=== PATIENT | male | born 1975 | race Hispanic/Latino ===

== ENCOUNTER 2019-10-13 13:41 | Inpatient (IN) | payer OTHER ==
[~2019-10-13] VITALS: Ht 162.6 cm; Wt 59.3 kg
--- OUTSIDE RECORDS SUMMARY | ~2019-10-13 | XMS | Encounter Summary ---
Demographics + + + | Address | [address] | | | [place] [address] | + + + | Home Phone | | + + + | Preferred Language | Unknown | + + + | Marital Status | Single | + + + | Episcopal Affiliation | Unknown | + + + | Race | Unknown | + + + | Ethnic Group | Unknown | + + + Author + + + | Author | [facility] | | | and [place] | + + + | Organization | [facility] | | | and [place] | + + + | Address | Unknown | + + + | Phone | Unavailable | + + + Support + + +---------+ + | Name | Relationship | Address | Phone | + + +---------+ + | Mariella Olguin | ECON | Unknown | | + + +---------+ + Care Team Providers + +------+ + | Care Metal Weigher Name | Role | Phone | + +------+ + | No, Physician | PCP | Unavailable | + +------+ + Reason for Visit Auth/Cert +--------+--------+ + + + + | Status | Reason | Specialty | Diagnoses / | Referred By | Referred To | | | | | Procedures | Contact | Contact | +--------+--------+ + + + + | | | | Diagnoses | | | | | | | Left upper | | | | | | | quadrant | | | | | | | pain Nausea | | | | | | | and | | | | | | | vomiting in | | | | | | | adult | | | | | | | Diabetic | | | | | | | ketoacidosis | | | | | | | without | | | | | | | coma | | | | | | | associated | | | | | | | with type 2 | | | | | | | diabetes | | | | | | | mellitus | | | | | | | (HCC) | | | +--------+--------+ + + + + Encounter Details +--------+ + + + + | Date | Type | Department | Care Team | Description | +--------+ + + + + | 08/05/ | Anesthesia | [facility] | Giuliana Trotter CRNA | | | 2020 | Event [facility] | [address] | | | | | INTRA [address] | [place] [address] | | | | | [address]VD [place], [place] | [phone] | | | | | [address] | | | | | | [phone] | Real Jimenez | | | | | | MD [place] | | [address] | | | | | | [place] [address] | | | | | | [phone] | | | | | | | | +--------+ + + + + Anesthesia Record + + + + + | Procedure Name | Responsible | Anesthesia Start | Anesthesia Stop Time | | | Anesthesiologist | Time | | + + + + + | EDDIE (N/A aPtti) | Giuliana Trotter CRNA | 08/06/19 1435 | 08/06/19 1507 | + + + + + +----+---+ + + | Da | T | Event | Comment | | te | i | | | | | m | | | | | e | | | +----+---+ + + | 03 | 1 | An Checkout | Pre-use anesthesia machine/equipment checkout. | | /2 | 4 | | | | 7/ | 3 | | | | 20 | 0 | | | | 20 | | | | +----+---+ + + | | 1 | An Start | Reassessment prior to anesthesia induction/procedure. | | | 4 | | | | | 3 | | | | | 5 | | | +----+---+ + + | | 1 | First | | | | 4 | Inc/Proc St | | | | 3 | | | | | 6 | | | +----+---+ + + | | 1 | An | | | | 4 | Induction | | | | 3 | | | | | 8 | | | +----+---+ + + | | 1 | An | | | | 4 | Intubation | | | | 4 | | | | | 0 | | | +----+---+ + + | | 1 | Anesthesia | | | | 4 | Ready | | | | 4 | | | | | 2 | | | +----+---+ + + | | 1 | [place] | | | | 4 | 43-degrees | | | | 4 | | | | | 7 | | | +----+---+ + + | | 1 | Extubation/ | | | | 5 | Airway LDA | | | | 0 | Removal | | | | 0 | | | +----+---+ + + | | 1 | an stop | | | | 5 | data | | | | 0 | | | | | 0 | | | +----+---+ + + | | 1 | An Stop | Patient handed off to recovery nurse. | | | 0 | | | | | 7 | | | +----+---+ + + +------+ | Meds | +------+ + +---------+ | Name | Total | + +---------+ | lidocaine 2% | 100 mg | + +---------+ | propofol | 200 mg | + +---------+ | rocuronium | 5 mg | + +---------+ | succinylcholine | 120 mg | + +---------+ | dexamethasone | 4 mg | + +---------+ | phenylephrine | 200 mcg | + +---------+ | ondansetron (ZOFRAN) injection 8 | 4 mg | | mg | | + +---------+ | Plasmalyte | 500 mL | + +---------+ +---------+ | Name | +---------+ | Insp O2 | +---------+ | Exp N2O | +---------+ | Exp SEV | +---------+ + + | No blood administrations on file. | + + +--------+ + + + | Type | Details | Placement | Removal | +--------+ + + + | Periph | 08/06/19; Left; Posterior | 08/06/19 0000 by | | | eraleanna | (dorsal); Forearm; | Elisha Tuttle RN | | | IV | doyv-kzz-uwpulz catheter system; | | | | | 20 gauge | | | +--------+ + + + | Periph | 08/06/19; 1448; Right; Hand; | 08/06/19 1448 by | | | eral | zdlg-frl-eyqhnm catheter system; | Medina Bravo RN | | | IV | 20 gauge | | | +--------+ + + + | Periph | 08/01/19; 0700 (present upon | 08/01/19 0700 by | 08/06/19 1532 by | | eral | arrival); Right; Anterior | Karyn M | Elisha Tuttle RN | | IV | (palmar); Forearm; | VALENTINA Nicole | | | | [id number]-ece-bpqvkm catheter system; | | | | | 20 gauge; removed in past; | | | | | 08/06/19; 1532 | | | +--------+ + + + | Airway | Placement Date: 08/06/19; | 08/06/19 1440 by | 08/06/19 1500 by | | | Placement Time: 1440 (created via | Giuliana Trotter CRNA | Giuliana Trotter CRNA | | | procedure documentation); Mask | | | | | Ventilation: N/A; Airway Grade: | | | | | 1; Successful Technique: video | | | | | scope; Laryngoscope Blade Size: | | | | | 4; Attempts: 1; Airway Type: | | | | | endotracheal; Size: 7.5; Airway | | | | | Tube Secured At: 22; Trauma: | | | | | none; Other Equipment: stylette; | | | | | Placement Check: exhaled CO2 | | | | | detection device, bilateral chest | | | | | rise, breath sounds equal | | | | | bilaterally; Removal Date: | | | | | 08/06/19; Removal Time: 1500; | | | | | Additional Comments: RSI full | | | | | droplet precautiions in place. | | | | | Patient with multiple loose | | | | | teeth, first front toot very | | | | | loose, spoke to Nurse Tobias and | | | | | Dr. Gabriel they were witnessed | | | | | this prior to airway | | | | | manipulation. | | | +--------+ + + + documented in this encounter Social History + +-------+ +--------+------+ | Tobacco Use | Types | Packs/Day | Years | Date | | | | | Used | | + +-------+ +--------+------+ | Never Smoker | | | | | + +-------+ +--------+------+ + +---+---+---+ | Smokeless Tobacco: | | | | | Never Used | | | | + +---+---+---+ + + +---------+ + | Alcohol Use | Drinks/Week | oz/Week | Comments | + + +---------+ + | Not Currently | | | | + + +---------+ + + + + | Sex Assigned at | Date Recorded | | | | + + + | Not on file | | + + + + + + + | Job Start Date | Occupation | Industry | + + + + | Not on file | Not on file | Not on file | + + + + + + + + | Travel History | Travel Start | Travel End | + + + + + + | No recent travel history available. | + + documented as of this encounter Plan of Treatment Not on filedocumented as of this encounter Procedures + +--------+ + + + | Procedure Name | Priori | Date/Time | Associated Diagnosis | Comments | | | ty | | | | + +--------+ + + + | ANE AIRWAY NOTE | Routin | 08/06/2019 | | Results for this | | | e | 2:50 PM | | procedure are in the | | | | PDT | | results section. | + +--------+ + + + documented in this encounter Results Airway (08/06/2019 2:50 PM PDT) + + + | Narrative | Performed At | + + + | Giuliana Trotter CRNA 08/06/2019 2:54 PM Anesthesia Airway | | | Placement 08/06/2019 2:40 PM Preprocedure check: patient | | | identified, oxygen, airway equipment checked, airway assessed, | | | patient reassessment prior to induction and suction Rapid Sequence | | | Induction: yes Mask ventilation: N/A Successful technique: | | | videoscope Laryngoscope blade size: 4 Airway grade: 1 (Full view | | | of glottis) Other equipment: stylette Attempts: 1 Airway type: | | | endotracheal Size: 7.5 Cuffed: cuffed Route, reference point: right | | | side of mouth Tube depth: 22 cm LDA Airway tube secured with: pink | | | tape. Trauma: none Tube placement verification: bilateral chest | | | rise, equal bilateral breath sounds and carbon dioxide detection | | | Performing provider: Giuliana Trotter CRNA Authorizing provider: Giuliana | | | ALEXSANDER Trotter Comments: RSI full droplet precautiions in place. | | | Patient with multiple loose teeth, first front toot very loose, | | | spoke to Nurse Tobias and Dr. Gabriel they were witnessed this prior | | | to airway manipulation. Please see intraoperative grid for any | | | additional medication documentation. | | + + + documented in this encounter Visit Diagnoses Not on filedocumented in this encounter Administered Medications + +---------+ +------+------+------+ | Medication Order | MAR | Action | Dose | Rate | Site | | | Action | Date | | | | + +---------+ +------+------+------+ | balanced electrolytes in water | New Bag | 08/06/19 | | | | | (PLASMALYTE-148/NORMOSOL-R) | | 20 2:49 | | | | | infusion Intravenous, CONTINUOUS | | PM PDT | | | | | PRN, Starting 08/06/19 at | | | | | | | 1449, Anesthesia Intra-op | | | | | | + +---------+ +------+------+------+ +---------+ +---+---+---+ | New Bag | 08/06/19 | | | | | | 20 2:35 | | | | | | PM PDT | | | | +---------+ +---+---+---+ +---+---+ | | | +---+---+ + +-------+ +------+---+---+ | dexamethasone (DECADRON) 4 | Given | 08/06/19 | 4 mg | | | | mg/mL injection Intravenous, | | 20 2:49 | | | | | PRN, Starting Fri08/06/19 at | | PM PDT | | | | | 1449, Anesthesia Intra-op | | | | | | + +-------+ +------+---+---+ +---+---+ | | | +---+---+ + +-------+ +--------+---+---+ | lidocaine (PF) 2% injection | Given | 08/06/19 | 100 mg | | | | Intravenous, PRN, Starting Fri | | 2:38 | | | | | 08/06/19 at 1438, Anesthesia | | PM PDT | | | | | Intra-op | | | | | | + +-------+ +--------+---+---+ +---+---+ | | | +---+---+ + +-------+ +------+---+---+ | ondansetron (ZOFRAN) injection | Given | 08/07/19 | 8 mg | | | | 8 mg 8 mg, Intravenous, EVERY 6 | | 20 1:49 | | | | | HOURS PRN, Nausea, Vomiting, | | AM PDT | | | | | Starting 08/01/19 at 2307, | | | | | | | First line agent , MAx 24 mg/24 | | | | | | | hours, | | | | | | + +-------+ +------+---+---+ +-------+ +------+---+---+ | Given | 08/06/19 | 4 mg | | | | | 20 2:49 | | | | | | PM PDT | | | | +-------+ +------+---+---+ | Given | 08/06/19 | 8 mg | | | | | 20 7:48 | | | | | | AM PDT | | | | +-------+ +------+---+---+ +---+---+ | | | +---+---+ + +-------+ +---------+---+---+ | phenylephrine (LUBA-SYNEPHRINE, | Given | 08/06/19 | 200 mcg | | | | VAZCULEP) 10 mg per mL injection | | 20 2:45 | | | | | Intravenous, PRN, Starting Fri | | PM PDT | | | | | 08/06/19 at 1445, Anesthesia | | | | | | | Intra-op | | | | | | + +-------+ +---------+---+---+ +---+---+ | | | +---+---+ + +-------+ +--------+---+---+ | propofol (DIPRIVAN) injection | Given | 08/06/19 | 200 mg | | | | Intravenous, PRN, Starting Fri | | 20 2:38 | | | | | 08/06/19 at 1438, Anesthesia | | PM PDT | | | | | Intra-op | | | | | | + +-------+ +--------+---+---+ +---+---+ | | | +---+---+ + +-------+ +------+---+---+ | rocuronium (ZEMURON) injection | Given | 08/06/19 | 5 mg | | | | Intravenous, PRN, Starting Fri | | 20 2:38 | | | | | 08/06/19 at 1438, Anesthesia | | PM PDT | | | | | Intra-op | | | | | | + +-------+ +------+---+---+ +---+---+ | | | +---+---+ + +-------+ +--------+---+---+ | succinylcholine (ANECTINE) | Given | 08/06/19 | 120 mg | | | | injection Intravenous, PRN, | | 20 2:38 | | | | | Starting 08/06/19 at 1438, | | PM PDT | | | | | Anesthesia Intra-op | | | | | | + +-------+ +--------+---+---+ +---+---+ | | | +---+---+ documented in this encounter"
--- OUTSIDE RECORDS SUMMARY | ~2019-10-13 | XMS | Clinical Summary ---
Demographics + + + | Address | [address] | | | [place] [address] | + + + | Home Phone | | + + + | Preferred Language | Unknown | + + + | Marital Status | Single | + + + | Taoist Affiliation | Unknown | + + + | Race | Unknown | + + + | Ethnic Group | Unknown | + + + Author + + + | Author | [facility] | | | and [place] | + + + | Organization | [facility] | | | and [...] Team Providers + +------+ + | Care Personal Fitness Manager Name | Role | Phone | + +------+ + | No, Physician | PCP | Unavailable | + +------+ + Allergies No Known Allergies Medications + + + +---------+------+------+-------+ | Medication | Sig | Dispensed | Refills | Star | End | Statu | | | | | | t | Date | s | | | | | | Date | | | + + + +---------+------+------+-------+ | atorvaSTATin | Take 20 mg by mouth | | 0 | | | Activ | | (LIPITOR) 20 mg | nightly. | | | | | e | | tablet | | | | | | | + + + +---------+------+------+-------+ | lisinopril | Take 1 tablet by | 30 | 0 | 03/2 | | Activ | | (PRINIVIL,ZESTRIL) | mouth Daily. | tablet | | 9/20 | | e | | 40 MG tablet | | | | 20 | | | + + + +---------+------+------+-------+ | insulin glargine | Inject 15 Units | 2 pen | 1 | 03/2 | | Activ | | (LANTUS SOLOSTAR) | under the skin every | | | 9/20 | | e | | 100 units/mL | morning. | | | 20 | | | | injection (pen) | | | | | | | + + + +---------+------+------+-------+ | insulin lispro | Inject 0-12 Units | 10 mL | 1 | 03/2 | | Activ | | (HUMALOG) 100 | under the skin 4 | | | 8/20 | | e | | units/mL injection | times daily (with | | | 20 | | | | (vial) | meals and nightly). | | | | | | | | ---BG < 150: noneBG | | | | | | | | 150-200: 2 unitsBG | | | | | | | | 201-250: 4 unitsBG | | | | | | | | 251-300: 6 unitsBG | | | | | | | | 301-350: 8 unitsBG | | | | | | | | 351-400: 10 units BG | | | | | | | | > 400: 12 units and | | | | | | | | call provider | | | | | | + + + +---------+------+------+-------+ | oxyCODONE | Take 1 tablet by | 15 | 0 | 03/2 | | Activ | | (ROXICODONE) 5 mg | mouth every 6 hours | tablet | | 8/20 | | e | | tablet | as needed for Pain. | | | 20 | | | + + + +---------+------+------+-------+ Active Problems + + + | Problem | Noted Date | + + + | Diabetic ketoacidosis without coma associated with type 2 | 07/31/2019 | | diabetes mellitus | | + + + | HLD (hyperlipidemia) | 07/31/2019 | + + + | HTN (hypertension) | 07/31/2019 | + + + | Left upper quadrant pain | 07/31/2019 | + + + | Mild colitis, acute; splenic flexure and descending colon | 07/31/2019 | + + + | Nausea and vomiting in adult | 07/31/2019 | + + + + + | Overview: Added automatically from request for surgery | | [id number] | + + Encounters +--------+ + + + + | Date | Type | Specialty | Care Team | Description | +--------+ + + + + | 08/05/ | Anesthesia | | Giuliana Trotter CRNA | | | 2020 | Event | | Real Jimenez | | | | | | MD Latrell | | +--------+ + + + + | 08/05/ | Surgery | | Tran Vidal | EGD | | 2019 | | | MD Abbe | | +--------+ + + + + | 07/30/ | Hospital | Internal Medicine | Dao De Jesus MD | Diabetic | | 2019 - | Encounter | | Estiven Hauser MD | ketoacidosis without | | | | | Pineda Pace MD | coma associated | | 08/06/ | | | Dion Terrell MD | with type 2 diabetes | | 2019 | | | | mellitus (HCC) | | | | | | (Primary Dx); Left | | | | | | upper quadrant pain; | | | | | | Nausea and vomiting | | | | | | in adult; Diabetic | | | | | | ketoacidosis without | | | | | | coma associated | | | | | | with type 2 diabetes | | | | | | mellitus (HCC); | | | | | | Left upper quadrant | | | | | | pain; Nausea and | | | | | | vomiting in adult | +--------+ + + + + from Last 3 Months Social History + +-------+ +--------+------+ | Tobacco [...] recent travel history available. | + + Last Filed Vital Signs + + + + + | Vital Sign | Reading | Time Taken | Comments | + + + + + | Blood Pressure | 163/99 | 08/07/2019 12:11 PM | | | | | PDT | | + + + + + | Pulse | 78 | 08/07/2019 12:00 PM | | | | | PDT | | + + + + + | Temperature | 36.6 C (97.8 F) | 08/07/2019 12:00 PM | | | | | PDT | | + + + + + | Respiratory Rate | 18 | 08/07/2019 12:00 PM | | | | | PDT | | + + + + + | Oxygen Saturation | 97% | 08/07/2019 12:00 PM | | | | | PDT | | + + + + + | Inhaled Oxygen | - | - | | | Concentration | | | | + + + + + | Weight | 58.8 kg (129 lb 9.6 | 08/07/2019 3:34 AM | | | | oz) | PDT | | + + + + + | Height | 160 cm (5' 3") | 07/31/2019 11:54 PM | | | | | PDT | | + + + + + | Body Mass Index | 22.96 | 07/31/2019 11:54 PM | | | | | PDT | | + + + + + Plan of Treatment + + + + + | Health Maintenance | Due Date | Last Done | Comments | + + + + + | Vaccine: | | | | | Pneumococcal 19-64 | 0 | | | | (1 of 1 - PPSV23) | | | | + + + + + | Diabetic Eye Exam | | | | | | 2 | | | + + + + + | Diabetic Foot Exam | | | | | | 2 | | | + + + + + | Hemoglobin A1c | | 08/01/2019 | | | Screening | 0 | | | + + + + + | Vaccine: Influenza | | | | | (Season Ended) | 0 | | | + + + + + | Vaccine: | | 12/20/2015 | | | Dtap/Tdap/Td (2 - | 6 | | | | Td) | | | | + + + + + Procedures + +--------+ + + + | Procedure Name | Priori | Date/Time | Associated Diagnosis | Comments | | | ty | | | | + +--------+ + + + | POC GLUCOSE (NON | Routin | 08/07/2019 | | Results for this | | ORD) | e | 12:20 PM | | procedure are in the | | | | PDT | | results section. | + +--------+ + + + | POC GLUCOSE (NON | Routin | 08/07/2019 | | Results for this | | ORD) | e | 7:47 AM | | procedure are in the | | | | PDT | | results section. | + +--------+ + + + | POC GLUCOSE (NON | Routin | 08/07/2019 | | Results for this | | ORD) | e | 6:26 AM | | procedure are in the | | | | PDT | | results section. | + +--------+ + + + | BASIC METABOLIC | STAT | 08/07/2019 | | Results for this | | PANEL | | 4:21 AM | | procedure are in the | | | | PDT | | results section. | + +--------+ + + + | PHOSPHORUS | Routin | 08/07/2019 | | Results for this | | | e | 4:21 AM | | procedure are in the | | | | PDT | | results section. | + +--------+ + + + | CBC WITH | Routin | 08/07/2019 | | Results for this | | DIFFERENTIAL | e | 4:21 AM | | procedure are in the | | | | PDT | | results section. | + +--------+ + + + | POC GLUCOSE (NON | Routin | 08/06/2019 | | Results for this | | ORD) | e | 8:55 PM | | procedure are in the | | | | PDT | | results section. | + +--------+ + + + | US ABDOMEN LIMITED | Routin | 08/06/2019 | | Results for this | | | e | 6:33 PM | | procedure are in the | | | | PDT | | results section. | + +--------+ + + + | POC GLUCOSE (NON | Routin | 08/06/2019 | | Results for this | | ORD) | e | 4:49 PM | | procedure are in the | | | | PDT | | results section. | + +--------+ + + + | POC GLUCOSE (NON | Routin | 08/06/2019 | | Results for this | | ORD) | e | 3:21 PM | | procedure are in the | | | | PDT | | results section. | + +--------+ + + + | ANE AIRWAY NOTE | Routin | 08/06/2019 | | Results for this | | | e | 2:50 PM | | procedure are in the | | | | PDT | | results section. | + +--------+ + + + | *TERMED* [place] UPPER GI | Routin | 08/06/2019 | | Results for this | | ENDOSCOPY,EXAM | e | 2:32 PM | | procedure are in the | | | | PDT | | results section. | + +--------+ + + + | *TERMED* [place] UPPER GI | Routin | 08/06/2019 | | Results for this | | ENDOSCOPY,EXAM | e | 2:27 PM | | procedure are in the | | | | PDT | | results section. | + +--------+ + + + | EGD | | 08/06/2019 | Left upper | | | | | 2:24 PM | quadrant pain | | | | | PDT | Nausea and vomiting | | | | | | in adult | | + +--------+ + + + | HC DRUG TEST PRSMV | Routin | 08/06/2019 | | Results for this | | CHEM REYNA TENA | e | 1:31 PM | | procedure are in the | | | | PDT | | results section. | + +--------+ + + + | POC GLUCOSE (NON | Routin | 08/06/2019 | | Results for this | | ORD) | e | 11:55 AM | | procedure are in the | | | | PDT | | results section. | + +--------+ + + + | POC GLUCOSE (NON | Routin | 08/06/2019 | | Results for this | | ORD) | e | 9:29 AM | | procedure are in the | | | | PDT | | results section. | + +--------+ + + + | POC GLUCOSE (NON | Routin | 08/06/2019 | | Results for this | | ORD) | e | 8:03 AM | | procedure are in the | | | | PDT | | results section. | + +--------+ + + + | BASIC METABOLIC | STAT | 08/06/2019 | | Results for this | | PANEL | | 4:23 AM | | procedure are in the | | | | PDT | | results section. | + +--------+ + + + | PHOSPHORUS | Routin | 08/06/2019 | | Results for this | | | e | 4:23 AM | | procedure are in the | | | | PDT | | results section. | + +--------+ + + + | CBC WITH | Routin | 08/06/2019 | | Results for this | | DIFFERENTIAL | e | 4:23 AM | | procedure are in the | | | | PDT | | results section. | + +--------+ + + + | POC GLUCOSE (NON | Routin | 08/05/2019 | | Results for this | | ORD) | e | 9:11 PM | | procedure are in the | | | | PDT | | results section. | + +--------+ + + + | POC GLUCOSE (NON | Routin | 08/05/2019 | | Results for this | | ORD) | e | 5:47 PM | | procedure are in the | | | | PDT | | results section. | + +--------+ + + + | POTASSIUM | STAT | 08/05/2019 | | Results for this | | | | 3:11 PM | | procedure are in the | | | | PDT | | results section. | + +--------+ + + + | POC GLUCOSE (NON | Routin | 08/05/2019 | | Results for this | | ORD) | e | 11:50 AM | | procedure are in the | | | | PDT | | results section. | + +--------+ + + + | CT CHEST ABDOMEN | Routin | 08/05/2019 | | Results for this | | PELVIS W CONTRAST | e | 11:13 AM | | procedure are in the | | | | PDT | | results section. | + +--------+ + + + | POC GLUCOSE (NON | Routin | 08/05/2019 | | Results for this | | ORD) | e | 7:35 AM | | procedure are in the | | | | PDT | | results section. | + +--------+ + + + | BASIC METABOLIC | Routin | 08/05/2019 | | Results for this | | PANEL | e | 4:37 AM | | procedure are in the | | | | PDT | | results section. | + +--------+ + + + | PHOSPHORUS | Routin | 08/05/2019 | | Results for this | | | e | 4:37 AM | | procedure are in the | | | | PDT | | results section. | + +--------+ + + + | CBC WITH | Routin | 08/05/2019 | | Results for this | | DIFFERENTIAL | e | 4:37 AM | | procedure are in the | | | | PDT | | results section. | + +--------+ + + + | POC GLUCOSE (NON | Routin | 08/04/2019 | | Results for this | | ORD) | e | 9:14 PM | | procedure are in the | | | | PDT | | results section. | + +--------+ + + + | POTASSIUM | STAT | 08/04/2019 | | Results for this | | | | 8:51 PM | | procedure are in the | | | | PDT | | results section. | + +--------+ + + + | POC GLUCOSE (NON | Routin | 08/04/2019 | | Results for this | | ORD) | e | 5:22 PM | | procedure are in the | | | | PDT | | results section. | + +--------+ + + + | POTASSIUM | Timed | 08/04/2019 | | Results for this | | | | 1:56 PM | | procedure are in the | | | | PDT | | results section. | + +--------+ + + + | POC GLUCOSE (NON | Routin | 08/04/2019 | | Results for this | | ORD) | e | 11:56 AM | | procedure are in the | | | | PDT | | results section. | + +--------+ + + + | POC GLUCOSE (NON | Routin | 08/04/2019 | | Results for this | | ORD) | e | 8:03 AM | | procedure are in the | | | | PDT | | results section. | + +--------+ + + + | PHOSPHORUS | Routin | 08/04/2019 | | Results for this | | | e | 5:35 AM | | procedure are in the | | | | PDT | | results section. | + +--------+ + + + | MAGNESIUM | Routin | 08/04/2019 | | Results for this | | | e | 5:35 AM | | procedure are in the | | | | PDT | | results section. | + +--------+ + + + | CBC WITH | Routin | 08/04/2019 | | Results for this | | DIFFERENTIAL | e | 5:35 AM | | procedure are in the | | | | PDT | | results section. | + +--------+ + + + | COMPREHENSIVE | Routin | 08/04/2019 | | Results for this | | METABOLIC PANEL | e | 5:35 AM | | procedure are in the | | | | PDT | | results section. | + +--------+ + + + | POC GLUCOSE (NON | Routin | 08/03/2019 | | Results for this | | ORD) | e | 8:44 PM | | procedure are in the | | | | PDT | | results section. | + +--------+ + + + | POC GLUCOSE (NON | Routin | 08/03/2019 | | Results for this | | ORD) | e | 4:25 PM | | procedure are in the | | | | PDT | | results section. | + +--------+ + + + | POC GLUCOSE (NON | Routin | 08/03/2019 | | Results for this | | ORD) | e | 11:44 AM | | procedure are in the | | | | PDT | | results section. | + +--------+ + + + | POC GLUCOSE (NON | Routin | 08/03/2019 | | Results for this | | ORD) | e | 7:29 AM | | procedure are in the | | | | PDT | | results section. | + +--------+ + + + | PHOSPHORUS | Routin | 08/03/2019 | | Results for this | | | e | 5:43 AM | | procedure are in the | | | | PDT | | results section. | + +--------+ + + + | MAGNESIUM | Routin | 08/03/2019 | | Results for this | | | e | 5:43 AM | | procedure are in the | | | | PDT | | results section. | + +--------+ + + + | CBC WITH | Routin | 08/03/2019 | | Results for this | | DIFFERENTIAL | e | 5:43 AM | | procedure are in the | | | | PDT | | results section. | + +--------+ + + + | COMPREHENSIVE | Routin | 08/03/2019 | | Results for this | | METABOLIC PANEL | e | 5:43 AM | | procedure are in the | | | | PDT | | results section. | + +--------+ + + + | POC GLUCOSE (NON | Routin | 08/02/2019 | | Results for this | | ORD) | e | 8:59 PM | | procedure are in the | | | | PDT | | results section. | + +--------+ + + + | POC GLUCOSE (NON | Routin | 08/02/2019 | | Results for this | | ORD) | e | 3:58 PM | | procedure are in the | | | | PDT | | results section. | + +--------+ + + + | POC GLUCOSE (NON | Routin | 08/02/2019 | | Results for this | | ORD) | e | 12:51 PM | | procedure are in the | | | | PDT | | results section. | + +--------+ + + + | POC GLUCOSE (NON | Routin | 08/02/2019 | | Results for this | | ORD) | e | 8:26 AM | | procedure are in the | | | | PDT | | results section. | + +--------+ + + + | PHOSPHORUS | Routin | 08/02/2019 | | Results for this | | | e | 4:24 AM | | procedure are in the | | | | PDT | | results section. | + +--------+ + + + | MAGNESIUM | Routin | 08/02/2019 | | Results for this | | | e | 4:24 AM | | procedure are in the | | | | PDT | | results section. | + +--------+ + + + | CBC WITH | Routin | 08/02/2019 | | Results for this | | DIFFERENTIAL | e | 4:24 AM | | procedure are in the | | | | PDT | | results section. | + +--------+ + + + | COMPREHENSIVE | Routin | 08/02/2019 | | Results for this | | METABOLIC PANEL | e | 4:24 AM | | procedure are in the | | | | PDT | | results section. | + +--------+ + + + | POC GLUCOSE (NON | Routin | 08/01/2019 | | Results for this | | ORD) | e | 9:18 PM | | procedure are in the | | | | PDT | | results section. | + +--------+ + + + | POC GLUCOSE (NON | Routin | 08/01/2019 | | Results for this | | ORD) | e | 3:37 PM | | procedure are in the | | | | PDT | | results section. | + +--------+ + + + | POC GLUCOSE (NON | Routin | 08/01/2019 | | Results for this | | ORD) | e | 1:36 PM | | procedure are in the | | | | PDT | | results section. | + +--------+ + + + | PHOSPHORUS | RICCO | 08/01/2019 | | Results for this | | | | 11:52 AM | | procedure are in the | | | | PDT | | results section. | + +--------+ + + + | MAGNESIUM | RICCO | 08/01/2019 | | Results for this | | | | 11:52 AM | | procedure are in the | | | | PDT | | results section. | + +--------+ + + + | BASIC METABOLIC | RICCO | 08/01/2019 | | Results for this | | PANEL | | 11:52 AM | | procedure are in the | | | | PDT | | results section. | + +--------+ + + + | POC GLUCOSE (NON | Routin | 08/01/2019 | | Results for this | | ORD) | e | 11:13 AM | | procedure are in the | | | | PDT | | results section. | + +--------+ + + + | POC GLUCOSE (NON | Routin | 08/01/2019 | | Results for this | | ORD) | e | 9:51 AM | | procedure are in the | | | | PDT | | results section. | + +--------+ + + + | POC GLUCOSE (NON | Routin | 08/01/2019 | | Results for this | | ORD) | e | 8:54 AM | | procedure are in the | | | | PDT | | results section. | + +--------+ + + + | HEMOGLOBIN A1C | Add-On | 08/01/2019 | | Results for this | | | | 7:46 AM | | procedure are in the | | | | PDT | | results section. | + +--------+ + + + | PHOSPHORUS | RICCO | 08/01/2019 | | Results for this | | | | 7:46 AM | | procedure are in the | | | | PDT | | results section. | + +--------+ + + + | MAGNESIUM | RICCO | 08/01/2019 | | Results for this | | | | 7:46 AM | | procedure are in the | | | | PDT | | results section. | + +--------+ + + + | BASIC METABOLIC | RICCO | 08/01/2019 | | Results for this | | PANEL | | 7:46 AM | | procedure are in the | | | | PDT | | results section. | + +--------+ + + + | POC GLUCOSE (NON | Routin | 08/01/2019 | | Results for this | | ORD) | e | 7:40 AM | | procedure are in the | | | | PDT | | results section. | + +--------+ + + + | POC GLUCOSE (NON | Routin | 08/01/2019 | | Results for this | | ORD) | e | 6:20 AM | | procedure are in the | | | | PDT | | results section. | + +--------+ + + + | URINALYSIS WITH | STAT | 08/01/2019 | | Results for this | | MICROSCOPIC | | 5:43 AM | | procedure are in the | | | | PDT | | results section. | + +--------+ + + + | POC GLUCOSE (NON | Routin | 08/01/2019 | | Results for this | | ORD) | e | 5:29 AM | | procedure are in the | | | | PDT | | results section. | + +--------+ + + + | PHOSPHORUS | RICCO | 08/01/2019 | | Results for this | | | | 4:23 AM | | procedure are in the | | | | PDT | | results section. | + +--------+ + + + | MAGNESIUM | RICCO | 08/01/2019 | | Results for this | | | | 4:23 AM | | procedure are in the | | | | PDT | | results section. | + +--------+ + + + | CBC WITH | Routin | 08/01/2019 | | Results for this | | DIFFERENTIAL | e | 4:23 AM | | procedure are in the | | | | PDT | | results section. | + +--------+ + + + | BASIC METABOLIC | RICCO | 08/01/2019 | | Results for this | | PANEL | | 4:23 AM | | procedure are in the | | | | PDT | | results section. | + +--------+ + + + | POC GLUCOSE (NON | Routin | 08/01/2019 | | Results for this | | ORD) | e | 4:21 AM | | procedure are in the | | | | PDT | | results section. | + +--------+ + + + | POC GLUCOSE (NON | Routin | 08/01/2019 | | Results for this | | ORD) | e | 3:28 AM | | procedure are in the | | | | PDT | | results section. | + +--------+ + + + | POC GLUCOSE (NON | Routin | 08/01/2019 | | Results for this | | ORD) | e | 2:02 AM | | procedure are in the | | | | PDT | | results section. | + +--------+ + + + | POC GLUCOSE (NON | Routin | 08/01/2019 | | Results for this | | ORD) | e | 1:23 AM | | procedure are in the | | | | PDT | | results section. | + +--------+ + + + | POC GLUCOSE (NON | Routin | 08/01/2019 | | Results for this | | ORD) | e | 12:07 AM | | procedure are in the | | | | PDT | | results section. | + +--------+ + + + | POC GLUCOSE (NON | Routin | 07/31/2019 | | Results for this | | ORD) | e | 11:12 PM | | procedure are in the | | | | PDT | | results section. | + +--------+ + + + | CT ABDOMEN PELVIS W | R[facility]CO | 07/31/2019 | | Results for this | | CONTRAST | | 10:25 PM | | procedure are in the | | | | PDT | | results section. | + +--------+ + + + | HC BLOOD GASES ANY | Routin | 07/31/2019 | | Results for this | | COMBINATION | e | 9:57 PM | | procedure are in the | | | | PDT | | results section. | + +--------+ + + + | RT BLOOD GAS POINT | Routin | 07/31/2019 | | | | OF CARE | e | 9:26 PM | | | | | | PDT | | | + +--------+ + + + | ECG 12 LEAD | STAT | 07/31/2019 | | Results for this | | | | 9:02 PM | | procedure are in the | | | | PDT | | results section. | + +--------+ + + + | KETONES,SERUM | Routin | 07/31/2019 | | Results for this | | | e | 8:41 PM | | procedure are in the | | | | PDT | | results section. | + +--------+ + + + | TROPONIN I | Routin | 07/31/2019 | | Results for this | | | e | 8:41 PM | | procedure are in the | | | | PDT | | results section. | + +--------+ + + + | LIPASE | STAT | 07/31/2019 | | Results for this | | | | 8:41 PM | | procedure are in the | | | | PDT | | results section. | + +--------+ + + + | COMPREHENSIVE | STAT | 07/31/2019 | | Results for this | | METABOLIC PANEL | | 8:41 PM | | procedure are in the | | | | PDT | | results section. | + +--------+ + + + | CBC WITH | STAT | 07/31/2019 | | Results for this | | DIFFERENTIAL | | 8:41 PM | | procedure are in the | | | | PDT | | results section. | + +--------+ + + + from Last 3 Months Results POC Glucose (08/07/2019 12:20 PM PDT)Only the most recent of 40 results within the time per iod is included. + + + + + + | Component | Value | Ref Range | Performed | Pathologist | | | | | At | Signature | + + + + + + | Glucose, | 179 (H)Comment: Testing | 65 - 99 mg/dL | [facility] | | | POC | performed at [facility] [id number] | | | [address];[place], [place] | | | | | | [id number] | | | | + + + + + + + + | Specimen | + + | | + + + + + + + | Performing | Address | City/State/Zipcode | Phone Number | | Organization | | | | + + + + + | [facility] | [address] | [place] [address] | [phone] | + + + + + CBC with Differential (08/07/2019 4:21 AM PDT)Only the most recent of 8 results within the time period is included. + + + + + + | Component | Value | Ref Range | Performed | Pathologist | | | | | At | Signature | + + + + + + | WBC | 7.76 | 3.80 - 11.00 | [facility] | | | | | K/uL | LABORATORY | | + + + + + + | RBC | 4.24 | 4.20 - 5.70 | [facility] | | | | | M/uL | LABORATORY | | + + + + + + | Hemoglobin | 12.8 (L) | 13.2 - 17.0 | [facility] | | | | | g/dL | LABORATORY | | + + + + + + | Hematocrit | 36.7 (L) | 39.0 - 50.0 % | [facility] | | | | | | LABORATORY | | + + + + + + | MCV | 86.6 | 80.0 - 100.0 fl | [facility] | | | | | | LABORATORY | | + + + + + + | MCH | 30.2 | 27.0 - 34.0 pg | [facility] | | | | | | LABORATORY | | + + + + + + | MCHC | 34.9 | 32.0 - 35.5 | [facility] | | | | | g/dL | LABORATORY | | + + + + + + | RDW-SD | 37.2 | 37 - 53 fl | [facility] | | | | | | LABORATORY | | + + + + + + | Platelet | 313 | 150 - 400 K/uL | [facility] | | | Count | | | LABORATORY | | + + + + + + | MPV | 8.6Comment: NO NORMAL | fl | [facility] | | | | RANGE ESTABLISHED | | LABORATORY | | + + + + + + | Diff Type | AUTOMATED | | [facility] | | | | | | LABORATORY | | + + + + + + | % nRBC | 0.0 | 0 /100WBC | [facility] | | | | | | LABORATORY | | + + + + + + | % | 61.70 | % | [facility] | | | Neutrophils | | | LABORATORY | | + + + + + + | IMMATURE | 0.10 | % | [facility] | | | GRANULOCYTE | | | LABORATORY | | + + + + + + | % | 23.70 | % | [facility] | | | Lymphocytes | | | LABORATORY | | + + + + + + | Monocyte % | 13.90 | % | [facility] | | | | | | LABORATORY | | + + + + + + | Eosinophils | 0.30 | % | [facility] | | | % | | | LABORATORY | | + + + + + + | Basophils % | 0.30 | % | [facility] | | | | | | LABORATORY | | + + + + + + | Neutrophils | 4.79 | 1.90 - 7.40 | [facility] | | | , Absolute | | K/uL | LABORATORY | | + + + + + + | IMMATURE | 0.01Comment: NOTE NEW | 0.00 - 0.07 | [facility] | | | GRANS AB | REFERENCE RANGE | K/uL | LABORATORY | | + + + + + + | Absolute | 1.84 | 1.00 - 3.90 | [facility] | | | Lymphocytes | | K/uL | LABORATORY | | + + + + + + | Absolute | 1.08 (H) | 0.00 - 0.80 | [facility] | | | Monocytes | | K/uL | LABORATORY | | + + + + + + | Eosinophils | 0.02 | 0.00 - 0.50 | [facility] | | | , Absolute | | K/uL | LABORATORY | | + + + + + + | Basophils, | 0.02Comment: Testing | 0.00 - 0.10 | [facility] | | | Absolute | performed [place] [facility] [place] | LABORATORY | | | | [address];[place], [place] | | | | | | [id number] | | | | + + + + + + + + | Specimen | + + | Blood | + + + + + + + | Performing | Address | City/State/Zipcode | Phone Number | | Organization | | | | + + + + + | [facility] | [address] | [place] [address] | [phone] | + + + + + Phosphorus (08/07/2019 4:21 AM PDT)Only the most recent of 9 results within the time shirleyo d is included. + + + + + + | Component | Value | Ref Range | Performed | Pathologist | | | | | At | Signature | + + + + + + | Phosphorus | 3.2Comment: Testing | 2.3 - 4.8 mg/dL | [facility] | | | | performed at [facility] [place] | [facility]ORY | | | | [address];[place] | | | | | | [id number] | | | | + + + + + + + + | Specimen | + + | Blood | + + + + + + + | Performing | Address | City/State/Zipcode | Phone Number | | Organization | | | | + + + + + | [facility] | [address] | [place] [id number] | [phone] | + + + + + Basic Metabolic Panel (08/07/2019 4:21 AM PDT)Only the most recent of 6 results within the time period is included. + + + + + + | Component | Value | Ref Range | Performed | Pathologist | | | | | At | Signature | + + + + + + | Na | 140 | 135 - 145 | [facility] | | | | | mmol/L | LABORATORY | | + + + + + + | K | 3.1 (L) | 3.5 - 4.9 | [facility] | | | | | mmol/L | LABORATORY | | + + + + + + | Cl | 99 | 99 - 109 mmol/L | [facility] | | | | | | LABORATORY | | + + + + + + | CO2 | 29 | 23 - 32 mmol/L | [facility] | | | | | | LABORATORY | | + + + + + + | Anion Gap | 15 | 5 - 20 mmol/L | [facility] | | | | | | LABORATORY | | + + + + + + | Glucose | 210 (H) | 65 - 99 mg/dL | [facility] | | | | | | LABORATORY | | + + + + + + | BUN | 8 | 8 - 25 mg/dL | [facility] | | | | | | LABORATORY | | + + + + + + | Creatinine | 0.76 | 0.70 - 1.30 | [facility] | | | | | mg/dL | LABORATORY | | + + + + + + | BUN/Creatin | 11 | | [facility] | | | ine Ratio | | | LABORATORY | | + + + + + + | Calcium | 9.0 | 8.5 - 10.5 | [facility] | | | | | mg/dL | LABORATORY | | + + + + + + | Estimated | >60Comment: GFR <60: | >60 | [facility] | | | GFR | CHRONIC KIDNEY DISEASE, | mL/min/1.73m2 | LABORATORY | | | | IF FOUND OVER A 3 MONTH | | | | | | PERIOD.GFR <15: KIDNEY | | | | | | FAILURE.FOR | | | | | | AMERICANS, MULTIPLY THE | | | | | | CALCULATED GFR BY | | | | | | 1.210.This eGFR is | | | | | | calculated using the | | | | | | MDRD [facility] traceable | | | | | | equation.Testing | | | | | | performed [place] [facility] [place];[place], [place] | | | | | | [address] | | | | + + + + + + + + | Specimen | + + | Blood | + + + + + + + | Performing | Address | City/State/Zipcode | Phone Number | | Organization | | | | + + + + + | [facility] | [address] | [place] [address] | [phone] | + + + + + US Abdomen Limited (08/06/2019 6:33 PM PDT) + + | Specimen | + + | | + + + + + | Impressions | Performed At | + + + | Sludge seen in the gallbladder lumen without wall thickening or | [facility] | | pericholecystic fluid to suggest cholecystitis. Signed by: | | | Jimmy Goldberg Edward Sign Date/Time: 08/06/2019 7:10 PM | | + + + + + + | Narrative | Performed At | + + + | ULTRASOUND ABDOMEN, LIMITED CLINICAL INFORMATION: | [facility] | | Unexplained abdominal pain. COMPARISON: CT CHEST ABDOMEN PELVIS W | | | CONTRAST (08/05/2019); CT ABDOMEN PELVIS W CONTRAST (07/31/2019); | | | PROCEDURE: Evaluation of the gallbladder, if present, common bile | | | duct, liver, and right kidney. FINDINGS: Pancreas: Poorly | | | visualized. Liver: The visualized hepatic parenchyma is normal. | | | The intrahepatic bile ducts do not appear to be enlarged. The | | | portal and hepatic veins demonstrate normal direction of flow. | | | Gallbladder/Bile Duct: Gallbladder shows sludge in the lumen. Wall | | | thickness measures 2.9 mm. No pericholecystic fluid is seen. | | | Common bile duct 8.0 mm. Sonographic Gallo sign is negative. | | | Right kidney: 12.5 x 5.2 x 4.3 cm. No solid renal mass, | | | hydronephrosis or definitive calculi. Normal blood flow noted to | | | the right renal hilum. IVC normal. No ascites. | | + + + + + | Procedure Note | + + | Tobias, Rad Results In - 08/06/2019 7:13 PM PDT | | ULTRASOUND ABDOMEN, LIMITED | | | | CLINICAL INFORMATION: | | Unexplained abdominal pain. | | | | COMPARISON: | | CT CHEST ABDOMEN PELVIS W CONTRAST (08/05/2019); CT ABDOMEN PELVIS W | | CONTRAST (07/31/2019); | | | | PROCEDURE: | | Evaluation of the gallbladder, if present, common bile duct, liver, and | | right kidney. | | | | FINDINGS: | | Pancreas: Poorly visualized. | | | | Liver: The visualized hepatic parenchyma is normal. The intrahepatic | | bile ducts do not appear to be enlarged. The portal and hepatic veins | | demonstrate normal direction of flow. | | | | Gallbladder/Bile Duct: Gallbladder shows sludge in the lumen. Wall | | thickness measures 2.9 mm. No pericholecystic fluid is seen. Common | | bile duct 8.0 mm. Sonographic Gallo sign is negative. | | | | Right kidney: 12.5 x 5.2 x 4.3 cm. No solid renal mass, hydronephrosis | | or definitive calculi. Normal blood flow noted to the right renal | | hilum. | | | | IVC normal. No ascites. | | | | IMPRESSION: | | Sludge seen in the gallbladder lumen without wall thickening or | | pericholecystic fluid to suggest cholecystitis. | | | | | | | | Signed by: Jimmy Goldberg Edward | | Sign Date/Time: 08/06/2019 7:10 PM | + + + +---------+ + + | Performing | Address | City/State/Zipcode | Phone Number | | Organization | | | | + +---------+ + + | [facility] | | | | + +---------+ + + Airway (08/06/2019 2:50 PM PDT) + + [...] loose, | | | spoke to Nurse Micheline and Dr. Gabriel they were witnessed this prior | | | to airway manipulation. Please see intraoperative grid for any | | | additional medication documentation. | | + + + EGD (08/06/2019 2:32 PM PDT) + + | Specimen | + + | | + + + + + | Narrative | Performed At | + + + | [facility] | [facility] | | [facility] | [facility] | [facility] | | | Patient Name: Minerva Rodriguez , | | | Sacha Procedure Date: 08/06/2019 2:32 PMMRN: [id number] | | | of : | | | 1975 Note Status: FinalizedAttending MD: | | | Tran Vidal MD | | | | | | Procedure Type: Upper GI endoscopyIndications: | | | Epigastric abdominal painMedicines: | | | General AnesthesiaComplications: No immediate | | | complications. | | | Procedure: Pre-Anesthesia Assessment: | | | - Prior to the procedure, a History and Physical was performed, and | | | patient medications and allergies were reviewed. The patient's | | | tolerance of previous anesthesia was also reviewed. The risks | | | and benefits of the procedure and the sedation options and | | | risks were discussed with the patient. All questions were | | | answered, and informed consent was obtained. Prior | | | Anticoagulants: The patient has taken Lovenox (enoxaparin), last | | | dose was day of procedure. ASA Grade Assessment: III - A patient | | | with severe systemic disease. After reviewing the risks and | | | benefits, the patient was deemed in satisfactory condition to | | | undergo the procedure. After obtaining informed consent, the | | | endoscope was passed under direct vision. Throughout the | | | procedure, the patient's blood pressure, pulse, and oxygen | | | saturations were monitored continuously. The Endoscope was | | | introduced through the mouth, and advanced to the fourth part of | | | duodenum. The upper GI endoscopy was accomplished without | | | difficulty. The patient tolerated the procedure well. | | | | | | Estimated Blood Loss: | | | Estimated blood loss: none.Findings: LA Grade C (one or more | | | mucosal breaks continuous between tops of 2 or more mucosal | | | folds, less than 75% circumference) esophagitis was found 25 to | | | 40 cm from the incisors. Diffuse moderately erythematous mucosa | | | without bleeding was found in the stomach. The duodenal | | | bulb, first portion of the duodenum, second portion of the | | | duodenum, third portion of the duodenum and fourth portion of the | | | duodenum were normal. | | | | | | Impression: - LA Grade C reflux esophagitis. - | | | Erythematous mucosa in the stomach. Could be portal hypertensive | | | gastropathy or gastritis. Normal duodenal bulb, first portion of | | | the duodenum, second portion of the duodenum, third portion of | | | the duodenum and fourth portion of the duodenum. - No | | | specimens collected.Recommendation: - Return patient to hospital | | | [facility] for ongoing care. - Repeat upper endoscopy in 3 months for | | | surveillance. US of GB if not already done. - Resume | | | previous diet. - Continue present medications. | | | Tran Vidal MD08/06/2019 3:02:25 | | | PMThis report has been signed electronically. Note Initiated On: | | | 08/06/2019 2:32 PMNumber of Addenda: 0 [facility] | | | Center | | | - Continue present medications. | | | | | | | | |Tran Vidal MD | | |08/06/2019 3:02:25 PM | | |This report has been signed electronically. | | | | | |Note Initiated On: 08/06/2019 2:32 PM | | |Number of Addenda: 0 | | | | | | [facility] | | + + + + +---------+ + + | Performing | Address | City/State/Zipcode | Phone Number | | Organization | | | | + +---------+ + + | [facility] | | | | + +---------+ + + EGD (08/06/2019 2:27 PM PDT) + + + | Narrative | Performed At | + + + | Tran Vidal MD 08/06/2019 2:56 PM [facility] | [facility] | | [facility] Procedure: EGD | [facility] | | Indications: Abdominal pain, nausea, vomiting, early satiety. | | | He received Lovenox today. Consent: The benefits, risks | | | (bleeding, perforation, infection and reaction to medication), and | | | alternatives to the procedure were discussed and informed consent | | | obtained prior to and immediately before the procedure. Prior to | | | the start of procedure a timeout was performed to verify patient's | | | name and date, the procedure to be performed and the provider | | | performing the procedure. Monitoring: Continuous cardiac | | | monitoring, pulse, pulse oximetry, and blood pressure were monitored | | | throughout the procedure under direct supervision of endoscopist. | | | Conscious sedation was provided by the nursing staff during | | | procedure under direct supervision and instruction of the | | | endoscopist. If MAC, deep sedation or anesthesia, provided by | | | anesthesia staff. Moderate Sedation Pre-sedation Assessment | | | completed. ASA Classification: Class 3 - A patient with severe | | | systemic disease that limits activity but is not incapacitating | | | Mallampati Classification: Mallampati Class 2 (upper half of | | | tonsil fossa) Medications: MAC Procedure: | | | The gastroscope was passed through the mouth under direct | | | visualization and was advanced with ease to the 4th portion of the | | | duodenum. Retroflex exam performed in the fundus. The scope was | | | withdrawn and the mucosa was carefully examined. The secretions were | | | suctioned during advancement and withdrawal of scope to prevent | | | aspiration. There were no apparent immediate complications. | | | Throat: Endotracheal tube in place. Esophagus: Class | | | C reflux esophagitis. Stomach: Mild to moderate portal | | | hypertensive gastropathy versus gastritis in the fundus and the | | | gastric body. Duodenum: Normal up to fourth part of duodenum. | | | No esophageal stricture. No esophageal varices. No gastric | | | varices. No gastric ulcer. No gastric cancer. No duodenal | | | ulcer. No duodenitis. Impression: As above. Class C | | | reflux esophagitis. Biopsies from the stomach and esophagus not | | | taken because patient was given Lovenox today. Complications: | | | None immediate. Tissue removed: No EBL: None. | | | Recommendations: Repeat EGD in 2-3 months to document | | | healing of the esophagitis and rule out Poon's esophagus. | | | Suggest to check ultrasound of the gallbladder if patient still has | | | a gallbladder. Continue Protonix twice daily. Rawel | | | Abbe Vidal MD 08/06/2019 This note may have | | | typographical errors. Please call with any questions or | | | clarifications. | | + + + + +---------+ + + | Performing | Address | City/State/Zipcode | Phone Number | | Organization | | | | + +---------+ + + | [facility] | | | | + +---------+ + + Drugs Of Abuse Screen, Urine (H) (08/06/2019 1:31 PM PDT) + + + + + + | Component | Value | Ref Range | Performed | Pathologist | | | | | At | Signature | + + + + + + | Amp/Methamp | NEGATIVEComment: | NEG | [facility] | | | hetamine, | Positive cutoff for AMP | | LABORATORY | | | Screen, | = 1000 ng/mL | | | | | Urine | | | | | + + + + + + | Barbiturate | NEGATIVEComment: | NEG | [facility] | | | s Screen, | Positive cutoff for KRISTINA | | LABORATORY | | | Urine | = 200 ng/mL | | | | + + + + + + | Benzodiazep | NEGATIVEComment: | NEG | [facility] | | | luis | Positive cutoff for | | LABORATORY | | | Screen, | BENZO = 200 ng/mL | | | | | Urine | | | | | + + + + + + | Cocaine | NEGATIVEComment: | NEG | [facility] | | | Metabolites | Positive cutoff for MARCELLO | | LABORATORY | | | , Ur | = 300 ng/mL | | | | + + + + + + | Methadone | NEGATIVEComment: | NEG | [facility] | | | Screen, | Positive cutoff for MTD | | LABORATORY | | | Urine | = 300 ng/mL | | | | + + + + + + | Opiates | POSITIVE (A)Comment: | NEG | [facility] | | | Screen, | Positive cutoff for OPI | | LABORATORY | | | Urine | = 300 ng/mL | | | | + + + + + + | Phencyclidi | NEGATIVEComment: | NEG | [facility] | | | ne Screen, | Positive cutoff for PCP | | LABORATORY | | | Urine | = 25 ng/mL | | | | + + + + + + | Tetrahydroc | NEGATIVEComment: | NEG | [facility] | | | annabinol(T | Positive cutoff for | | LABORATORY | | | HC) | THC = 50 ng/mLThe above | | | | | | are unconfirmed | | | | | | screening results. | | | | | | These results are to | | | | | | be used onlyfor medical | | | | | | (i.e.,treatment) | | | | | | purposes. Unconfirmed | | | | | | screening results must | | | | | | notbe used for | | | | | | non-medical purposes | | | | | | (e.g., employment | | | | | | testing, legal | | | | | | testing).Testing | | | | | | performed [place] [facility] [place] | | | | | | [address];[place] | | | | | | [address] | | | | + + + + + + + + | Specimen | + + | Urine - Urine | | specimen obtained by | | clean catch | | procedure (specimen) | + + + + + + + | Performing | Address | City/State/Zipcode | Phone Number | | Organization | | | | + + + + + | [facility] | [address] | [place] [address] | [phone] | + + + + + Potassium (08/05/2019 3:11 PM PDT)Only the most recent of 3 results within the time period is included. + + + + + + | Component | Value | Ref Range | Performed | Pathologist | | | | | At | Signature | + + + + + + | K | 3.0 (L)Comment: Testing | 3.5 - 4.9 | [facility] | | | | performed at [facility] [place] | mmol/L | LABORATORY | | | | [address];[place] | | | | | | [address] | | | | + + + + + + + + | Specimen | + + | Blood | + + + + + + + | Performing | Address | City/State/Zipcode | Phone Number | | Organization | | | | + + + + + | [facility] | [address] | [place] [address] | [phone] | + + + + + CT Chest Abdomen Pelvis w Contrast (08/05/2019 11:13 AM PDT) + + | Specimen | + + | | + + + + + | Impressions | Performed At | + + + | *Trace perisplenic free fluid in left subphrenic region, similar to | [facility] | | CT dated 07/31/2019. *Over distended urinary bladder. *Interval | | | resolution of previously visualized mild thickening of the colon as | | | compared to CT dated 07/31/2019. *Diffuse hepatic steatosis. | | | *Incidental findings as detailed above. Signed by: Jackelin | | | Tram Tsang Date/Time: 08/05/2019 11:38 AM | | + + + + + + | Narrative | Performed At | + + + | CT CHEST ABDOMEN AND PELVIS WITH CONTRAST CLINICAL | [facility] | | INFORMATION: Unexplained left side pain from the abdominal area to | | | left chest. recent CT abdomen showing colitis. COMPARISON: CT | | | ABDOMEN PELVIS W CONTRAST (07/31/2019); PROCEDURE: Axial images | | | through the chest, abdomen and pelvis after the administration of 100 | | | ml omnipaque 350 intravenous contrast. Multiplanar reconstructions. | | | At least one of the following CT dose optimization techniques were | | | used: Automated exposure control; Adjustment of mA and/or kV | | | according to patient size; Use of iterative reconstruction technique. | | | FINDINGS: CHEST Lungs, Pleura and Airways: No significant | | | pulmonary abnormality. No airway narrowing or obstruction. No pleural | | | effusion or pneumothorax. Mediastinum: No significant pericardial, | | | great vessel or esophageal abnormality. No mediastinal mass. Lymph | | | Nodes: No adenopathy. ABDOMEN Liver and Biliary: No gallbladder | | | or biliary abnormality. Diffuse hepatic steatosis. Pancreas, | | | Spleen and Adrenals: No pancreatitis or pancreatic mass. No | | | splenomegaly, splenic mass or splenic hemorrhage. No significant | | | adrenal abnormality. Kidneys: No hydronephrosis, calculus or solid | | | renal mass. ABDOMEN AND PELVIS Bowel: No small bowel or colonic | | | dilation or adjacent inflammation. No appendiceal dilation or | | | inflammation. Vessels: No significant abnormality in the aorta or its | | | proximal branches. Accessory left renal artery. No significant | | | abnormality in the portal veins, mesenteric veins or systemic veins. | | | Lymph Nodes: No adenopathy. Peritoneum and Retroperitoneum: Trace | | | perisplenic free in left subphrenic region, image 171/series 5. No | | | pneumoperitoneum.. No significant retroperitoneal abnormality. | | | PELVIS Genitourinary: The urinary bladder is over distended. No | | | urinary bladder stone. No pelvic masses. BODY WALL Soft | | | Tissues: Small locules of subcutaneous fat in ventral abdominal wall, | | | image 285/series 4, probably related to subcutaneous injections.. | | | Small fat containing right inguinal hernia. Bones: No acute fracture | | | or vertebral end plate destruction. Subtle sclerotic lesion in T9 | | | vertebra, nonspecific, possible hemangioma, similar to prior CT. | | | Thoracolumbar scoliosis, probably positional. Grade 1 | | | retrolisthesis of L5 on S1. Partial bony bridging across both | | | sacroiliac joints. | | + + + + + | Procedure Note | + + | Tobias, Rad Results In - 08/05/2019 11:42 AM PDT | | CT CHEST ABDOMEN AND PELVIS WITH CONTRAST | | | | CLINICAL INFORMATION: | | Unexplained left side pain from the abdominal area to left chest. | | recent CT abdomen showing colitis. | | | | COMPARISON: | | CT ABDOMEN PELVIS W CONTRAST (07/31/2019); | | | | PROCEDURE: | | Axial images through the chest, abdomen and pelvis after the | | administration of 100 ml omnipaque 350 intravenous contrast. | | Multiplanar reconstructions. | | | | At least one of the following CT dose optimization techniques were | | used: Automated exposure control; Adjustment of mA and/or kV according | | to patient size; Use of iterative reconstruction technique. | | | | FINDINGS: | | CHEST | | Lungs, Pleura and Airways: No significant pulmonary abnormality. No | | airway narrowing or obstruction. No pleural effusion or pneumothorax. | | Mediastinum: No significant pericardial, great vessel or esophageal | | abnormality. No mediastinal mass. | | Lymph Nodes: No adenopathy. | | | | ABDOMEN | | Liver and Biliary: No gallbladder or biliary abnormality. Diffuse | | hepatic steatosis. | | Pancreas, Spleen and Adrenals: No pancreatitis or pancreatic mass. No | | splenomegaly, splenic mass or splenic hemorrhage. No significant | | adrenal abnormality. | | Kidneys: No hydronephrosis, calculus or solid renal mass. | | | | ABDOMEN AND PELVIS | | Bowel: No small bowel or colonic dilation or adjacent inflammation. No | | appendiceal dilation or inflammation. | | Vessels: No significant abnormality in the aorta or its proximal | | branches. Accessory left renal artery. No significant abnormality in | | the portal veins, mesenteric veins or systemic veins. | | Lymph Nodes: No adenopathy. | | Peritoneum and Retroperitoneum: Trace perisplenic free in left | | subphrenic region, image 171/series 5. No pneumoperitoneum.. No | | significant retroperitoneal abnormality. | | | | PELVIS | | Genitourinary: The urinary bladder is over distended. No urinary | | bladder stone. No pelvic masses. | | | | BODY WALL | | Soft Tissues: Small locules of subcutaneous fat in ventral abdominal | | wall, image 285/series 4, probably related to subcutaneous injections.. | | Small fat containing right inguinal hernia. | | Bones: No acute fracture or vertebral end plate destruction. Subtle | | sclerotic lesion in T9 vertebra, nonspecific, possible hemangioma, | | similar to prior CT. Thoracolumbar scoliosis, probably positional. | | Grade 1 retrolisthesis of L5 on S1. Partial bony bridging across both | | sacroiliac joints. | | | | IMPRESSION: | | *Trace perisplenic free fluid in left subphrenic region, similar to CT | | dated 07/31/2019. | | *Over distended urinary bladder. | | *Interval resolution of previously visualized mild thickening of the | | colon as compared to CT dated 07/31/2019. | | *Diffuse hepatic steatosis. | | *Incidental findings as detailed above. | | | | | | | | Signed by: Trinh Benítez, Tram | | Sign Date/Time: 08/05/2019 11:38 AM | + + + +---------+ + + | Performing | Address | City/State/Zipcode | Phone Number | | Organization | | | | + +---------+ + + | [facility] | | | | + +---------+ + + Magnesium (08/04/2019 5:35 AM PDT)Only the most recent of 6 results within the time period is included. + + + + + + | Component | Value | Ref Range | Performed | Pathologist | | | | | At | Signature | + + + + + + | Magnesium | 2.3Comment: Testing | 1.7 - 2.4 mg/dL | [facility] | | | | performed at [facility], [address] | | LABORATORY | | | | [facility], | | | | | | [place] [address] | | | | + + + + + + + + | Specimen | + + | Blood | + + + + + + + | Performing | Address | City/State/Zipcode | Phone Number | | Organization | | | | + + + + + | [facility] | [address] | [place] [address] | [phone] | + + + + + Comprehensive Metabolic Panel (08/04/2019 5:35 AM PDT)Only the most recent of 4 results wi thin the time period is included. + + + + + + | Component | Value | Ref Range | Performed | Pathologist | | | | | At | Signature | + + + + + + | Na | 133 (L) | 135 - 145 | [facility] | | | | | mmol/L | LABORATORY | | + + + + + + | K | 2.7 (LL)Comment: RESULT | 3.5 - 4.9 | [facility] | | | | READ BACK BY:ONEIDA Richardson ON | mmol/L | LABORATORY | | | | [place] [facility] [place] 08/04/[place] | | | | | | @ 0648. JR | | | | | | | | | | + + + + + + | Cl | 95 (L) | 99 - 109 mmol/L | [facility] | | | | | | LABORATORY | | + + + + + + | CO2 | 24 | 23 - 32 mmol/L | [facility] | | | | | | LABORATORY | | + + + + + + | Anion Gap | 17 | 5 - 20 mmol/L | [facility] | | | | | | LABORATORY | | + + + + + + | Glucose | 199 (H) | 65 - 99 mg/dL | [facility] | | | | | | LABORATORY | | + + + + + + | BUN | 14 | 8 - 25 mg/dL | [facility] | | | | | | LABORATORY | | + + + + + + | Creatinine | 0.7 | 0.70 - 1.30 | [facility] | | | | | mg/dL | LABORATORY | | + + + + + + | BUN/Creatin | 20 | | [facility] | | | ine Ratio | | | LABORATORY | | + + + + + + | Calcium | 8.3 (L) | 8.5 - 10.5 | [facility] | | | | | mg/dL | LABORATORY | | + + + + + + | Protein, | 7.2 | 6.3 - 8.2 g/dL | [facility] | | | Total | | | LABORATORY | | + + + + + + | Albumin | 3.3 (L) | 3.6 - 5.0 g/dL | [facility] | | | | | | LABORATORY | | + + + + + + | Globulin | 3.9 | 1.3 - 4.9 g/dL | [facility] | | | | | | LABORATORY | | + + + + + + | A/G Ratio | 0.8 (L) | 1.0 - 2.4 | [facility] | | | | | | LABORATORY | | + + + + + + | BILIRUBIN, | 1.4 | 0.1 - 1.5 mg/dL | [facility] | | | TOTAL | | | LABORATORY | | + + + + + + | ALK PHOS | 75 | 35 - 115 U/L | [facility] | | | | | | LABORATORY | | + + + + + + | AST | 16 | 10 - 45 U/L | [facility] | | | | | | LABORATORY | | + + + + + + | ALT | 46 | 10 - 65 U/L | [facility] | | | | | | LABORATORY | | + + + + + + | Estimated | >60Comment: GFR <60: | >60 | [facility] | | | GFR | CHRONIC KIDNEY DISEASE, | mL/min/1.73m2 | LABORATORY | | | | IF FOUND OVER A 3 MONTH | | | | | | PERIOD.GFR <15: KIDNEY | | | | | | FAILURE.FOR | | | | | | AMERICANS, MULTIPLY THE | | | | | | CALCULATED GFR BY | | | | | | 1.210.This eGFR is | | | | | | calculated using the | | | | | | MDRD [facility] traceable | | | | | | equation.Testing | | | | | | performed at [facility], [address] | | | | | | [facility], | | | | | | [place] [address] | | | | + + + + + + + + | Specimen | + + | Blood | + + + + + + + | Performing | Address | City/State/Zipcode | Phone Number | | Organization | | | | + + + + + | [facility] | [address] | [place] [address] | [phone] | + + + + + Hemoglobin A1C (08/01/2019 7:46 AM PDT) + + + + + + | Component | Value | Ref Range | Performed | Pathologist | | | | | At | Signature | + + + + + + | Hemoglobin | 17.0 (H)Comment: HbA1c | 4.0 - 6.0 % | [facility] | | | A1c | method is certified by | | LABORATORY | | | | NGSP and traceable to | | | | | | the DCCT reference | | | | | | method.ADA guidelines | | | | | | indicate: | | | | | | Prediabetes: 5.7 - 6.4 | | | | | | Diabetes: >6.4 | | | | | | Glycemic control for | | | | | | adults with diabetes: | | | | | | <7.0 | | | | + + + + + + | Estimated | 441 (H)Comment: | <154 mg/dL | [facility] | | | Average | Estimated Average | | LABORATORY | | | Glucose | Glucose calculated from | | | | | | hemoglobin A1c by use of | | | | | | the ADArecommended | | | | | | formula.Testing | | | | | | performed at [facility], [address] | | | | | [facility], | | | | | | [place] [address] | | | | + + + + + + + + | Specimen | + + | Blood | + + + + + + + | Performing | Address | City/State/Zipcode | Phone Number | | Organization | | | | + + + + + | [facility] | [address] | [place] [address] | [phone] | + + + + + Urinalysis With Microscopic (08/01/2019 5:43 AM PDT) + + + + + + | Component | Value | Ref Range | Performed | Pathologist | | | | | At | Signature | + + + + + + | Color, UA | YELLOW | | [facility] | | | | | | LABORATORY | | + + + + + + | Clarity, UA | CLEAR | | [facility] | | | | | | LABORATORY | | + + + + + + | Specific | 1.044 (H) | 1.002 - 1.030 | [facility] | | | [place], | | | LABORATORY | | | Urine | | | | | + + + + + + | Leukocyte | NEGATIVE | NEG | [facility] | | | esterase, | | | LABORATORY | | | UA | | | | | + + + + + + | Nitrite, UA | NEGATIVE | NEG | [facility] | | | | | | LABORATORY | | + + + + + + | Urobilinoge | NORMAL | <1.6 mg/dL | [facility] | | | n, Ur | | | LABORATORY | | + + + + + + | Protein, | NEGATIVE | NEG mg/dL | [facility] | | | Urine | | | LABORATORY | | | (mg/dL) | | | | | + + + + + + | pH, Urine | 5.0 | 5.0 - 8.0 | [facility] | | | | | | LABORATORY | | + + + + + + | Blood, UA | SMALL (A) | NEG | [facility] | | | | | | LABORATORY | | + + + + + + | Ketones, UA | 80 (A) | NEG mg/dL | [facility] | | | | | | LABORATORY | | + + + + + + | Bilirubin, | NEGATIVE | NEG | [facility] | | | UA | | | LABORATORY | | + + + + + + | Glucose, Ur | >500 (A) | NEG mg/dL | [facility] | | | | | | LABORATORY | | + + + + + + | WBC UA | 0-2 | 0 - 5 /hpf | [facility] | | | | | | LABORATORY | | + + + + + + | Red Blood | 0-2 | 0 - 2 /hpf | [facility] | | | Cells, | | | LABORATORY | | | Urine | | | | | + + + + + + | Squamous | 16-25 | /lpf | [facility] | | | Epithelial | | | LABORATORY | | | Cells, | | | | | | Urine | | | | | + + + + + + | Bacteria, | NONE SEEN | NONE | [facility] | | | Urine | | | LABORATORY | | + + + + + + | Mucus, | 1+Comment: Testing | | [facility] | | | Urine | performed at [facility] [place] | LAB[facility]ATORY | | | | [address];[place], [place] | | | | | | [address] | | | | + + + + + + + + | Specimen | + + | Urine - Urine | | specimen (specimen) | + + + + + + + | Performing | Address | City/State/Zipcode | Phone Number | | Organization | | | | + + + + + | [facility] | [address] | [place] [address] | [phone] | + + + + + CT Abdomen Pelvis w Contrast (07/31/2019 10:25 PM PDT) + + | Specimen | + + | | + + + + + | Impressions | Performed At | + + + | 1. Mild colitis of the splenic flexure and descending colon. 2. | [facility] | | Hepatic steatosis. 3. Marked distention of the urinary bladder. No | | | pelvic mass. Signed by: Trinh Melendez, Cyn Su | | | Date/Time: 07/31/2019 10:35 PM | | + + + + + + | Narrative | Performed At | + + + | CT ABDOMEN AND PELVIS WITH CONTRAST CLINICAL INFORMATION: | [facility] | | Left upper quadrant pain and nausea. COMPARISON: None | | | PROCEDURE: Axial images through the abdomen and pelvis after the | | | administration of 100 ml Omnipaque 350 intravenous contrast. | | | Multiplanar reconstructions. At least one of the following CT dose | | | optimization techniques were used: Automated exposure control; | | | Adjustment of mA and/or kV according to patient size; Use of | | | iterative reconstruction technique. FINDINGS: LUNG BASES: No | | | significant pulmonary abnormality. No pleural effusion or | | | pneumothorax. ABDOMEN Liver and Biliary: No gallbladder or | | | biliary abnormality. Hepatic steatosis. Pancreas, Spleen and | | | Adrenals: No pancreatitis or pancreatic mass. No splenomegaly, | | | splenic mass or splenic hemorrhage. No significant adrenal | | | abnormality. Kidneys: No hydronephrosis, calculus or solid renal | | | mass. ABDOMEN AND PELVIS Bowel: No small bowel dilation or | | | adjacent inflammation. No appendiceal dilation or inflammation. | | | Wall thickening of the splenic flexure and descending colon. | | | Vessels: No significant abnormality in the aorta or its proximal | | | branches. No significant abnormality in the portal veins, mesenteric | | | veins or systemic veins. Lymph Nodes: No adenopathy. Peritoneum and | | | Retroperitoneum: No ascites or free air. No significant | | | retroperitoneal abnormality. PELVIS Genitourinary: Marked | | | distention of the urinary bladder. No pelvic mass. BODY WALL | | | Soft Tissues: No bowel or inflamed fat containing hernia, mass or | | | hemorrhage. Bones: No acute fracture or vertebral end plate | | | destruction. No lytic or blastic lesion. | | + + + + + | Procedure Note | + + | Tobias, Rad Results In 07/31/2019 10:38 PM PDT | | CT ABDOMEN AND PELVIS WITH CONTRAST | | | | CLINICAL INFORMATION: | | Left upper quadrant pain and nausea. | | | | COMPARISON: | | None | | | | PROCEDURE: | | Axial images through the abdomen and pelvis after the administration of | | 100 ml Omnipaque 350 intravenous contrast. Multiplanar reconstructions. | | | | At least one of the following CT dose optimization techniques were | | used: Automated exposure control; Adjustment of mA and/or kV according | | to patient size; Use of iterative reconstruction technique. | | | | FINDINGS: | | LUNG BASES: No significant pulmonary abnormality. No pleural effusion | | or pneumothorax. | | | | ABDOMEN | | Liver and Biliary: No gallbladder or biliary abnormality. Hepatic | | steatosis. | | Pancreas, Spleen and Adrenals: No pancreatitis or pancreatic mass. No | | splenomegaly, splenic mass or splenic hemorrhage. No significant | | adrenal abnormality. | | Kidneys: No hydronephrosis, calculus or solid renal mass. | | | | ABDOMEN AND PELVIS | | Bowel: No small bowel dilation or adjacent inflammation. No appendiceal | | dilation or inflammation. Wall thickening of the splenic flexure and | | descending colon. | | Vessels: No significant abnormality in the aorta or its proximal | | branches. No significant abnormality in the portal veins, mesenteric | | veins or systemic veins. | | Lymph Nodes: No adenopathy. | | Peritoneum and Retroperitoneum: No ascites or free air. No significant | | retroperitoneal abnormality. | | | | PELVIS | | Genitourinary: Marked distention of the urinary bladder. No pelvic | | mass. | | | | BODY WALL | | Soft Tissues: No bowel or inflamed fat containing hernia, mass or | | hemorrhage. | | Bones: No acute fracture or vertebral end plate destruction. No lytic | | or blastic lesion. | | | | IMPRESSION: | | 1. Mild colitis of the splenic flexure and descending colon. | | 2. Hepatic steatosis. | | 3. Marked distention of the urinary bladder. No pelvic mass. | | | | | | | | Signed by: Trinh Melendez Julie | | Sign Date/Time: 07/31/2019 10:35 PM | + + + +---------+ + + | Performing | Address | City/State/[facility] | Phone Number | | Organization | | | | + +---------+ + + | [facility] | | | | + +---------+ + + Blood gas, Venous (07/31/2019 9:57 PM PDT) + + + + + + | Component | Value | Ref Range | Performed | Pathologist | | | | | At | Signature | + + + + + + | pH, Venous, | 7.180 (L)Comment: This | 7.310 - 7.410 | [facility] | | | POC | test was developed and | | LABORATORY | | | | its performance | | | | | | characteristics | | | | | | determined by[facility], it | | | | | | has not been cleared or | | | | | | approved by the [place] FDA. | | | | | | Clinicians should | | | | | | beadvised to consider a | | | | | | patient's signs, | | | | | | symptoms, history, and | | | | | | results of | | | | | | otherdiagnostic tests | | | | | | when interpreting | | | | | | results from these | | | | | | cartridges. | | | | + + + + + + | PCO2, | 33 (L) | 41 - 51 mmHG | [facility] | | | Venous, POC | | | LABORATORY | | + + + + + + | pO2, Venous | 47 (H) | 30 - 40 mmHG | [facility] | | | | | | LABORATORY | | + + + + + + | HCO3, | 12 (L) | 23 - 28 mmol/L | [facility] | | | Venous | | | LABORATORY | | + + + + + + | TCO2, POC | 13 (L) | 24 - 29 mEq/L | [facility] | | | | | | LABORATORY | | + + + + + + | POC Base | 16 (H) | 0.0 - 2.0 | [facility] | | | Deficit | | mmol/L | LABORATORY | | | mmol/L | | | | | + + + + + + | POC | 72.0 | 60 - 85 % | [facility] | | | [id number].BLDV.QN | | | LABORATORY | | | .(%) | | | | | + + + + + + | FiO2, POC | 21Comment: Testing | % | [facility] | | | | performed at [facility] [place] | LAB[address]AT[address] | | | [address];[place], [place] | | | | | | [address] | | | | + + + + + + + + | Specimen | + + | | + + + + + + + | Performing | Address | City/State/Zipcode | Phone Number | | Organization | | | | + + + + + | [facility] | [address] | [place] [address] | [phone] | + + + + + ECG 12 lead (07/31/2019 9:02 PM PDT) + + + + + + | Component | Value | Ref Range | Performed | Pathologist | | | | | At | Signature | + + + + + + | VENTRICULAR | 76 | BPM | [facility] | | | RATE EKG | | | | | + + + + + + | ATRIAL RATE | 76 | BPM | [facility] | | + + + + + + | P-R | 142 | ms | [facility] | | | INTERVAL | | | | | + + + + + + | QRS | 98 | ms | [facility] | | | DURATION | | | | | + + + + + + | Q-T | 442 | ms | [facility] | | | INTERVAL | | | | | + + + + + + | Q-T | 497 | ms | [facility] | | | INTERVAL | | | | | | (CORRECTED) | | | | | + + + + + + | P WAVE AXIS | 52 | degrees | [facility] | | + + + + + + | QRS AXIS | 67 | degrees | [facility] | | + + + + + + | T AXIS | 59 | degrees | [facility] | | + + + + + + | INTERPRETAT | Normal sinus | | [facility] | | | ION TEXT | rhythmProlonged | | | | | | QTAbnormal ECGNo | | | | | | previous ECGs | | | | | | availableThis ECG | | | | | | contains Unconfirmed | | | | | | Interpretation | | | | | | Statements. See ED | | | | | | Record for Physician | | | | | | Interpretation. | | | | | | Confirmed by MUSE READ | | | | | | ONLY, -COMPUTER ([id number]), | | | | | | photography editor ALEKSANDRA LOREDO | | | | | | ([id number]) on 08/01/2019 | | | | | | 1:06:52 AM | | | | + + + + + + + + | Specimen | + + | | + + + + + | Narrative | Performed At | + + + | | | + + + + +---------+ + + | Performing | Address | City/State/Zipcode | Phone Number | | Organization | | | | + +---------+ + + | [facility] | | | | + +---------+ + + Troponin I (07/31/2019 8:41 PM PDT) + + + + + + | Component | Value | Ref Range | Performed | Pathologist | | | | | At | Signature | + + + + + + | Troponin I | <0.006Comment: 0.04 | 0.00 - 0.04 | [facility] | | | | ng/mL or less | ng/mL | LABORATORY | | | | Negative, repeat | | | | | | testing in four to six | | | | | | hour ifclinically | | | | | | indicted0.05 to 0.77 | | | | | | ng/mL | | | | | | Suspicious for | | | | | | myocardial injury. | | | | | | Serial measurementsmay | | | | | | be necessary to confirm | | | | | | or exclude the diagnosis | | | | | | of acute | | | | | | coronarysyndrome. Repeat | | | | | | testing in four to six | | | | | | hours if indicated.0.78 | | | | | | or greater ng/mL | | | | | | Consistent with | | | | | | myocardial injury. | | | | | | Clinical andlaboratory | | | | | | correlation recommended. | | | | | | Testing performed at | | | | | | [facility] [place] | | | | | [address];[place] [address] | | | | + + + + + + + + | Specimen | + + | | + + + + + + + | Performing | Address | City/State/Zipcode | Phone Number | | Organization | | | | + + + + + | [facility] | [address] | [place] [address] | [phone] | + + + + + Ketones, Serum (07/31/2019 8:41 PM PDT) + + + + + + | Component | Value | Ref Range | Performed | Pathologist | | | | | At | Signature | + + + + + + | Ketones, | GEE (A)Comment: | NEG | [facility] | | | Blood | Testing performed at | | LABORATORY | | | | [facility] [place];[address];[place] [address] | | | | + + + + + + + + | Specimen | + + | | + + + + + + + | Performing | Address | City/State/Zipcode | Phone Number | | Organization | | | | + + + + + | [facility] | [address] | [place] [address] | [phone] | + + + + + Lipase (07/31/2019 8:41 PM PDT) + + + + + + | Component | Value | Ref Range | Performed | Pathologist | | | | | At | Signature | + + + + + + | Lipase | 41Comment: Testing | 12 - 53 U/L | [facility] | | | | performed at [facility] [place];[address] | LABORAT[address] | | | [address];[place] | | | | | | [address] | | | | + + + + + + + + | Specimen | + + | Blood | + + + + + + + | Performing | Address | City/State/Zipcode | Phone Number | | Organization | | | | + + + + + | [facility] | [address] | [place] [address] | [phone] | + + + + + from Last 3 Months Advance Directives + + + + + | Type | Date Recorded | Patient | Explanation | | | | Partnership Development Manager | | + + + + + | Power of | | | | | Caponizer | | | | + + + + + | Advance | 08/01/2019 10:14 | | | | Directive | AM | | | + + + + + + + + + + | Code Status | Date | Date | Comments | | | Activated | Inactivated | | + + + + + | Full Code | 07/31/2019 | 08/07/2019 | | | | 11:57 PM | 4:42 PM | | + + + + +
--- OUTSIDE RECORDS SUMMARY | ~2019-10-13 | XMS | Encounter Summary ---
Demographics + + + | Address | [address] | | | [place] [address] | + + + | Home Phone | | + + + | Preferred Language | Unknown | + + + | Marital Status | Single | + + + | Gnosticism Affiliation | Unknown | + + + | Race | Unknown | + + + | Ethnic Group | Unknown | + + + Author + + + | Author | [facility] | | | and [place] | + + + | Organization | [facility] | | | and [place] | + + + | Address | Unknown | + + + | Phone | Unavailable | + + + Support + + +---------+ + | Name | Relationship | Address | Phone | + + +---------+ + | aMriella Olguin | ECON | Unknown | | + + +---------+ + Care Team Providers + +------+ + | Care Computer Video Game Designer Name | Role | Phone | + +------+ + | No, Physician | PCP | Unavailable | + +------+ + Reason for Visit + + + | Reason | Comments | + + + | Emesis | x2 days | + + + | Nausea | | + + + | Abdominal Pain | | + + + Auth/Cert +--------+--------+ + + + + | [...] + + | 07/30/ | Hospital | [facility] | Dao De Jesus MD | Diabetic | | 2020 - | Encounter | [facility] | [address] | ketoacidosis without | | | | CARE FLOOR [address] | [place] [address] | coma associated | | 08/06/ | | [address] | [phone] | with type 2 diabetes | | 2020 | | [place], [place] | | mellitus (HCC) | | | | [phone] | Estiven Hauser MD [address] | (Primary Dx); Left | | | | [phone] | [address] | upper quadrant pain; | | | | | [place] [address] | Nausea and vomiting | | | | | [phone] | in adult; Diabetic | | | | | | ketoacidosis without | | | | | Pineda Pace MD | coma associated | | | | | [address] | with type 2 diabetes | | | | | [place] [address] | mellitus (HCC); | | | | | [phone] | Left upper quadrant | | | | | | pain; Nausea and | | | | | Dion Terrell MD | vomiting in adult | | | | | [address] | | | | | | [place] [address] | | | | | | [phone] | | | | | | | | +--------+ + + + + Social History + +-------+ +--------+------+ | Tobacco [...] + + documented as of this encounter Last Filed Vital Signs + + + [...] | | + + + + + documented in this encounter Discharge Summaries Cary Pryor RN - 08/07/2019 1:38 PM PDTPatient discharged home with family member (Elena gomez) via private vehicle. AVS, and prescriptions explained and given to patient. All perso nal belongings with patient. Used a medical interpretor to go over discharged instructions. Patient denied any questions. 1: 40 PM PDTDion Terrell MD - 08/07/2019 10:22 AM PDTFormatting of this note might be diffe rent from the original. Patient: Sacha Rodriguez : 1975 Date of Admission: 07/31/2019 Date of Discharge: 08/07/2019 Treatment Team: Tran Vidal MD Discharging Provider: Dion Terrell MD Discharge Diagnoses: Active Problems: Diabetic ketoacidosis without coma associated with type 2 diabetes mellitus HLD (hyperlipidemia) HTN (hypertension) Left upper quadrant pain Mild colitis, acute; splenic flexure and descending colon Nausea and vomiting in adult Procedures Performed: Procedure(s) (LRB): EGD (N/A) Chief Complaint: Emesis (x2 days); Nausea; and Abdominal Pain Hospital Course: Sacha Rodriguez is a 44m non compliant, with past medical history of DM2, HLD, HTN who presented with nausea/vomiting and abdominal pain. The patient has serum ketones and mars vated anion gap with elevated blood sugar. He was admitted for DKA. Hga1c >17. Ct ABDOMEN demonstrated IMPRESSION: 1. Mild colitis of the splenic flexure and descending colon. 2. Hepatic steatosis. 3. Marked distention of the urinary bladder. No pelvic mass. He was started on cipro and flagyl IV for possible colitis. The patient was treated for DKA and this resolved. He was evaluated by diabetes education a nd his insulin regimen was adjusted. Case management made him an appointment with a PCP for further care of his diabetes. The patient initially improved in terms of abdominal pain and was transitioned to PO cipro and flagyl. He then continously complained of left sided pain from the abdomen to the chest. The patient underwent multiple tests to try to illicit the etiology of the pain. Throughout all of this the patient appeared well, no distress, vitals stable, but complained of the pa in. A repeat CT chest/abdomen/pelvis was performed and demonstrated nearly resolved colitis. Di stention of the bladder was again noted, however patient was producing good amounts of urine and kidney function was stable. Bladder scan did not demonstrate retention. Due to ongoing pain, Gastroenterology was consulted and EGD was performed which demonstrate d Impression: - LA Grade C reflux esophagitis. - Erythematous mucosa in the stomach. Could be portal hypertensive gastropathy or gastritis. Normal duodenal bulb, first portion of the duodenum, second portion of the duodenum, third portion of the duodenum and fourth portion of the duodenum. - No specimens collected. The patient was continued on PPI. Since no etiology of the pain was found a US abdomen was done which demonstrated IMPRESSION: Sludge seen in the gallbladder lumen without wall thickening or pericholecystic fluid to suggest cholecystitis. The patient symptoms were not consistent with galbladder pain. The patient was treated with pain control and remained stable. He was stable for discharge and will follow with his pcp on 08/09/2019 Potassium replaced prior to discharge. Discharge Exam and Data: Vital Signs: BP 138/87 | Pulse 76 | Temp 36.6 C (97.9 F) (Oral) | Resp 18 | Ht 1.6 m (5' 3") | Wt 58.8 kg (129 lb 9.6 oz) | SpO2 97% | BMI 22.96 kg/m I&O Last 3 Shifts: 08/04 1901 - 08/06 0700 In: 918 [P.O.:418; I.V.:500] Out: - Physical Examination: Constitutional: Alert and oriented to person, place, and time. Appears well-developed and w ell-nourished. HEENT: Neck supple, no JVD, non icteric sclera. Cardiovascular: Normal rate, regular rhythm, normal heart sounds with S1 and S2. Exam revea ls no appreciated gallop or friction rub. No murmur heard. Pulmonary/Chest: Effort normal and breath sounds normal. No stridor. No respiratory distres s. no wheezes. no rales. exhibits no tenderness. Abdominal: Soft. Bowel sounds are normal. There is no tenderness on palpation. There is no rebound and no guarding. Extremeties/Musculoskeletal: Normal range of motion.exhibits no tenderness. exhibits no ed marcel. Neurological: Alert and oriented to person, place, and time. No cranial nerve deficit. Ex hibits normal muscle tone. Skin: Skin is warm and dry. No rash noted. No erythema. No pallor. Psychiatric: Has a normal mood and affect given situation. Behavior is normal. Recent Labs Recent Labs Lab 08/07/19 04208/06/19 0423 08/05/19 0437 WBC 7.76 6.63 5.15 HGB 12.8* 13.4 12.8* HCT 36.7* 38.9* 37.3* PLT 313 304 283 Recent Labs Lab 08/07/19 04208/06/19 0423 08/05/19 1511 08/05/19 0437 NA 140 139 -- 137 K 3.1* 3.4* 3.0* 3.5 CL 99 99 -- 101 CO2 29 25 -- 28 BUN 8 10 -- 15 CALCIUM 9.0 9.1 -- 8.5 No results for input(s): INR in the last 168 hours. Microbiology Results (Last 14 Days by Collected Date with Culture/Sensitivity) Procedure Component Value Units Date/Time Clostridium difficile A and B EIA [[id number]] Order Status: Canceled Lab Status: No result Specimen: Stool Recent Radiology Results Recent Results (from the past 360 hour(s)) CT Abdomen Pelvis w Contrast Narrative CT ABDOMEN AND PELVIS WITH CONTRAST CLINICAL INFORMATION: Left upper quadrant pain and nausea. COMPARISON: None PROCEDURE: Axial images through the abdomen and pelvis after the administration of 100 ml Omnipaque 350 intravenous contrast. Multiplanar reconstructions. At least one of the following CT dose optimization techniques were used: Automated exposure control; Adjustment of mA and/or kV according to patient size; Use of iterative reconstruction technique. FINDINGS: LUNG BASES: No significant pulmonary abnormality. No pleural effusion or pneumothorax. ABDOMEN Liver and Biliary: No gallbladder or biliary abnormality. Hepatic steatosis. Pancreas, Spleen and Adrenals: No pancreatitis or pancreatic mass. No splenomegaly, splenic mass or splenic hemorrhage. No significant adrenal abnormality. Kidneys: No hydronephrosis, calculus or solid renal mass. ABDOMEN AND PELVIS Bowel: No small bowel dilation or adjacent inflammation. No appendiceal dilation or inflammation. Wall thickening of the splenic flexure and descending colon. Vessels: No significant abnormality in the aorta or its proximal branches. No significant abnormality in the portal veins, mesenteric veins or systemic veins. Lymph Nodes: No adenopathy. Peritoneum and Retroperitoneum: No ascites or free air. No significant retroperitoneal abnormality. PELVIS Genitourinary: Marked distention of the urinary bladder. No pelvic mass. BODY WALL Soft Tissues: No bowel or inflamed fat containing hernia, mass or hemorrhage. Bones: No acute fracture or vertebral end plate destruction. No lytic or blastic lesion. Impression 1. Mild colitis of the splenic flexure and descending colon. 2. Hepatic steatosis. 3. Marked distention of the urinary bladder. No pelvic mass. Signed by: Trinh Melendez Julie Sign Date/Time: 07/31/2019 10:[address] Chest Abdomen Pelvis w Contrast Narrative CT CHEST ABDOMEN AND PELVIS WITH CONTRAST CLINICAL INFORMATION: Unexplained left side pain from the abdominal area to left chest. recent CT abdomen showing colitis. COMPARISON: CT ABDOMEN PELVIS W CONTRAST (07/31/2019); PROCEDURE: Axial images through the chest, abdomen and pelvis after the administration of 100 ml omnipaque 350 intravenous contrast. Multiplanar reconstructions. At least one of the following CT dose optimization techniques were used: Automated exposure control; Adjustment of mA and/or kV according to patient size; Use of iterative reconstruction technique. FINDINGS: CHEST Lungs, Pleura and Airways: No significant pulmonary abnormality. No airway narrowing or obstruction. No pleural effusion or pneumothorax. Mediastinum: No significant pericardial, great vessel or esophageal abnormality. No mediastinal mass. Lymph Nodes: No adenopathy. ABDOMEN Liver and Biliary: No gallbladder or biliary abnormality. Diffuse hepatic steatosis. Pancreas, Spleen and Adrenals: No pancreatitis or pancreatic mass. No splenomegaly, splenic mass or splenic hemorrhage. No significant adrenal abnormality. Kidneys: No hydronephrosis, calculus or solid renal mass. ABDOMEN AND PELVIS Bowel: No small bowel or colonic dilation or adjacent inflammation. No appendiceal dilation or inflammation. Vessels: No significant abnormality in the aorta or its proximal branches. Accessory left renal artery. No significant abnormality in the portal veins, mesenteric veins or systemic veins. Lymph Nodes: No adenopathy. Peritoneum and Retroperitoneum: Trace perisplenic free in left subphrenic region, image 171/series 5. No pneumoperitoneum.. No significant retroperitoneal abnormality. PELVIS Genitourinary: The urinary bladder is over distended. No urinary bladder stone. No pelvic masses. BODY WALL Soft Tissues: Small locules of subcutaneous fat in ventral abdominal wall, image 285/series 4, probably related to subcutaneous injections.. Small fat containing right inguinal hernia. Bones: No acute fracture or vertebral end plate destruction. Subtle sclerotic lesion in T9 vertebra, nonspecific, possible hemangioma, similar to prior CT. Thoracolumbar scoliosis, probably positional. Grade 1 retrolisthesis of L5 on S1. Partial bony bridging across both sacroiliac joints. Impression *Trace perisplenic free fluid in left subphrenic region, similar to CT dated 07/31/2019. *Over distended urinary bladder. *Interval resolution of previously visualized mild thickening of the colon as compared to CT dated 07/31/2019. *Diffuse hepatic steatosis. *Incidental findings as detailed above. Signed by: Trinh Benítez Pushpender Sign Date/Time: 08/05/2019 11:38 AM US Abdomen Limited Narrative ULTRASOUND ABDOMEN, LIMITED CLINICAL INFORMATION: Unexplained abdominal pain. COMPARISON: CT CHEST ABDOMEN PELVIS W CONTRAST (08/05/2019); CT ABDOMEN PELVIS W CONTRAST (07/31/2019); PROCEDURE: Evaluation of the gallbladder, if present, common bile duct, liver, and right kidney. FINDINGS: Pancreas: Poorly visualized. Liver: The visualized hepatic parenchyma is normal. The intrahepatic bile ducts do not appear to be enlarged. The portal and hepatic veins demonstrate normal direction of flow. Gallbladder/Bile Duct: Gallbladder shows sludge in the lumen. Wall thickness measures 2.9 mm. No pericholecystic fluid is seen. Common bile duct 8.0 mm. Sonographic Gallo sign is negative. Right kidney: 12.5 x 5.2 x 4.3 cm. No solid renal mass, hydronephrosis or definitive calculi. Normal blood flow noted to the right renal hilum. IVC normal. No ascites. Impression Sludge seen in the gallbladder lumen without wall thickening or pericholecystic fluid to suggest cholecystitis. Signed by: Jimmy Goldberg Edward Sign Date/Time: 08/06/2019 7:10 PM Outstanding Issues: To follow with pcp Discharge Information: Follow up: [address] [phone] Go on 08/09/2019 you have been scheduled for a follow up on Tuesday 08/08 at 3:20 . Usted tiene maggie kelvin para el 08/08 a las 3:20 Discharge Medications New Medications Details insulin glargine 100 units/mL injection (pen) Inject 15 Units under the skin every morning. aka: LANTUS SOLOSTAR Start: August 08, 2019 insulin lispro 100 units/mL injection (vial) Inject 0-12 Units under the skin 4 times daily (with meals and nightly). --- BG < 150: none BG 150-200: 2 units BG 201-250: 4 units BG 251-300: 6 units BG 301-350: 8 units BG 351-400: 10 units BG > 400: 12 units and call provider aka: humaLOG oxyCODONE 5 mg tablet Take 1 tablet by mouth every 6 hours as needed for Pain. aka: ROXICODONE pantoprazole 40 mg tablet Take 1 tablet by mouth 2 times daily for 30 days. aka: PROTONIX potassium chloride 20 mEq ER tablet Take 2 tablets by mouth Daily (with dinner) for 14 doses. aka: Klor-Con M20 Changed Medications Details lisinopril 40 MG tablet Take 1 tablet by mouth Daily. What changed: medication strength how much to take aka: PRINIVIL,ZESTRIL Start: August 08, 2019 Unchanged Medications Details atorvaSTATin 20 mg tablet Take 20 mg by mouth nightly. aka: LIPITOR Discontinued Medications glipiZIDE 10 mg ER tablet aka: GLUCOTROL XL metFORMIN 500 mg tablet aka: GLUCOPHAGE Disposition: home Condition: Stable Code Status: Full Code Discharge took 50 minutes, to include final examination, discussion of admission, and prepa ration of prescriptions, instructions for on-going care, follow-up and documentation of disc harge summary. Dion Terrell MD 10:22 AM documented in this encounter Discharge Instructions Instructions Dion Terrell MD - 08/07/2019Follow with your PCP as scheduled for refills and management of diabetes medication, high blood pressure, abdominal pain documented in this encounter Medications at Time of Discharge + + + +---------+ + + | Medication | Sig | Dispensed | Refills | Start | End Date | | | | | | Date | | + + + +---------+ + + | atorvaSTATin | Take 20 mg by mouth | | 0 | | | | (LIPITOR) 20 mg | nightly. | | | | | | tablet | | | | | | + + + +---------+ + + | insulin glargine | Inject 15 Units | 2 pen | 1 | 08/08/19 | | | (LANTUS SOLOSTAR) | under the skin every | | | 20 | | | 100 units/mL | morning. | | | | | | injection (pen) | | | | | | + + + +---------+ + + | insulin lispro | Inject 0-12 Units | 10 mL | 1 | 08/07/19 | | | (HUMALOG) 100 | under the skin 4 | | | 20 | | | units/mL injection | times daily (with | | | | | | (vial) | meals [...] call provider | | | | | + + + +---------+ + + | lisinopril | Take 1 tablet by | 30 | 0 | 08/08/19 | | | (PRINIVIL,ZESTRIL) | mouth Daily. | tablet | | 20 | | | 40 MG tablet | | | | | | + + + +---------+ + + | oxyCODONE | Take 1 tablet by | 15 | 0 | 08/07/19 | | | (ROXICODONE) 5 mg | mouth every 6 hours | tablet | | 20 | | | tablet | as needed for Pain. | | | | | + + + +---------+ + + | pantoprazole | Take 1 tablet by | 60 | 1 | 08/07/19 | | | (PROTONIX) 40 mg | mouth 2 times daily | tablet | | 20 | 0 | | tablet | for 30 days. | | | | | + + + +---------+ + + | potassium chloride | Take 2 tablets by | 28 | 0 | 08/07/19 | | | (KLOR-CON M20) 20 | mouth Daily (with | tablet | | 20 | 0 | | mEq ER tablet | dinner) for 14 | | | | | | | doses. | | | | | + + + +---------+ + + documented as of this encounter Progress Luann Vela RN - 08/07/2019 6:17 AM PDTNo acute changes since shift assessment. Vital s igns stable. Medicated for hypertension x 1 with resolution. Medicated for pain x 4 with lit tle to no improvement per patient and medicated for nausea with PRN antiemetics x 2 (see MAR ). Patient appears restless and frustrated. End of shift review and 24 hour chart check complete Luann Underwood RN -- Problem: Adult Inpatient Plan of Care Goal: Plan of Care Review Outcome: Ongoing, progressing Note: Plan of care reviewed with patient. Pain and nausea management currently. All questions and concerns addressed. Goal: Absence of Hospital-Acquired Illness or Injury Outcome: Ongoing, progressing Intervention: Prevent VTE (venous thromboembolism) Note: No signs or symptom of hospital-acquired VTE. Will continue to monitor. Goal: Optimal Comfort and Wellbeing Outcome: Ongoing, progressing Intervention: Provide Person-Centered Care Flowsheets (Taken 08/06/20191939) Trust Relationship/Rapport: care explained;choices provided;emotional support provided;empa thic listening provided;questions answered;questions encouraged;reassurance provided;thought s/feelings acknowledged Note: Encouraged patient to verbalize feelings and concerns. Patient is involved in decision leelee ng process with his care. Assisted patient to identify his strengths and reinforced positive coping mechanisms. Problem: Pain Acute Goal: Optimal Pain Control Outcome: Ongoing, progressing Intervention: Prevent or Manage Pain Flowsheets (Taken 08/06/20191939) Sensory Stimulation Regulation: care clustered;lighting decreased;quiet environment promote d Sleep/Rest Enhancement: awakenings minimized;consistent schedule promoted;noise level reduc ed;regular sleep/rest pattern promoted;relaxation techniques promoted Note: Patient is able to verbalize and rate pain on a numeric scale from 0 to 10. Non-pharmacolog ic pain interventions (ex: distraction, music therapy) encouraged. Pain is re-assessed 30 mi nutes to one hour after pain management intervention (as needed). Receiving Roxicodone 10 mg (minimal pain relief) and Ultram 50 mg. Problem: Nausea and Vomiting Goal: Fluid and Electrolyte Balance Outcome: Ongoing, progressing Intervention: Prevent and Manage Nausea and Vomiting Flowsheets (Taken 08/06/20191939) Environmental Support: calm environment promoted;personal routine supported Note: No episodes of emesis this shift. Receiving scheduled Reglan. PRN Reglan and Zofran also av ailable. Dion Hsieh MD - 08/06/2019 10:19 AM PDT [facility] Service: Hospitalist Progress Note Pt: Sacha Rodriguez AGE/SEX: 44 y.o. male ROOM: 4440/4440-01 : 1975 PCP: No Physician on file ADMIT DATE: 07/31/2019 TODAY'S DATE: 08/06/2019 Hospital Day/Hospital Course: LOS: 6 days 44m non compliant, with past medical history of DM2, HLD, HTN who presented with nausea/vom iting and abdominal pain. The patient has serum ketones and elevated anion gap with elevated blood sugar. He was admitted for DKA. He has improved. Hga1c >17. Ct ABDOMEN demonstrated IMPRESSION: 1. Mild colitis of the splenic flexure and descending colon. 2. Hepatic steatosis. 3. Marked distention of the urinary bladder. No pelvic mass. He has been on cipro and flagyl IV SUBJECTIVE: Patient seen and examined. Sitting on the bench. He states he is having pain in the left up per and lower quadrants which remains unchanged. It is not related to food. He has been rece iving narcotics. States he is having nausea. No vomiting is noted. Is having daily bowel mo vements. Denies diarrhea. No shortness of breath. Had no orthopnea or PND. No dizziness or lightheadedness. Scheduled Medications: atorvaSTATin 20 mg Oral Nightly ciprofloxacin 500 mg Oral BID enoxaparin 40 mg Subcutaneous Daily insulin glargine 15 Units Subcutaneous QAM insulin lispro 0-12 Units Subcutaneous 4x Daily WC and HS [START ON 08/07/2019] lisinopril 40 mg Oral Daily metoclopramide 10 mg Intravenous 4 times per day metroNIDAZOLE 500 mg Oral 3 times per day potassium chloride 40 mEq Oral Daily with dinner Continuous Infusions dextrose 10% dextrose 10% sodium chloride 0.9% PRN Medications acetaminophen, Hypoglycemia Management AND POCT Glucose AND dextrose AND dextro se 10%, dextrose 10%, dextrose, fentaNYL (PF), insulin regular, ondansetron, oxyCODONE, Pota ssium replacement - NON ICU AND Potassium AND potassium chloride AND potassium c hloride AND potassium chloride IVPB (other volumes & diluents) AND potassium chlorid e IVPB (other volumes & diluents), sodium chloride 0.9%, traMADol Allergy: No Known Allergies OBJECTIVE: Vitals: Patient Vitals for the past 24 hrs: BP Temp Temp src Pulse Resp SpO2 08/06/19 0930 172/89 08/06/19 0704 165/87 36.7 C (98 F) Oral 77 16 97 % 08/06/19 0342 (!) 176/99 36.9 C (98.5 F) Oral 79 16 99 % 08/05/19 2337 (!) 158/97 36.9 C (98.4 F) Oral 77 15 97 % 08/05/19 1955 137/89 36.9 C (98.4 F) Oral 74 16 98 % 08/05/19 1517 125/78 37 C (98.6 F) Oral 77 15 96 % 08/05/19 1333 134/81 36.8 C (98.2 F) Oral 80 16 99 % I&O Detailed Table: No intake or output data in the 24 hours ending 08/06/19 1019 Patient Vitals for the past 96 hrs: Weight 08/03/19 0301 62.6 kg (138 lb) Physical Examination: Constitutional: Awake, interactive. Sitting on bench. HEENT: Neck supple, no JVD, non icteric sclera. Cardiovascular: Normal rate, regular rhythm. S1/S2. Exam reveals no appreciated gallop or f riction rub. No murmur heard. Pulmonary/Chest: Effort normal and breath sounds normal. No stridor. No respiratory distres s. no wheezes. no rales. exhibits no tenderness on palpation. Abdominal: Soft. Bowel sounds are normal. exhibits no distension and no mass. There is mild tenderness on palpation of the left abdomen. There is no rebound and no guarding. Extremeties/Musculoskeletal: Normal range of motion for patient. exhibits no tenderness. e xhibits no edema. Neurological: Alert and oriented to person, place, and time. No cranial nerve deficit ad reciated. Skin: Skin is warm and dry. No rash noted. No erythema. No pallor. Psychiatric: Has a normal mood and affect given situation. Behavior is normal. LABS: Recent Labs Lab 08/06/19 0423 08/05/19 0437 08/04/19 0535 WBC 6.63 5.15 5.68 HGB 13.4 12.8* 13.3 HCT 38.9* 37.3* 38.0* PLT 304 283 299 MONOPCT 11.30 15.70 12.90 Recent Labs Lab 08/06/19 0423 08/05/19 1511 08/05/19 0437 08/04/19 0535 08/03/19 0543 08/02/19 0424 NA 139 -- 137 -- 133* 133* 132* K 3.4* 3.0* 3.5 < > 2.7* 2.6* 2.6* CL 99 -- 101 -- 95* 96* 96* CO2 25 -- 28 -- 24 28 28 BUN 10 -- 15 -- 14 7* 4* CALCIUM 9.1 -- 8.5 -- 8.3* 7.9* 7.4* ALKPHOS -- -- -- -- 75 75 70 ALT -- -- -- -- 46 47 42 AST -- -- -- -- 16 23 36 < > = values in this interval not displayed. Phosphorus: Lab Results Component Value Date PHOS 2.7 08/06/2019 No results for input(s): LABALBU in the last 168 hours. Recent Labs Lab 08/04/19 0535 08/03/19 0543 08/02/19 0424 MG 2.3 2.3 2.2 No results for input(s): AMYLASE in the last 168 hours. No results for input(s): PHART, PO2ART, VZZ4CBD, F3TVDFJN, BEART in the last 168 hours. No results for input(s): APTT, INR, PTT in the last 168 hours. No results for input(s): TSH in the last 168 hours. Invalid input(s): T3FREE, FREET4 No results for input(s): TROPONINT in the last 168 hours. Invalid input(s): CKTOTAL, TROPONINI, CKMBINDEX Microbiology Results (72 hrs) No results found for the last 72 hours. RADIOLOGY: Recent Results (from the past 360 hour(s)) CT Abdomen Pelvis w Contrast Narrative CT ABDOMEN AND PELVIS WITH CONTRAST CLINICAL INFORMATION: Left upper quadrant pain and nausea. COMPARISON: None PROCEDURE: Axial images through the abdomen and pelvis after the administration of 100 ml Omnipaque 350 intravenous contrast. Multiplanar reconstructions. At least one of the following CT dose optimization techniques were used: Automated exposure control; Adjustment of mA and/or kV according to patient size; Use of iterative reconstruction technique. FINDINGS: LUNG BASES: No significant pulmonary abnormality. No pleural effusion or pneumothorax. ABDOMEN Liver and Biliary: No gallbladder or biliary abnormality. Hepatic steatosis. Pancreas, Spleen and Adrenals: No pancreatitis or pancreatic mass. No splenomegaly, splenic mass or splenic hemorrhage. No significant adrenal abnormality. Kidneys: No hydronephrosis, calculus or solid renal mass. ABDOMEN AND PELVIS Bowel: No small bowel dilation or adjacent inflammation. No appendiceal dilation or inflammation. Wall thickening of the splenic flexure and descending colon. Vessels: No significant abnormality in the aorta or its proximal branches. No significant abnormality in the portal veins, mesenteric veins or systemic veins. Lymph Nodes: No adenopathy. Peritoneum and Retroperitoneum: No ascites or free air. No significant retroperitoneal abnormality. PELVIS Genitourinary: Marked distention of the urinary bladder. No pelvic mass. BODY WALL Soft Tissues: No bowel or inflamed fat containing hernia, mass or hemorrhage. Bones: No acute fracture or vertebral end plate destruction. No lytic or blastic lesion. Impression 1. Mild colitis of the splenic flexure and descending colon. 2. Hepatic steatosis. 3. Marked distention of the urinary bladder. No pelvic mass. Signed by: Trinh Melendez Julie Sign Date/Time: 07/31/2019 10:[address] Chest Abdomen Pelvis w Contrast Narrative CT CHEST ABDOMEN AND PELVIS WITH CONTRAST CLINICAL INFORMATION: Unexplained left side pain from the abdominal area to left chest. recent CT abdomen showing colitis. COMPARISON: CT ABDOMEN PELVIS W CONTRAST (07/31/2019); PROCEDURE: Axial images through the chest, abdomen and pelvis after the administration of 100 ml omnipaque 350 intravenous contrast. Multiplanar reconstructions. At least one of the following CT dose optimization techniques were used: Automated exposure control; Adjustment of mA and/or kV according to patient size; Use of iterative reconstruction technique. FINDINGS: CHEST Lungs, Pleura and Airways: No significant pulmonary abnormality. No airway narrowing or obstruction. No pleural effusion or pneumothorax. Mediastinum: No significant pericardial, great vessel or esophageal abnormality. No mediastinal mass. Lymph Nodes: No adenopathy. ABDOMEN Liver and Biliary: No gallbladder or biliary abnormality. Diffuse hepatic steatosis. Pancreas, Spleen and Adrenals: No pancreatitis or pancreatic mass. No splenomegaly, splenic mass or splenic hemorrhage. No significant adrenal abnormality. Kidneys: No hydronephrosis, calculus or solid renal mass. ABDOMEN AND PELVIS Bowel: No small bowel or colonic dilation or adjacent inflammation. No appendiceal dilation or inflammation. Vessels: No significant abnormality in the aorta or its proximal branches. Accessory left renal artery. No significant abnormality in the portal veins, mesenteric veins or systemic veins. Lymph Nodes: No adenopathy. Peritoneum and Retroperitoneum: Trace perisplenic free in left subphrenic region, image 171/series 5. No pneumoperitoneum.. No significant retroperitoneal abnormality. PELVIS Genitourinary: The urinary bladder is over distended. No urinary bladder stone. No pelvic masses. BODY WALL Soft Tissues: Small locules of subcutaneous fat in ventral abdominal wall, image 285/series 4, probably related to subcutaneous injections.. Small fat containing right inguinal hernia. Bones: No acute fracture or vertebral end plate destruction. Subtle sclerotic lesion in T9 vertebra, nonspecific, possible hemangioma, similar to prior CT. Thoracolumbar scoliosis, probably positional. Grade 1 retrolisthesis of L5 on S1. Partial bony bridging across both sacroiliac joints. Impression *Trace perisplenic free fluid in left subphrenic region, similar to CT dated 07/31/2019. *Over distended urinary bladder. *Interval resolution of previously visualized mild thickening of the colon as compared to CT dated 07/31/2019. *Diffuse hepatic steatosis. *Incidental findings as detailed above. Signed by: Trinh Benítez, Pushpender Sign Date/Time: 08/05/2019 11:38 AM PROBLEM LIST Active Problems: Diabetic ketoacidosis without coma associated with type 2 diabetes mellitus HLD (hyperlipidemia) HTN (hypertension) Left upper quadrant pain Mild colitis, acute; splenic flexure and descending colon ASSESSMENT & PLAN DKA - now resolved. Continue with lantus and sliding scale - diabetes education consulted - emphasized compliance - encouraged patient to administer insulin himself while in the hospital with the help of t yolette RN Abdominal pain with possible colitis of splenic flexure and descending colon - Transitioned from IV to PO cipro/flagyl to complete 7 days - continues to have abdominal pain. Repeat CT chest/abdomen/pelvis done today which demonst rates IMPRESSION: *Trace perisplenic free fluid in left subphrenic region, similar to CT dated 07/31/2019. *Over distended urinary bladder. *Interval resolution of previously visualized mild thickening of the colon as compared to CT dated 07/31/2019. *Diffuse hepatic steatosis. *Incidental findings as detailed above. - continue with pain control for now. Gi cocktail apparentl with no relief - due to persistent pain, patient complaining of early satiety Gastroenterology consulted. Appreciate recs HTN - increase lisinopril to 40mg Hypokalemia - replace per protocol. Now improved GI/DVT prophylaxis Dion Terrell MD 08/06/2019 10:19 AM Greater than 35 minutes spent today overall in coordination of care, seeing and managing pa avelina, review of data, coordination with staff, coordination with involved consultants, and including any scheduled multidisciplinary rounding focused on the patient with 50 percent or more spent seeing and managing patient and counseling/coordination. Dictation software, [email or web address], used which may contain error for similar sounding words even af ter review. Personal communication requested for any clarification. Portions of this chart may have been copied from previous notes for continuity of care purp ose Dion Hsieh MD - 08/05/2019 9:26 AM PDT [facility] Service: Hospitalist Progress Note Pt: Sacha Rodriguez AGE/SEX: 44 y.o. male ROOM: [address] [place] [address] : 1975 PCP: No Physician on file ADMIT DATE: 07/31/2019 TODAY'S DATE: 08/05/2019 Hospital Day/Hospital Course: LOS: 5 days 44m non compliant, with past medical history of DM2, HLD, HTN who presented with nausea/vom iting and abdominal pain. The patient has serum ketones and elevated anion gap with elevated blood sugar. He was admitted for DKA. He has improved. Hga1c >17. Ct ABDOMEN demonstrated IMPRESSION: 1. Mild colitis of the splenic flexure and descending colon. 2. Hepatic steatosis. 3. Marked distention of the urinary bladder. No pelvic mass. He has been on cipro and flagyl IV SUBJECTIVE: Patient seen and examined. He continues to complain of pain in the left upper quadrant carmelo g into the left chest. Is having daily bowel movements. Denies diarrhea. No shortness of br eath. Had no orthopnea or PND. No dizziness or lightheadedness. Scheduled Medications: GI cocktail white (Maalox Plus, lidocaine viscous) (ADS admixture) 40 mL Oral Once atorvaSTATin 20 mg Oral Nightly ciprofloxacin 500 mg Oral BID enoxaparin 40 mg Subcutaneous Daily famotidine 20 mg Intravenous 2 times per day insulin glargine 15 Units Subcutaneous QAM insulin lispro 0-12 Units Subcutaneous 4x Daily WC and HS [START ON 08/06/2019] lisinopril 20 mg Oral Daily metoclopramide 10 mg Intravenous 4 times per day metroNIDAZOLE 500 mg Oral 3 times per day Continuous Infusions dextrose 10% dextrose 10% sodium chloride 0.9% PRN Medications acetaminophen, Hypoglycemia Management AND POCT Glucose AND dextrose AND dextro se 10%, dextrose 10%, dextrose, fentaNYL (PF), HYDROcodone-acetaminophen, insulin regular, o ndansetron, Potassium replacement - NON ICU AND Potassium AND potassium chloride A ND potassium chloride AND potassium chloride IVPB (other volumes & diluents) AND p otassium chloride IVPB (other volumes & diluents), sodium chloride 0.9% Allergy: No Known Allergies OBJECTIVE: Vitals: Patient Vitals for the past 24 hrs: BP Temp Temp src Pulse Resp SpO2 08/05/19 0848 (!) 187/98 08/05/19 0737 (!) 195/104 08/05/19 0736 (!) 195/100 36.9 C (98.4 F) Oral 75 15 99 % 08/05/19 0419 127/57 36.8 C (98.2 F) Oral 74 16 96 % 08/05/19 0100 119/78 36.9 C (98.4 F) Oral 73 16 96 % 08/04/19 2008 141/87 36.8 C (98.2 F) Oral 79 16 96 % 08/04/19 1538 167/88 37.1 C (98.8 F) Oral 72 20 99 % 08/04/19 1156 113/69 37.1 C (98.7 F) Oral 73 20 96 % I&O Detailed Table: Intake/Output Summary (Last 24 hours) at 08/05/2019 0926 Last data filed at 08/05/2019 0743 Gross per 24 hour Intake 800 ml Output 200 ml Net 600 ml Patient Vitals for the past 96 hrs: Weight 08/03/19 0301 62.6 kg (138 lb) 08/02/19 0258 62.6 kg (138 lb) Physical Examination: Constitutional: Awake, interactive. Sitting up in bed. HEENT: Neck supple, no JVD, non icteric sclera. Cardiovascular: Normal rate, regular rhythm. S1/S2. Exam reveals no appreciated gallop or f riction rub. No murmur heard. Pulmonary/Chest: Effort normal and breath sounds normal. No stridor. No respiratory distres s. no wheezes. no rales. exhibits no tenderness on palpation. Abdominal: Soft. Bowel sounds are normal. exhibits no distension and no mass. There is no t enderness on palpation of the left abdomen. There is no rebound and no guarding. Extremeties/Musculoskeletal: Normal range of motion for patient. exhibits no tenderness. e xhibits no edema. Neurological: Alert and oriented to person, place, and time. No cranial nerve deficit ad reciated. Skin: Skin is warm and dry. No rash noted. No erythema. No pallor. Psychiatric: Has a normal mood and affect given situation. Behavior is normal. LABS: Recent Labs Lab 08/05/1943608/04/1953408/03/19 0543 WBC 5.15 5.68 7.06 HGB 12.8* 13.3 12.5* HCT 37.3* 38.0* 35.5* PLT 283 299 275 MONOPCT 15.70 12.90 11.90 Recent Labs Lab 08/05/19 04308/04/19205008/04/19 1356 08/04/1935 08/03/19 0543 08/02/19 0424 NA 137 -- -- 133* 133* 132* K 3.5 3.0* 3.0* 2.7* 2.6* 2.6* CL 101 -- -- 95* 96* 96* CO2 28 -- -- 24 28 28 BUN 15 -- -- 14 7* 4* CALCIUM 8.5 -- -- 8.3* 7.9* 7.4* ALKPHOS -- -- -- 75 75 70 ALT -- -- -- 46 47 42 AST -- -- -- 16 23 36 Phosphorus: Lab Results Component Value Date PHOS 2.2 (L) 08/05/2019 No results for input(s): LABALBU in the last 168 hours. Recent Labs Lab 08/04/1935 08/03/19 0543 08/02/19 0424 MG 2.3 2.3 2.2 No results for input(s): AMYLASE in the last 168 hours. No results for input(s): PHART, PO2ART, VQQ5VDD, A4ECINMR, BEART in the last 168 hours. No results for input(s): APTT, INR, PTT in the last 168 hours. No results for input(s): TSH in the last 168 hours. Invalid input(s): T3FREE, FREET4 No results for input(s): TROPONINT in the last 168 hours. Invalid input(s): CKTOTAL, TROPONINI, CKMBINDEX Microbiology Results (72 hrs) No results found for the last 72 hours. RADIOLOGY: Recent Results (from the past 360 hour(s)) CT Abdomen Pelvis w Contrast Narrative CT ABDOMEN AND PELVIS WITH CONTRAST CLINICAL INFORMATION: Left upper quadrant pain and nausea. COMPARISON: None PROCEDURE: Axial images through the abdomen and pelvis after the administration of 100 ml Omnipaque 350 intravenous contrast. Multiplanar reconstructions. At least one of the following CT dose optimization techniques were used: Automated exposure control; Adjustment of mA and/or kV according to patient size; Use of iterative reconstruction technique. FINDINGS: LUNG BASES: No significant pulmonary abnormality. No pleural effusion or pneumothorax. ABDOMEN Liver and Biliary: No gallbladder or biliary abnormality. Hepatic steatosis. Pancreas, Spleen and Adrenals: No pancreatitis or pancreatic mass. No splenomegaly, splenic mass or splenic hemorrhage. No significant adrenal abnormality. Kidneys: No hydronephrosis, calculus or solid renal mass. ABDOMEN AND PELVIS Bowel: No small bowel dilation or adjacent inflammation. No appendiceal dilation or inflammation. Wall thickening of the splenic flexure and descending colon. Vessels: No significant abnormality in the aorta or its proximal branches. No significant abnormality in the portal veins, mesenteric veins or systemic veins. Lymph Nodes: No adenopathy. Peritoneum and Retroperitoneum: No ascites or free air. No significant retroperitoneal abnormality. PELVIS Genitourinary: Marked distention of the urinary bladder. No pelvic mass. BODY WALL Soft Tissues: No bowel or inflamed fat containing hernia, mass or hemorrhage. Bones: No acute fracture or vertebral end plate destruction. No lytic or blastic lesion. Impression 1. Mild colitis of the splenic flexure and descending colon. 2. Hepatic steatosis. 3. Marked distention of the urinary bladder. No pelvic mass. Signed by: Trinh Melendez, Cyn Sign Date/Time: 07/31/2019 10:35 PM PROBLEM LIST Active Problems: Diabetic ketoacidosis without coma associated with type 2 diabetes mellitus HLD (hyperlipidemia) HTN (hypertension) Left upper quadrant pain Mild colitis, acute; splenic flexure and descending colon ASSESSMENT & PLAN DKA - now resolved. Continue with lantus and sliding scale - diabetes education consulted - emphasized compliance - encouraged patient to administer insulin himself while in the hospital with the help of t yolette [place] Abdominal pain with possible colitis of splenic flexure and descending colon - Transitioned from IV to PO cipro/flagyl to complete 7 days - continues to have abdominal pain. Repeat CT chest/abdomen/pelvis done today which demonst rates IMPRESSION: *Trace perisplenic free fluid in left subphrenic region, similar to CT dated 07/31/2019. *Over distended urinary bladder. *Interval resolution of previously visualized mild thickening of the colon as compared to CT dated 07/31/2019. *Diffuse hepatic steatosis. *Incidental findings as detailed above. - continue with pain control for now. Will attempt GI cocktail. HTN - continue lisnopril Hypokalemia - replace per protocol. Now improved GI/DVT prophylaxis Dion Terrell MD 08/05/2019 9:26 AM Greater than 35 minutes spent today overall in coordination of care, seeing and managing pa tient, review of data, coordination with staff, coordination with involved consultants, and including any scheduled multidisciplinary rounding focused on the patient with 50 percent or more spent seeing and managing patient and counseling/coordination. Dictation software, [email or web address], used which may contain error for similar sounding words even af ter review. Personal communication requested for any clarification. Portions of this chart may have been copied from previous notes for continuity of care purp ose Dion Hsieh MD - 08/04/2019 9:44 AM PDT [facility]: Hospitalist Progress Note Pt: Sacha Rodriguez AGE/SEX: 44 y.o. male ROOM: [facility]- : 1975 PCP: No Physician on file ADMIT DATE: 07/31/2019 TODAY'S DATE: 08/04/2019 Hospital Day/Hospital Course: LOS: 4 days 44m non compliant, with past medical history of DM2, HLD, HTN who presented with nausea/vom iting and abdominal pain. The patient has serum ketones and elevated anion gap with elevated blood sugar. He was admitted for DKA. He has improved. Hga1c >17. Ct ABDOMEN demonstrated IMPRESSION: 1. Mild colitis of the splenic flexure and descending colon. 2. Hepatic steatosis. 3. Marked distention of the urinary bladder. No pelvic mass. He has been on cipro and flagyl IV SUBJECTIVE: Patient seen and examined. Complains of some nausea today and left abdominal pain. Last bow el movement was yesterday. No chest pain or shortness of breath. Had no orthopnea or PND. No dizziness or lightheadedness. Scheduled Medications: atorvaSTATin 20 mg Oral Nightly ciprofloxacin 500 mg Oral BID enoxaparin 40 mg Subcutaneous Daily famotidine 20 mg Intravenous 2 times per day insulin glargine 15 Units Subcutaneous QAM insulin lispro 0-12 Units Subcutaneous 4x Daily WC and HS lisinopril 20 mg Oral Daily metoclopramide 10 mg Intravenous 4 times per day metroNIDAZOLE 500 mg Oral 3 times per day Continuous Infusions dextrose 10% dextrose 10% sodium chloride 0.9% PRN Medications acetaminophen, Hypoglycemia Management AND POCT Glucose AND dextrose AND dextro se 10%, dextrose 10%, dextrose, HYDROcodone-acetaminophen, insulin regular, ondansetron, Pot assium replacement - NON ICU AND Potassium AND potassium chloride AND potassium chloride AND potassium chloride IVPB (other volumes & diluents) AND potassium chlori de IVPB (other volumes & diluents), sodium chloride 0.9% Allergy: No Known Allergies OBJECTIVE: Vitals: Patient Vitals for the past 24 hrs: BP Temp Temp src Pulse Resp SpO2 08/04/19 0915 99/56 08/04/19 0804 (!) 89/51 36.9 C (98.4 F) Oral 73 20 98 % 08/04/19 0453 99/58 36.9 C (98.5 F) Oral 71 16 97 % 08/04/19 0006 143/84 37 C (98.6 F) Oral 75 16 98 % 08/03/19 1907 127/82 37 C (98.6 F) Oral 77 16 98 % 08/03/19 1628 (!) 156/96 37.1 C (98.7 F) Oral 73 16 98 % 08/03/19 1147 127/85 36.9 C (98.4 F) Oral 82 18 97 % I&O Detailed Table: No intake or output data in the 24 hours ending 08/04/19 0944 Patient Vitals for the past 96 hrs: Weight 08/03/19 0301 62.6 kg (138 lb) 08/02/19 0258 62.6 kg (138 lb) 07/31/19 2354 62.7 kg (138 lb 3.7 oz) 07/31/192024 61.8 kg (136 lb 5.7 oz) Physical Examination: Constitutional: Awake, interactive. No distress. HEENT: Neck supple, no JVD, non icteric sclera. Cardiovascular: Normal rate, regular rhythm. S1/S2. Exam reveals no appreciated gallop or f riction rub. No murmur heard. Pulmonary/Chest: Effort normal and breath sounds normal. No stridor. No respiratory distres s. no wheezes. no rales. exhibits no chest wall tenderness. Abdominal: Soft. Bowel sounds are normal. exhibits no distension and no mass. There is no t enderness on palpation of the left abdomen. There is no rebound and no guarding. Extremeties/Musculoskeletal: Normal range of motion for patient. exhibits no tenderness. e xhibits no edema. Neurological: Alert and oriented to person, place, and time. No cranial nerve deficit ad reciated. Skin: Skin is warm and dry. No rash noted. No erythema. No pallor. Psychiatric: Has a normal mood and affect given situation. Behavior is normal. LABS: Recent Labs Lab 08/04/19 0535 08/03/19 0543 08/02/19 0424 WBC 5.68 7.06 10.69 HGB 13.3 12.5* 11.6* HCT 38.0* 35.5* 32.8* PLT 299 275 261 MONOPCT 12.90 11.90 6.40 Recent Labs Lab 08/04/19 0535 08/03/19 0543 08/02/19 0424 NA 133* 133* 132* K 2.7* 2.6* 2.6* CL 95* 96* 96* CO2 24 28 28 BUN 14 7* 4* CALCIUM 8.3* 7.9* 7.4* ALKPHOS 75 75 70 ALT 46 47 42 AST 16 23 36 Phosphorus: Lab Results Component Value Date PHOS 3.4 08/04/2019 No results for input(s): LABALBU in the last 168 hours. Recent Labs Lab 08/04/19 0535 08/03/19 0543 08/02/19 0424 MG 2.3 2.3 2.2 No results for input(s): AMYLASE in the last 168 hours. No results for input(s): PHART, PO2ART, CYN0VSK, X8IMRLLD, BEART in the last 168 hours. No results for input(s): APTT, INR, PTT in the last 168 hours. No results for input(s): TSH in the last 168 hours. Invalid input(s): T3FREE, FREET4 No results for input(s): TROPONINT in the last 168 hours. Invalid input(s): CKTOTAL, TROPONINI, CKMBINDEX Microbiology Results (72 hrs) No results found for the last 72 hours. RADIOLOGY: Recent Results (from the past 360 hour(s)) CT Abdomen Pelvis w Contrast Narrative CT ABDOMEN AND PELVIS WITH CONTRAST CLINICAL INFORMATION: Left upper quadrant pain and nausea. COMPARISON: None PROCEDURE: Axial images through the abdomen and pelvis after the administration of 100 ml Omnipaque 350 intravenous contrast. Multiplanar reconstructions. At least one of the following CT dose optimization techniques were used: Automated exposure control; Adjustment of mA and/or kV according to patient size; Use of iterative reconstruction technique. FINDINGS: LUNG BASES: No significant pulmonary abnormality. No pleural effusion or pneumothorax. ABDOMEN Liver and Biliary: No gallbladder or biliary abnormality. Hepatic steatosis. Pancreas, Spleen and Adrenals: No pancreatitis or pancreatic mass. No splenomegaly, splenic mass or splenic hemorrhage. No significant adrenal abnormality. Kidneys: No hydronephrosis, calculus or solid renal mass. ABDOMEN AND PELVIS Bowel: No small bowel dilation or adjacent inflammation. No appendiceal dilation or inflammation. Wall thickening of the splenic flexure and descending colon. Vessels: No significant abnormality in the aorta or its proximal branches. No significant abnormality in the portal veins, mesenteric veins or systemic veins. Lymph Nodes: No adenopathy. Peritoneum and Retroperitoneum: No ascites or free air. No significant retroperitoneal abnormality. PELVIS Genitourinary: Marked distention of the urinary bladder. No pelvic mass. BODY WALL Soft Tissues: No bowel or inflamed fat containing hernia, mass or hemorrhage. Bones: No acute fracture or vertebral end plate destruction. No lytic or blastic lesion. Impression 1. Mild colitis of the splenic flexure and descending colon. 2. Hepatic steatosis. 3. Marked distention of the urinary bladder. No pelvic mass. Signed by: Trinh Melendez Cyn Sign Date/Time: 07/31/2019 10:35 PM PROBLEM LIST Active Problems: Diabetic ketoacidosis without coma associated with type 2 diabetes mellitus HLD (hyperlipidemia) HTN (hypertension) Left upper quadrant pain Mild colitis, acute; splenic flexure and descending colon ASSESSMENT & PLAN DKA - now resolved. Continue with lantus and sliding scale - diabetes education consulted - emphasized compliance - encouraged patient to administer insulin himself while in the hospital with the help of t yolette RN Abdominal pain with possible colitis of splenic flexure and descending colon - Transitioned from IV to PO cipro/flagyl to complete 7 days HTN - continue lisnopril Hypokalemia - replace per protocol. Repeat bmp in afternoon GI/DVT prophylaxis Dion Terrell MD 08/04/2019 9:44 AM Greater than 35 minutes spent today overall in coordination of care, seeing and managing pa tient, review of data, coordination with staff, coordination with involved consultants, and including any scheduled multidisciplinary rounding focused on the patient with 50 percent or more spent seeing and managing patient and counseling/coordination. Dictation software, [email or web address], used which may contain error for similar sounding words even af ter review. Personal communication requested for any clarification. Portions of this chart may have been copied from previous notes for continuity of care purp ose Dion Hsieh MD - 08/03/2019 10:29 AM PDT [facility]: Hospitalist Progress Note Pt: Sacha Palma Jennifer AGE/SEX: 44 y.o. male ROOM: [facility] : 1975 PCP: No Physician on file ADMIT DATE: 07/31/2019 TODAY'S DATE: 08/03/2019 Hospital Day/Hospital Course: LOS: 3 days 44m non compliant, with past medical history of DM2, HLD, HTN who presented with nausea/vom iting and abdominal pain. The patient has serum ketones and elevated anion gap with elevated blood sugar. He was admitted for DKA. He has improved. Hga1c >17. Ct ABDOMEN demonstrated IMPRESSION: 1. Mild colitis of the splenic flexure and descending colon. 2. Hepatic steatosis. 3. Marked distention of the urinary bladder. No pelvic mass. He has been on cipro and flagyl IV SUBJECTIVE: Patient seen and examined. Doing well at this time. No nausea/vomiting today. No chest pain or shortness of breath. Had no orthopnea or PND. No Abdominal pain, N/V or fever. No dizzi ness or lightheadedness. Scheduled Medications: atorvaSTATin 20 mg Oral Nightly ciprofloxacin 400 mg Intravenous Q12H enoxaparin 40 mg Subcutaneous Daily famotidine 20 mg Intravenous 2 times per day insulin glargine 15 Units Subcutaneous QAM insulin lispro 0-12 Units Subcutaneous 4x Daily WC and HS lisinopril 20 mg Oral Daily metoclopramide 10 mg Intravenous 4 times per day metroNIDAZOLE 500 mg Intravenous Q8H potassium chloride (peripheral line) IVPB 40 mEq Intravenous Once Continuous Infusions dextrose 10% dextrose 10% sodium chloride 0.9% PRN Medications acetaminophen, Hypoglycemia Management AND POCT Glucose AND dextrose AND dextro se 10%, dextrose 10%, dextrose, HYDROcodone-acetaminophen, HYDROmorphone, insulin regular, o ndansetron, Potassium replacement - NON ICU AND [START ON 08/04/2019] Potassium AND p otassium chloride AND potassium chloride AND potassium chloride IVPB (other volumes & diluents) AND potassium chloride IVPB (other volumes & diluents), sodium chloride 0.9% Allergy: No Known Allergies OBJECTIVE: Vitals: Patient Vitals for the past 24 hrs: BP Temp Temp src Pulse Resp SpO2 Weight 08/03/19 0729 119/69 36.9 C (98.4 F) Oral 71 16 96 % 08/03/19 0301 112/69 36.9 C (98.4 F) Oral 68 18 97 % 62.6 kg (138 lb) 08/02/19 2334 135/86 37.2 C (98.9 F) Oral 77 18 98 % 08/02/192001 121/67 37 C (98.6 F) Oral 75 18 97 % 08/02/19 1558 172/82 36.9 C (98.4 F) Oral 76 18 97 % 08/02/19 1128 (!) 166/98 37.1 C (98.8 F) Oral 77 18 98 % I&O Detailed Table: Intake/Output Summary (Last 24 hours) at 08/03/2019 1029 Last data filed at 08/02/2019 1900 Gross per 24 hour Intake 1327.6 ml Output Net 1327.6 ml Patient Vitals for the past 96 hrs: Weight 08/03/19 0301 62.6 kg (138 lb) 08/02/19 0258 62.6 kg (138 lb) 07/31/19 2354 62.7 kg (138 lb 3.7 oz) 07/31/192024 61.8 kg (136 lb 5.7 oz) Physical Examination: Constitutional: Awake, interactive. Sitting up in bed. HEENT: Neck supple, no JVD, non icteric sclera. Cardiovascular: Normal rate, regular rhythm. S1/S2. Exam reveals no appreciated gallop or f riction rub. No murmur heard. Pulmonary/Chest: Effort normal and breath sounds normal. No stridor. No respiratory distres s. no wheezes. no rales. exhibits no chest wall tenderness. Abdominal: Soft. Bowel sounds are normal. exhibits no distension and no mass. There is no t enderness. There is no rebound and no guarding. Extremeties/Musculoskeletal: Normal range of motion for patient. exhibits no tenderness. e xhibits no edema. Neurological: Alert and oriented to person, place, and time. No cranial nerve deficit ad reciated. Exhibits normal muscle tone. Skin: Skin is warm and dry. No rash noted. No erythema. No pallor. Psychiatric: Has a normal mood and affect given situation. Behavior is normal. LABS: Recent Labs Lab 08/03/19 0543 08/02/19 0424 08/01/19 0423 WBC 7.06 10.69 10.68 HGB 12.5* 11.6* 11.6* HCT 35.5* 32.8* 33.8* PLT 275 261 294 MONOPCT 11.90 6.40 7.20 Recent Labs Lab 08/03/19 0543 08/02/19 0424 08/01/19 1152 07/31/19 2041 NA 133* 132* 136 < > 134* K 2.6* 2.6* 3.0* < > 3.9 CL 96* 96* 104 < > 94* CO2 28 28 24 < > 13* BUN 7* 4* 9 < > 14 CALCIUM 7.9* 7.4* 8.0* < > 9.3 ALKPHOS 75 70 -- -- 95 ALT 47 42 -- -- 45 AST 23 36 -- -- 22 < > = values in this interval not displayed. Phosphorus: Lab Results Component Value Date PHOS 2.4 08/03/2019 No results for input(s): LABALBU in the last 168 hours. Recent Labs Lab 08/03/19 0543 08/02/19 0424 08/01/19 1152 MG 2.3 2.2 1.6* No results for input(s): AMYLASE in the last 168 hours. No results for input(s): PHART, PO2ART, BBR8EBK, F8UYNGAA, BEART in the last 168 hours. No results for input(s): APTT, INR, PTT in the last 168 hours. No results for input(s): TSH in the last 168 hours. Invalid input(s): T3FREE, FREET4 No results for input(s): TROPONINT in the last 168 hours. Invalid input(s): CKTOTAL, TROPONINI, CKMBINDEX Microbiology Results (72 hrs) No results found for the last 72 hours. RADIOLOGY: Recent Results (from the past 360 hour(s)) CT Abdomen Pelvis w Contrast Narrative CT ABDOMEN AND PELVIS WITH CONTRAST CLINICAL INFORMATION: Left upper quadrant pain and nausea. COMPARISON: None PROCEDURE: Axial images through the abdomen and pelvis after the administration of 100 ml Omnipaque 350 intravenous contrast. Multiplanar reconstructions. At least one of the following CT dose optimization techniques were used: Automated exposure control; Adjustment of mA and/or kV according to patient size; Use of iterative reconstruction technique. FINDINGS: LUNG BASES: No significant pulmonary abnormality. No pleural effusion or pneumothorax. ABDOMEN Liver and Biliary: No gallbladder or biliary abnormality. Hepatic steatosis. Pancreas, Spleen and Adrenals: No pancreatitis or pancreatic mass. No splenomegaly, splenic mass or splenic hemorrhage. No significant adrenal abnormality. Kidneys: No hydronephrosis, calculus or solid renal mass. ABDOMEN AND PELVIS Bowel: No small bowel dilation or adjacent inflammation. No appendiceal dilation or inflammation. Wall thickening of the splenic flexure and descending colon. Vessels: No significant abnormality in the aorta or its proximal branches. No significant abnormality in the portal veins, mesenteric veins or systemic veins. Lymph Nodes: No adenopathy. Peritoneum and Retroperitoneum: No ascites or free air. No significant retroperitoneal abnormality. PELVIS Genitourinary: Marked distention of the urinary bladder. No pelvic mass. BODY WALL Soft Tissues: No bowel or inflamed fat containing hernia, mass or hemorrhage. Bones: No acute fracture or vertebral end plate destruction. No lytic or blastic lesion. Impression 1. Mild colitis of the splenic flexure and descending colon. 2. Hepatic steatosis. 3. Marked distention of the urinary bladder. No pelvic mass. Signed by: Trinh Melendez Julie Sign Date/Time: 07/31/2019 10:35 PM PROBLEM LIST Active Problems: Diabetic ketoacidosis without coma associated with type 2 diabetes mellitus HLD (hyperlipidemia) HTN (hypertension) Left upper quadrant pain Mild colitis, acute; splenic flexure and descending colon ASSESSMENT & PLAN DKA - now resolved. Continue with lantus and sliding scale - diabetes education consulted - emphasized compliance Abdominal pain with possible colitis of splenic flexure and descending colon - will transition from IV to PO cipro/flagyl to complete 7 days HTN - continue lisnopril Hypokalemia - replace per protocol GI/DVT prophylaxis Dion Terrell MD 08/03/2019 10:29 AM Greater than 35 minutes spent today overall in coordination of care, seeing and managing pa tient, review of data, coordination with staff, coordination with involved consultants, and including any scheduled multidisciplinary rounding focused on the patient with 50 percent or more spent seeing and managing patient and counseling/coordination. Dictation software, Dragon, used which may contain error for similar sounding words even af ter review. Personal communication requested for any clarification. Portions of this chart may have been copied from previous notes for continuity of care purp ose Pineda Avila MD - 08/02/2019 2:36 PM PDT [facility] Service: Hospitalist Progress Note Hospital Day: LOS: 2 days SUBJECTIVE Patient Summary: Events Overnight: Reports mild left upper quadrant pain. Continues to report signific ant nausea. Scheduled Medications atorvaSTATin 20 mg Oral Nightly ciprofloxacin 400 mg Intravenous Q12H enoxaparin 40 mg Subcutaneous Daily famotidine 20 mg Intravenous 2 times per day insulin glargine 15 Units Subcutaneous QAM insulin lispro 0-12 Units Subcutaneous 4x Daily WC and HS lisinopril 20 mg Oral Daily metoclopramide 10 mg Intravenous 4 times per day metroNIDAZOLE 500 mg Intravenous Q8H potassium chloride 20 mEq Oral Once potassium 20 mEq Oral TID potassium chloride (peripheral line) IVPB 40 mEq Intravenous Once Continuous Infusions dextrose 10% dextrose 10% sodium chloride 0.9% OBJECTIVE Vital Signs: BP (!) 166/98 | Pulse 77 | Temp 37.1 C (98.8 F) (Oral) | Resp 18 | Ht 1.6 m (5' 3") | Wt 62.6 kg (138 lb) | SpO2 98% | BMI 24.45 kg/m Physical Exam General appearance: Alert OX3 Eyes: PERRLA Neck: No JVD Lungs:CTAB Heart: S1 S2 audible NO MGR. Abdomen: LUQ tenderness Extremities: No CCE. Neuro Grossly Intact DATA Recent Labs Lab 08/02/19 0424 08/01/19 0423 07/31/19 2041 WBC 10.69 10.68 15.21* HGB 11.6* 11.6* 14.5 HCT 32.8* 33.8* 42.7 PLT 261 294 344 MONOPCT 6.40 7.20 4.10 Recent Labs Lab 08/02/19 0424 08/01/19 1152 08/01/19 0746 07/31/19 2041 NA 132* 136 137 < > 134* K 2.6* 3.0* 3.5 < > 3.9 CL 96* 104 106 < > 94* CO2 28 24 23 < > 13* BUN 4* 9 10 < > 14 CALCIUM 7.4* 8.0* 8.0* < > 9.3 ALKPHOS 70 -- -- -- 95 ALT 42 -- -- -- 45 AST 36 -- -- -- 22 < > = values in this interval not displayed. Phosphorus: Lab Results Component Value Date PHOS 2.7 08/02/2019 No results for input(s): LABALBU in the last 168 hours. Recent Labs Lab 08/02/19 0424 08/01/19 1152 08/01/19 0746 MG 2.2 1.6* 1.7 No results for input(s): AMYLASE in the last 168 hours. No results for input(s): PHART, PO2ART, IOF7MDK, C7OOMCSR, BEART in the last 168 hours. No results for input(s): APTT, INR, PTT in the last 168 hours. No results for input(s): TSH in the last 168 hours. Invalid input(s): T3FREE, FREET4 No results for input(s): TROPONINT in the last 168 hours. Invalid input(s): CKTOTAL, TROPONINI, CKMBINDEX Radiology Ct Abdomen Pelvis W Contrast Result Date: 07/31/2019 CT ABDOMEN AND PELVIS WITH CONTRAST CLINICAL INFORMATION: Left upper quadrant pain and naus ea. COMPARISON: None PROCEDURE: Axial images through the abdomen and pelvis after the admini stration of 100 ml Omnipaque 350 intravenous contrast. Multiplanar reconstructions. At least one of the following CT dose optimization techniques were used: Automated exposure control; Adjustment of mA and/or kV according to patient size; Use of iterative reconstruction techn ique. FINDINGS: LUNG BASES: No significant pulmonary abnormality. No pleural effusion or pne umothorax. ABDOMEN Liver and Biliary: No gallbladder or biliary abnormality. Hepatic steato sis. Pancreas, Spleen and Adrenals: No pancreatitis or pancreatic mass. No splenomegaly, spl enic mass or splenic hemorrhage. No significant adrenal abnormality. Kidneys: No hydronephro sis, calculus or solid renal mass. ABDOMEN AND PELVIS Bowel: No small bowel dilation or jese cent inflammation. No appendiceal dilation or inflammation. Wall thickening of the splenic flexure and descending colon. Vessels: No significant abnormality in the aorta or its proxim al branches. No significant abnormality in the portal veins, mesenteric veins or systemic ve ins. Lymph Nodes: No adenopathy. Peritoneum and Retroperitoneum: No ascites or free air. No significant retroperitoneal abnormality. PELVIS Genitourinary: Marked distention of the urin quinn bladder. No pelvic mass. BODY WALL Soft Tissues: No bowel or inflamed fat containing he rnia, mass or hemorrhage. Bones: No acute fracture or vertebral end plate destruction. No ly tic or blastic lesion. 1. Mild colitis of the splenic flexure and descending colon. 2. Hepatic steatosis. 3. Marke d distention of the urinary bladder. No pelvic mass. Signed by: Trinh Melendez Julie Sign Date/Time: 07/31/2019 10:35 PM PROBLEM LIST Active Problems: Diabetic ketoacidosis without coma associated with type 2 diabetes mellitus HLD (hyperlipidemia) HTN (hypertension) Left upper quadrant pain Mild colitis, acute; splenic flexure and descending colon Resolved Problems: * No resolved hospital problems. * ASSESSMENT & PLAN Acute gastroenteritis with involvement of the colon we will continue IV antibiotics for now Intractable nausea vomiting continue will start him on scheduled Reglan DKA resolved transition to subcutaneous insulin. A1c 17. Patient will need insulin treatm ent as outpatient. Consult health educator Hypokalemia hypophosphatemia and hypomagnesemia replace all Home tomorrow with new start insulin therapy will need outpatient follow-up with endocrine. Code Status: Full Code Pineda Pace MD 08/02/2019 2:36 PM Pineda Avila MD - 08/01/2019 2:20 PM PDT [facility] Service: Hospitalist Progress Note Hospital Day: LOS: 1 day SUBJECTIVE Patient Summary: Events Overnight: Patient denies any diarrhea but continues to have nausea vomiting an d left upper quadrant pain. Scheduled Medications atorvaSTATin 20 mg Oral Nightly ciprofloxacin 400 mg Intravenous Q12H enoxaparin 40 mg Subcutaneous Daily famotidine 20 mg Intravenous 2 times per day insulin glargine 15 Units Subcutaneous Nightly insulin lispro 0-12 Units Subcutaneous 4x Daily WC and HS lisinopril 20 mg Oral Daily magnesium sulfate 2 g Intravenous Once metroNIDAZOLE 500 mg Intravenous Q8H potassium 20 mEq Oral TID potassium phosphate IVPB 30 mmol Intravenous Once Continuous Infusions dextrose 10% dextrose 10% sodium chloride 0.9% OBJECTIVE Vital Signs: BP 140/74 | Pulse 77 | Temp 36.5 C (97.7 F) (Oral) | Resp 20 | Ht 1.6 m (5' 3") | Wt 62.7 kg (138 lb 3.7 oz) | SpO2 99% | BMI 24.49 kg/m Physical Exam General appearance: Alert OX3 Eyes: PERRLA Neck: No JVD Lungs:CTAB Heart: S1 S2 audible NO MGR. Abdomen: LUQ tenderness Extremities: No CCE. Neuro Grossly Intact DATA Recent Labs Lab 08/01/19 0423 07/31/19 204 WBC 10.68 15.21* HGB 11.6* 14.5 HCT 33.8* 42.7 PLT 294 344 MONOPCT 7.20 4.10 Recent Labs Lab 08/01/19 1152 08/01/19 0746 08/01/193 07/31/19 204 NA 136 137 137 134* K 3.0* 3.5 3.6 3.9 CL 104 106 105 94* CO2 24 23 21* 13* BUN 9 10 10 14 CALCIUM 8.0* 8.0* 7.9* 9.3 ALKPHOS -- -- -- 95 ALT -- -- -- 45 AST -- -- -- 22 Phosphorus: Lab Results Component Value Date PHOS 1.1 (L) 08/01/2019 No results for input(s): LABALBU in the last 168 hours. Recent Labs Lab 08/01/19 1152 08/01/19 0746 08/01/19422 MG 1.6* 1.7 1.6* No results for input(s): AMYLASE in the last 168 hours. No results for input(s): PHART, PO2ART, TXQ8EBL, E4FICWFG, BEART in the last 168 hours. No results for input(s): APTT, INR, PTT in the last 168 hours. No results for input(s): TSH in the last 168 hours. Invalid input(s): T3FREE, FREET4 No results for input(s): TROPONINT in the last 168 hours. Invalid input(s): CKTOTAL, TROPONINI, CKMBINDEX Radiology Ct Abdomen Pelvis W Contrast Result Date: 07/31/2019 CT ABDOMEN AND PELVIS WITH CONTRAST CLINICAL INFORMATION: Left upper quadrant pain and naus ea. COMPARISON: None PROCEDURE: Axial images through the abdomen and pelvis after the admini stration of 100 ml Omnipaque 350 intravenous contrast. Multiplanar reconstructions. At least one of the following CT dose optimization techniques were used: Automated exposure control; Adjustment of mA and/or kV according to patient size; Use of iterative reconstruction techn ique. FINDINGS: LUNG BASES: No significant pulmonary abnormality. No pleural effusion or pne umothorax. ABDOMEN Liver and Biliary: No gallbladder or biliary abnormality. Hepatic steato sis. Pancreas, Spleen and Adrenals: No pancreatitis or pancreatic mass. No splenomegaly, spl enic mass or splenic hemorrhage. No significant adrenal abnormality. Kidneys: No hydronephro sis, calculus or solid renal mass. ABDOMEN AND PELVIS Bowel: No small bowel dilation or jese cent inflammation. No appendiceal dilation or inflammation. Wall thickening of the splenic flexure and descending colon. Vessels: No significant abnormality in the aorta or its proxim al branches. No significant abnormality in the portal veins, mesenteric veins or systemic ve ins. Lymph Nodes: No adenopathy. Peritoneum and Retroperitoneum: No ascites or free air. No significant retroperitoneal abnormality. PELVIS Genitourinary: Marked distention of the urin quinn bladder. No pelvic mass. BODY WALL Soft Tissues: No bowel or inflamed fat containing he rnia, mass or hemorrhage. Bones: No acute fracture or vertebral end plate destruction. No ly tic or blastic lesion. 1. Mild colitis of the splenic flexure and descending colon. 2. Hepatic steatosis. 3. Marke d distention of the urinary bladder. No pelvic mass. Signed by: Trinh Melendez Julie Sign Date/Time: 07/31/2019 10:35 PM PROBLEM LIST Active Problems: Diabetic ketoacidosis without coma associated with type 2 diabetes mellitus HLD (hyperlipidemia) HTN (hypertension) Left upper quadrant pain Mild colitis, acute; splenic flexure and descending colon Resolved Problems: * No resolved hospital problems. * ASSESSMENT & PLAN Acute gastroenteritis with involvement of the colon we will continue IV antibiotics for now Intractable nausea vomiting continue will start him on scheduled Reglan DKA resolved transition to subcutaneous insulin. A1c still pending Hypokalemia hypophosphatemia and hypomagnesemia replace all Code Status: Full Code Pinead Pace MD 08/01/2019 2:20 PM documented in t his encounter Plan of Treatment Not on filedocumented [...] + +--------+ + + + | *TERMED* CA UPPER GI | Routin | 08/06/2019 | | Results for this | | ENDOSCOPY,EXAM | e | 2:32 PM | | procedure are in the | | | | PDT | | results section. | + +--------+ + + + | *TERMED* CA UPPER GI | Routin | 08/06/2019 | [...] + + documented in this encounter Results POC Glucose (08/07/2019 12:20 PM PDT) + + + + + + | Component | Value | Ref Range | Performed | Pathologist | | | | | At | Signature | + + + + + + | Glucose, | 179 (H)Comment: Testing | 65 - 99 mg/dL | [facility] | | | POC | performed at [facility] | | LABORATORY | | | | [address];[place], [place] | | | | | | [address] | | | | + + + + + + + + | Specimen | + + | | + + + + + + + | Performing | Address | City/State/Zipcode | Phone Number | | Organization | | | | + + + + + | [facility] | [address] | [place] [address] | [phone] | + + + + + POC Glucose (08/07/2019 7:47 AM PDT) + + + + + + | Component | Value | Ref Range | Performed | Pathologist | | | | | At | Signature | + + + + + + | Glucose, | 179 (H)Comment: Testing | 65 - 99 mg/dL | [facility] | | | POC | performed at [facility];[address] | | LABORATORY | | | | [address];[place], [place] | | | | | | [address] | | | | + + + + + + + + | Specimen | + + | | + + + + + + + | Performing | Address | City/State/Zipcode | Phone Number | | Organization | | | | + + + + + | [facility] | [address] | [place] [address] | [phone] | + + + + + POC Glucose (08/07/2019 6:26 AM PDT) + + + + + + | Component | Value | Ref Range | Performed | Pathologist | | | | | At | Signature | + + + + + + | Glucose, | 165 (H)Comment: Testing | 65 - 99 mg/dL | [facility] | | | POC | performed at [facility];[address] | | LABORATORY | | | | [address];[place] | | | | | | [address] | | | | + + + + + + + + | Specimen | + + | | + + + + + + + | Performing | Address | City/State/Zipcode | Phone Number | | Organization | | | | + + + + + | [facility] | [address] | [place] [address] | [phone] | + + + + + Basic Metabolic Panel (08/07/2019 4:21 AM PDT) + + + + + [...] | 9.0 | 8.5 - 10.5 | [facility] | | | | | mg/dL | LABORATORY | | + + + + + + | Estimated | >60Comment: GFR <60: | >60 | [facility] | | | GFR | CHRONIC KIDNEY [...] | | | | | | MDRD IDNE traceable | | | | | | equation.Testing | | | | | | performed at [facility] | | | | | | [address];[place], [place] | | | | | | [address] | | | | + + + + + + + + | Specimen | + + | Blood | + + + + + + + | Performing | Address | City/State/Zipcode | Phone Number | | Organization | | | | + + + + + | [facility] | [address] | [place] [address] | [phone] | + + + + + Phosphorus (08/07/2019 4:21 AM PDT) + + + + + + | Component | Value | Ref Range | Performed | Pathologist | | | | | At | Signature | + + + + + + | Phosphorus | 3.2Comment: Testing | 2.3 - 4.8 mg/dL | [facility] | | | | performed at [facility];[address] | | LABORATORY | | | | [address];[place] | | | | | | [address] | | | | + + + + + + + + | Specimen | + + | Blood | + + + + + + + | Performing | Address | City/State/Zipcode | Phone Number | | Organization | | | | + + + + + | [facility] | [address] | [place] [address] | [phone] | + + + + + CBC with Differential (08/07/2019 4:21 AM PDT) + + + + + [...] | | | Absolute | performed at [facility];[address] | [address] | LABORATORY | | | | [facility];[place], [place] | | | | | | [address] | | | | + + + + + + + + | Specimen | + + | Blood | + + + + + + + | Performing | Address | City/State/Zipcode | Phone Number | | Organization | | | | + + + + + | [facility] | [address] | [place] [address] | [phone] | + + + + + POC Glucose (08/06/2019 8:55 PM PDT) + + + + + + | Component | Value | Ref Range | Performed | Pathologist | | | | | At | Signature | + + + + + + | Glucose, | 190 (H)Comment: Testing | 65 - 99 mg/dL | [facility] | | | POC | performed at [facility];[address] | | LABORATORY | | | | [address];[place] | | | | | | [address] | | | | + + + + + + + + | Specimen | + + | | + + + + + + + | Performing | Address | City/State/Zipcode | Phone Number | | Organization | | | | + + + + + | [facility] | [address] | [place] [address] | [phone] | + + + + + [place] Latoya Gaspar (08/06/2019 6:33 PM PDT) + + | Specimen | + + | | + + + + + | Impressions | Performed At | + + + | Sludge seen in the gallbladder lumen without wall thickening or | [facility] | | pericholecystic fluid to suggest cholecystitis. Signed by: | | | Jimmy Goldberg, Keshawn Sign Date/Time: 08/06/2019 7:10 PM | | [...] + + | Tobias, Rad Results In 08/06/2019 7:13 PM PDT | | ULTRASOUND [...] | | | + +---------+ + + POC Glucose (08/06/2019 4:49 PM PDT) + + + + + + | Component | Value | Ref Range | Performed | Pathologist | | | | | At | Signature | + + + + + + | Glucose, | 131 (H)Comment: Testing | 65 - 99 mg/dL | [facility] | | | POC | performed at [facility];[address] | | LABORATORY | | | | [address];[place] | | | | | | [address] | | | | + + + + + + + + | Specimen | + + | | + + + + + + + | Performing | Address | City/State/Zipcode | Phone Number | | Organization | | | | + + + + + | [facility] | [address] | [place] [address] | [phone] | + + + + + POC Glucose (08/06/2019 3:21 PM PDT) + + + + + + | Component | Value | Ref Range | Performed | Pathologist | | | | | At | Signature | + + + + + + | Glucose, | 123 (H)Comment: Testing | 65 - 99 mg/dL | [facility] | | | POC | performed at [facility];[address] | | LABORATORY | | | | [address];[place], [place] | | | | | | [address] | | | | + + + + + + + + | Specimen | + + | | + + + + + + + | Performing | Address | City/State/Zipcode | Phone Number | | Organization | | | | + + + + + | [facility] | [address] | [place] [address] | [phone] | + + + + + EGD (08/06/2019 2:32 PM PDT) + + | Specimen | + + | | + + + + + | Narrative | Performed At | + + + | [facility]erged With [facility] | [facility] | | [facility] | [facility] | | [facility] | | | Patient Name: Minerva Rodriguez , | | | [place] Procedure Date: 08/06/2019 2:32 PMMRN: [id number] | | | of : | | [...] | 08/06/2019 2:32 PMNumber of Addenda: 0 [facility] | | | Center | | | - Continue present medications. | | | | | | | | |Tran Vidal MD | | |08/06/2019 3:02:25 PM | | |This report has been signed electronically. | | | | | |Note Initiated On: 08/06/2019 2:32 PM | | |Number of Addenda: 0 | | | | | | [facility] | | + + + + +---------+ + + | Performing | Address | City/State/Un[facility] Hospital[facility] | Phone Number | | Organization | | | | + +---------+ + + | [facility] | | | | + +---------+ + + EGD (08/06/2019 2:27 PM PDT) + + + | Narrative | Performed At | + + + | Tran Vidal MD 08/06/2019 2:56 PM [facility] | [facility] | | [facility] Procedure: EGD | [facility] | | [...] | | | | | performed at [facility];[address] | | | | | | [address];[place] | | | | | | [address] | | | | + + + [...] | + + + + + | [facility] | [address] | [place] [address] | [phone] | + + + + + POC Glucose (08/06/2019 11:55 AM PDT) + + + + + + | Component | Value | Ref Range | Performed | Pathologist | | | | | At | Signature | + + + + + + | Glucose, | 166 (H)Comment: Testing | 65 - 99 mg/dL | [facility] | | | POC | performed at [facility];[address] | | LABORATORY | | | | [address];[place] | | | | | | [address] | | | | + + + + + + + + | Specimen | + + | | + + + + + + + | Performing | Address | City/State/Zipcode | Phone Number | | Organization | | | | + + + + + | [facility] | [address] | [place] [address] | [phone] | + + + + + POC Glucose (08/06/2019 9:29 AM PDT) + + + + + + | Component | Value | Ref Range | Performed | Pathologist | | | | | At | Signature | + + + + + + | Glucose, | 180 (H)Comment: Testing | 65 - 99 mg/dL | [facility] | | | POC | performed at [facility];[address] | | LABORATORY | | | | [address];[place] | | | | | | [address] | | | | + + + + + + + + | Specimen | + + | | + + + + + + + | Performing | Address | City/State/Zipcode | Phone Number | | Organization | | | | + + + + + | [facility] | [address] | [place] [address] | [phone] | + + + + + POC Glucose (08/06/2019 8:03 AM PDT) + + + + + + | Component | Value | Ref Range | Performed | Pathologist | | | | | At | Signature | + + + + + + | Glucose, | 186 (H)Comment: Testing | 65 - 99 mg/dL | [facility] | | | POC | performed at [facility];[address] | | LABORATORY | | | | [address];[place] | | | | | | [address] | | | | + + + + + + + + | Specimen | + + | | + + + + + + + | Performing | Address | City/State/Zipcode | Phone Number | | Organization | | | | + + + + + | [facility] | [address] | [place] [address] | [phone] | + + + + + Basic Metabolic Panel (08/06/2019 4:23 AM PDT) + + + + + + | Component | Value | Ref Range | Performed | Pathologist | | | | | At | Signature | + + + + + + | Na | 139 | 135 - 145 | [facility] | | | | | mmol/L | LABORATORY | | + + + + + + | K | 3.4 (L) | 3.5 - 4.9 | [facility] | | | | | mmol/L | LABORATORY | | + + + + + + | Cl | 99 | 99 - 109 mmol/L | [facility] | | | | | | LABORATORY | | + + + + + + | CO2 | 25 | 23 - 32 mmol/L | [facility] | | | | | | LABORATORY | | + + + + + + | Anion Gap | 18 | 5 - 20 mmol/L | [facility] | | | | | | LABORATORY | | + + + + + + | Glucose | 203 (H) | 65 - 99 mg/dL | [facility] | | | | | | LABORATORY | | + + + + + + | BUN | 10 | 8 - 25 mg/dL | [facility] | | | | | | LABORATORY | | + + + + + + | Creatinine | 0.81 | 0.70 - 1.30 | [facility] | | | | | mg/dL | LABORATORY | | + + + + + + | BUN/Creatin | 12 | | [facility] | | | ine Ratio | | | LABORATORY | | + + + + + + | Calcium | 9.1 | 8.5 - 10.5 | [facility] | | | | | mg/dL | LABORATORY | | + + + + + + | Estimated | >60Comment: GFR <60: | >60 | [facility] | | | GFR | CHRONIC KIDNEY [...] | | | | | | MDRD IDMS traceable | | | | | | equation.Testing | | | | | | performed at [facility];[address] | | | | | | [address];[place] | | | | | | [address] | | | | + + + + + + + + | Specimen | + + | Blood | + + + + + + + | Performing | Address | City/State/Zipcode | Phone Number | | Organization | | | | + + + + + | [facility] | [address] | [place] [address] | [phone] | + + + + + Phosphorus (08/06/2019 4:23 AM PDT) + + + + + + | Component | Value | Ref Range | Performed | Pathologist | | | | | At | Signature | + + + + + + | Phosphorus | 2.7Comment: Testing | 2.3 - 4.8 mg/dL | [facility] | | | | performed at [facility] | | LABORATORY | | | | [facility];[place], [place] | | | | | | [address] | | | | + + + + + + + + | Specimen | + + | Blood | + + + + + + + | Performing | Address | City/State/Zipcode | Phone Number | | Organization | | | | + + + + + | [facility] | [address] | [place] [address] | [phone] | + + + + + CBC with Differential (08/06/2019 4:23 AM PDT) + + + + + + | Component | Value | Ref Range | Performed | Pathologist | | | | | At | Signature | + + + + + + | WBC | 6.63 | 3.80 - 11.00 | [facility] | | | | | K/uL | LABORATORY | | + + + + + + | RBC | 4.42 | 4.20 - 5.70 | [facility] | | | | | M/uL | LABORATORY | | + + + + + + | Hemoglobin | 13.4 | 13.2 - 17.0 | [facility] | | | | | g/dL | LABORATORY | | + + + + + + | Hematocrit | 38.9 (L) | 39.0 - 50.0 % | [facility] | | | | | | LABORATORY | | + + + + + + | MCV | 88.0 | 80.0 - 100.0 fl | [facility] | | | | | | LABORATORY | | + + + + + + | MCH | 30.3 | 27.0 - 34.0 pg | [facility] | | | | | | LABORATORY | | + + + + + + | MCHC | 34.4 | 32.0 - 35.5 | [facility] | | | | | g/dL | LABORATORY | | + + + + + + | RDW-SD | 37.5 | 37 - 53 fl | [facility] | | | | | | LABORATORY | | + + + + + + | Platelet | 304 | 150 - 400 K/uL | [facility] | | | Count | | | LABORATORY | | + + + + + + | MPV | 8.7Comment: NO NORMAL | fl | [facility] | [...] + + + + | % | 62.50 | % | [facility] | | | Neutrophils | | | LABORATORY | | + + + + + + | IMMATURE | 0.30 | % | [facility] | | | GRANULOCYTE | | | LABORATORY | | + + + + + + | % | 25.20 | % | [facility] | | | Lymphocytes | | | LABORATORY | | + + + + + + | Monocyte % | 11.30 | % | [facility] | | | | | | LABORATORY | | + + + + + + | Eosinophils | 0.20 | % | [facility] | | | % | | | LABORATORY | | + + + + + + | Basophils % | 0.50 | % | [facility] | | | | | | LABORATORY | | + + + + + + | Neutrophils | 4.15 | 1.90 - 7.40 | [facility] | | | , Absolute | | K/uL | LABORATORY | | + + + + + + | IMMATURE | 0.02Comment: NOTE NEW | 0.00 - 0.07 | [facility] | | | GRANS AB | REFERENCE RANGE | K/uL | LABORATORY | | + + + + + + | Absolute | 1.67 | 1.00 - 3.90 | [facility] | | | Lymphocytes | | K/uL | LABORATORY | | + + + + + + | Absolute | 0.75 | 0.00 - 0.80 | [facility] | | | Monocytes | | K/uL | LABORATORY | | + + + + + + | Eosinophils | 0.01 | 0.00 - 0.50 | [facility] | | | , Absolute | | K/uL | LABORATORY | | + + + + + + | Basophils, | 0.03Comment: Testing | 0.00 - 0.10 | [facility] | | | Absolute | performed at [facility];[address] | K/uL | LABORATORY | | | | [address];[place] | | | | | | [address] | | | | + + + + + + + + | Specimen | + + | Blood | + + + + + + + | Performing | Address | City/State/Zipcode | Phone Number | | Organization | | | | + + + + + | [facility] | [address] [facility] | [place] [address] | [phone] | + + + + + POC Glucose (08/05/2019 9:11 PM PDT) + + + + + + | Component | Value | Ref Range | Performed | Pathologist | | | | | At | Signature | + + + + + + | Glucose, | 139 (H)Comment: Testing | 65 - 99 mg/dL | [facility] | | | POC | performed at [facility];[address] | | LABORATORY | | | | [address];[place], [place] | | | | | | [address] | | | | + + + + + + + + | Specimen | + + | | + + + + + + + | Performing | Address | City/State/Zipcode | Phone Number | | Organization | | | | + + + + + | [facility] | [address] | [place] [address] | [phone] | + + + + + POC Glucose (08/05/2019 5:47 PM PDT) + + + + + + | Component | Value | Ref Range | Performed | Pathologist | | | | | At | Signature | + + + + + + | Glucose, | 185 (H)Comment: Testing | 65 - 99 mg/dL | [facility] | | | POC | performed at [facility];[address] | | LABORATORY | | | | [address];[place] | | | | | | [address] | | | | + + + + + + + + | Specimen | + + | | + + + + + + + | Performing | Address | City/State/Zipcode | Phone Number | | Organization | | | | + + + + + | [facility] | [address] | [place] [address] | [phone] | + + + + + Potassium (08/05/2019 3:11 PM PDT) + + + + + + | Component | Value | Ref Range | Performed | Pathologist | | | | | At | Signature | + + + + + + | K | 3.0 (L)Comment: Testing | 3.5 - 4.9 | [facility] | | | | performed at [facility];[address] | mmol/L | LABORATORY | | | | [address];[place] | | | | | | [address] | | | | + + + + + + + + | Specimen | + + | Blood | + + + + + + + | Performing | Address | City/State/Zipcode | Phone Number | | Organization | | | | + + + + + | [facility] | [address] | [place] [address] | [phone] | + + + + + POC Glucose (08/05/2019 11:50 AM PDT) + + + + + + | Component | Value | Ref Range | Performed | Pathologist | | | | | At | Signature | + + + + + + | Glucose, | 184 (H)Comment: Testing | 65 - 99 mg/dL | [facility] | | | POC | performed at [facility];[address] | | LABORATORY | | | | [address];[place], [place] | | | | | | [address] | | | | + + + + + + + + | Specimen | + + | | + + + + + + + | Performing | Address | City/State/Zipcode | Phone Number | | Organization | | | | + + + + + | [facility] | [address] | [place] [address] | [phone] | + + + + + CT [...] *Incidental findings as detailed above. Signed by: Jackelin, | | | Trinh Papomaicol Sign Date/Time: 08/05/2019 11:38 AM | | + [...] | | | + +---------+ + + POC Glucose (08/05/2019 7:35 AM PDT) + + + + + + | Component | Value | Ref Range | Performed | Pathologist | | | | | At | Signature | + + + + + + | Glucose, | 188 (H)Comment: Testing | 65 - 99 mg/dL | [facility] | | | POC | performed at [facility];[address] | | LABORATORY | | | | [address];[place], [place] | | | | | | [address] | | | | + + + + + + + + | Specimen | + + | | + + + + + + + | Performing | Address | City/State/Zipcode | Phone Number | | Organization | | | | + + + + + | [facility] | [address] | [place] [address] | [phone] | + + + + + Basic Metabolic Panel (08/05/2019 4:37 AM PDT) + + + + + + | Component | Value | Ref Range | Performed | Pathologist | | | | | At | Signature | + + + + + + | Na | 137 | 135 - 145 | [facility] | | | | | mmol/L | LABORATORY | | + + + + + + | K | 3.5 | 3.5 - 4.9 | [facility] | | | | | mmol/L | LABORATORY | | + + + + + + | Cl | 101 | 99 - 109 mmol/L | [facility] | | | | | | LABORATORY | | + + + + + + | CO2 | 28 | 23 - 32 mmol/L | [facility] | | | | | | LABORATORY | | + + + + + + | Anion Gap | 12 | 5 - 20 mmol/L | [facility] | | | | | | LABORATORY | | + + + + + + | Glucose | 187 (H) | 65 - 99 mg/dL | [facility] | | | | | | LABORATORY | | + + + + + + | BUN | 15 | 8 - 25 mg/dL | [facility] | | | | | | LABORATORY | | + + + + + + | Creatinine | 0.7 | 0.70 - 1.30 | [facility] | | | | | mg/dL | LABORATORY | | + + + + + + | BUN/Creatin | 21 | | [facility] | | | ine Ratio | | | LABORATORY | | + + + + + + | Calcium | 8.5 | 8.5 - 10.5 | [facility] | | | | | mg/dL | LABORATORY | | + + + + + + | Estimated | >60Comment: GFR <60: | >60 | [facility] | | | GFR | CHRONIC KIDNEY [...] | | | | | | MDRD IDNE traceable | | | | | | equation.Testing | | | | | | performed at [facility], [address] | | | | | | [facility], | | | | | | [place] [address] | | | | + + + + + + + + | Specimen | + + | Blood | + + + + + + + | Performing | Address | City/State/Zipcode | Phone Number | | Organization | | | | + + + + + | [facility] | [address] | [place] [address] | [phone] | + + + + + Phosphorus (08/05/2019 4:37 AM PDT) + + + + + + | Component | Value | Ref Range | Performed | Pathologist | | | | | At | Signature | + + + + + + | Phosphorus | 2.2 (L)Comment: Testing | 2.3 - 4.8 mg/dL | [facility] | | | | performed at [facility], [address] | | LABORATORY | | | | [address], | | | | | | [place] [address] | | | | + + + + + + + + | Specimen | + + | Blood | + + + + + + + | Performing | Address | City/State/Zipcode | Phone Number | | Organization | | | | + + + + + | [facility] | [address] | [place] [address] | [phone] | + + + + + CBC with Differential (08/05/2019 4:37 AM PDT) + + + + + + | Component | Value | Ref Range | Performed | Pathologist | | | | | At | Signature | + + + + + + | WBC | 5.15 | 3.80 - 11.00 | [facility] | | | | | K/uL | LABORATORY | | + + + + + + | RBC | 4.27 | 4.20 - 5.70 | [facility] | | | | | M/uL | LABORATORY | | + + + + + + | Hemoglobin | 12.8 (L) | 13.2 - 17.0 | [facility] | | | | | g/dL | LABORATORY | | + + + + + + | Hematocrit | 37.3 (L) | 39.0 - 50.0 % | [facility] | | | | | | LABORATORY | | + + + + + + | MCV | 87.4 | 80.0 - 100.0 fl | [facility] | | | | | | LABORATORY | | + + + + + + | MCH | 30.0 | 27.0 - 34.0 pg | [facility] | | | | | | LABORATORY | | + + + + + + | MCHC | 34.3 | 32.0 - 35.5 | [facility] | | | | | g/dL | LABORATORY | | + + + + + + | RDW-SD | 37.6 | 37 - 53 fl | [facility] | | | | | | LABORATORY | | + + + + + + | Platelet | 283 | 150 - 400 K/uL | [facility] | | | Count | | | LABORATORY | | + + + + + + | MPV | 9.7Comment: NO NORMAL | fl | [facility] | [...] + + + + | % | 49.30 | % | [facility] | | | Neutrophils | | | LABORATORY | | + + + + + + | IMMATURE | 0.40 | % | [facility] | | | GRANULOCYTE | | | LABORATORY | | + + + + + + | % | 33.80 | % | [facility] | | | Lymphocytes | | | LABORATORY | | + + + + + + | Monocyte % | 15.70 | % | [facility] | | | | | | LABORATORY | | + + + + + + | Eosinophils | 0.60 | % | [facility] | | | % | | | LABORATORY | | + + + + + + | Basophils % | 0.20 | % | [facility] | | | | | | LABORATORY | | + + + + + + | Neutrophils | 2.54 | 1.90 - 7.40 | [facility] | | | , Absolute | | K/uL | LABORATORY | | + + + + + + | IMMATURE | 0.02Comment: NOTE NEW | 0.00 - 0.07 | [facility] | | | GRANS AB | REFERENCE RANGE | K/uL | LABORATORY | | + + + + + + | Absolute | 1.74 | 1.00 - 3.90 | [facility] | | | Lymphocytes | | K/uL | LABORATORY | | + + + + + + | Absolute | 0.81 (H) | 0.00 - 0.80 | [facility] | | | Monocytes | | K/uL | LABORATORY | | + + + + + + | Eosinophils | 0.03 | 0.00 - 0.50 | [facility] | | | , Absolute | | K/uL | LABORATORY | | + + + + + + | Basophils, | 0.01Comment: Testing | 0.00 - 0.10 | [facility] | | | Absolute | performed at [facility], [address] | K/uL | LABORATORY | | | | [facility] [address], | | | | | | [place] [address] | | | | + + + + + + + + | Specimen | + + | Blood | + + + + + + + | Performing | Address | City/State/Zipcode | Phone Number | | Organization | | | | + + + + + | [facility] | [address] | [place] [address] | [phone] | + + + + + POC Glucose (08/04/2019 9:14 PM PDT) + + + + + + | Component | Value | Ref Range | Performed | Pathologist | | | | | At | Signature | + + + + + + | Glucose, | 173 (H)Comment: Testing | 65 - 99 mg/dL | [facility] | | | POC | performed at [facility];[address] | | LABORATORY | | | | [address];[place], [place] | | | | | | [address] | | | | + + + + + + + + | Specimen | + + | | + + + + + + + | Performing | Address | City/State/Zipcode | Phone Number | | Organization | | | | + + + + + | [facility] | [address] | [place] [address] | [phone] | + + + + + Potassium (08/04/2019 8:51 PM PDT) + + + + + + | Component | Value | Ref Range | Performed | Pathologist | | | | | At | Signature | + + + + + + | K | 3.0 (L)Comment: Testing | 3.5 - 4.9 | [facility] | | | | performed at [facility];[address] | mmol/L | LABORATORY | | | | [address];[place], [place] | | | | | | [address] | | | | + + + + + + + + | Specimen | + + | Blood | + + + + + + + | Performing | Address | City/State/Zipcode | Phone Number | | Organization | | | | + + + + + | [facility] | [address] | [place] [address] | [phone] | + + + + + POC Glucose (08/04/2019 5:22 PM PDT) + + + + + + | Component | Value | Ref Range | Performed | Pathologist | | | | | At | Signature | + + + + + + | Glucose, | 151 (H)Comment: Testing | 65 - 99 mg/dL | [facility] | | | POC | performed at [facility];[address] | | LABORATORY | | | | [address];[place], [place] | | | | | | [address] | | | | + + + + + + + + | Specimen | + + | | + + + + + + + | Performing | Address | City/State/Zipcode | Phone Number | | Organization | | | | + + + + + | [facility] | [address] | [place] [address] | [phone] | + + + + + Potassium (08/04/2019 1:56 PM PDT) + + + + + + | Component | Value | Ref Range | Performed | Pathologist | | | | | At | Signature | + + + + + + | K | 3.0 (L)Comment: Testing | 3.5 - 4.9 | [facility] | | | | performed at [facility];[address] | mmol/L | LABORATORY | | | | [address];[place] | | | | | | [address] | | | | + + + + + + + + | Specimen | + + | Blood | + + + + + + + | Performing | Address | City/State/Zipcode | Phone Number | | Organization | | | | + + + + + | [facility] | [address] | [place] [address] | [phone] | + + + + + POC Glucose (08/04/2019 11:56 AM PDT) + + + + + + | Component | Value | Ref Range | Performed | Pathologist | | | | | At | Signature | + + + + + + | Glucose, | 224 (H)Comment: Testing | 65 - 99 mg/dL | [facility] | | | POC | performed at [facility];[address] | | LABORATORY | | | | [address];[place] | | | | | | [address] | | | | + + + + + + + + | Specimen | + + | | + + + + + + + | Performing | Address | City/State/Zipcode | Phone Number | | Organization | | | | + + + + + | [facility] | [address] | [place] [address] | [phone] | + + + + + POC Glucose (08/04/2019 8:03 AM PDT) + + + + + + | Component | Value | Ref Range | Performed | Pathologist | | | | | At | Signature | + + + + + + | Glucose, | 214 (H)Comment: Testing | 65 - 99 mg/dL | [facility] | | | POC | performed at [facility];[address] | | LABORATORY | | | | [address];[place] | | | | | | [address] | | | | + + + + + + + + | Specimen | + + | | + + + + + + + | Performing | Address | City/State/Zipcode | Phone Number | | Organization | | | | + + + + + | [facility] | [address] | [place] [address] | [phone] | + + + + + Phosphorus (08/04/2019 5:35 AM PDT) + + + + + + | Component | Value | Ref Range | Performed | Pathologist | | | | | At | Signature | + + + + + + | Phosphorus | 3.4Comment: Testing | 2.3 - 4.8 mg/dL | [facility] | | | | performed at [facility], [address] | | LABORATORY | | | | [address], | | | | | | [place] [address] | | | | + + + + + + + + | Specimen | + + | Blood | + + + + + + + | Performing | Address | City/State/Zipcode | Phone Number | | Organization | | | | + + + + + | [facility] | [address] | [place] [address] | [phone] | + + + + + CBC with Differential (08/04/2019 5:35 AM PDT) + + + + + + | Component | Value | Ref Range | Performed | Pathologist | | | | | At | Signature | + + + + + + | WBC | 5.68 | 3.80 - 11.00 | [facility] | | | | | K/uL | LABORATORY | | + + + + + + | RBC | 4.39 | 4.20 - 5.70 | [facility] | | | | | M/uL | LABORATORY | | + + + + + + | Hemoglobin | 13.3 | 13.2 - 17.0 | [facility] | | | | | g/dL | LABORATORY | | + + + + + + | Hematocrit | 38.0 (L) | 39.0 - 50.0 % | [facility] | | | | | | LABORATORY | | + + + + + + | MCV | 86.6 | 80.0 - 100.0 fl | [facility] | | | | | | LABORATORY | | + + + + + + | MCH | 30.3 | 27.0 - 34.0 pg | [facility] | | | | | | LABORATORY | | + + + + + + | MCHC | 35.0 | 32.0 - 35.5 | [facility] | | | | | g/dL | LABORATORY | | + + + + + + | RDW-SD | 37.6 | 37 - 53 fl | [facility] | | | | | | LABORATORY | | + + + + + + | Platelet | 299 | 150 - 400 K/uL | [facility] | | | Count | | | LABORATORY | | + + + + + + | MPV | 9.5Comment: NO NORMAL | fl | [facility] | [...] + + + + | % | 51.30 | % | [facility] | | | Neutrophils | | | LABORATORY | | + + + + + + | IMMATURE | 0.40 | % | [facility] | | | GRANULOCYTE | | | LABORATORY | | + + + + + + | % | 35.00 | % | [facility] | | | Lymphocytes | | | LABORATORY | | + + + + + + | Monocyte % | 12.90 | % | [facility] | | | | | | LABORATORY | | + + + + + + | Eosinophils | 0.20 | % | [facility] | | | % | | | LABORATORY | | + + + + + + | Basophils % | 0.20 | % | [facility] | | | | | | LABORATORY | | + + + + + + | Neutrophils | 2.92 | 1.90 - 7.40 | [facility] | | | , Absolute | | K/uL | LABORATORY | | + + + + + + | IMMATURE | 0.02Comment: NOTE NEW | 0.00 - 0.07 | [facility] | | | GRANS AB | REFERENCE RANGE | K/uL | LABORATORY | | + + + + + + | Absolute | 1.99 | 1.00 - 3.90 | [facility] | | | Lymphocytes | | K/uL | LABORATORY | | + + + + + + | Absolute | 0.73 | 0.00 - 0.80 | [facility] | | | Monocytes | | K/uL | LABORATORY | | + + + + + + | Eosinophils | 0.01 | 0.00 - 0.50 | [facility] | | | , Absolute | | K/uL | LABORATORY | | + + + + + + | Basophils, | 0.01Comment: Testing | 0.00 - 0.10 | [facility] | | | Absolute | performed at [facility], [address] | K/uL | LABORATORY | | | | [address], | | | | | | [place] [address] | | | | + + + + + + + + | Specimen | + + | Blood | + + + + + + + | Performing | Address | City/State/Zipcode | Phone Number | | Organization | | | | + + + + + | [facility] | [address] | [place] [address] | [phone] | + + + + + Comprehensive Metabolic Panel (08/04/2019 5:35 AM PDT) + + + + + + | Component | Value | Ref Range | Performed | Pathologist | | | | | At | Signature | + + + + + + | Na | 133 (L) | 135 - 145 | [facility] | | | | | mmol/L | LABORATORY | | + + + + + + | K | 2.7 (LL)Comment: RESULT | 3.5 - 4.9 | [facility] | | | | READ BACK BY:ONEIDA Richardson ON | mmol/L | LABORATORY | | | | [place] [facility] [place] 08/04/2019 | | | | | | @ 0648. [facility] | | | | | | | [...] 46 | 10 - 65 U/L | [facility] | | | | | | LABORATORY | | + + + + + + | Estimated | >60Comment: GFR <60: | >60 | [facility] | | | GFR | CHRONIC KIDNEY [...] | | | | | | MDRD IDMS traceable | | | | | | equation.Testing | | | | | | performed at [facility], [address] | | | | | [facility], | | | | | | [place] [address] | | | | + + + + + + + + | Specimen | + + | Blood | + + + + + + + | Performing | Address | City/State/Zipcode | Phone Number | | Organization | | | | + + + + + | [facility] | [address] | [place] [address] | [phone] | + + + + + Magnesium (08/04/2019 5:35 AM PDT) + + + + + + | Component | Value | Ref Range | Performed | Pathologist | | | | | At | Signature | + + + + + + | Magnesium | 2.3Comment: Testing | 1.7 - 2.4 mg/dL | [facility] | | | | performed at [facility], [address] | LABORATORY | | | | [address], | | | | | | [place] [address] | | | | + + + + + + + + | Specimen | + + | Blood | + + + + + + + | Performing | Address | City/State/Zipcode | Phone Number | | Organization | | | | + + + + + | [facility] | [address] | [place] [address] | [phone] | + + + + + POC Glucose (08/03/2019 8:44 PM PDT) + + + + + + | Component | Value | Ref Range | Performed | Pathologist | | | | | At | Signature | + + + + + + | Glucose, | 160 (H)Comment: Testing | 65 - 99 mg/dL | [facility] | | | POC | performed at [facility] [place] | | LABORATORY | | | | [address];[place] | | | | | | [address] | | | | + + + + + + + + | Specimen | + + | | + + + + + + + | Performing | Address | City/State/Zipcode | Phone Number | | Organization | | | | + + + + + | [facility] | [address] [facility] | [place] [address] | [phone] | + + + + + POC Glucose (08/03/2019 4:25 PM PDT) + + + + + + | Component | Value | Ref Range | Performed | Pathologist | | | | | At | Signature | + + + + + + | Glucose, | 138 (H)Comment: Testing | 65 - 99 mg/dL | [facility] | | | POC | performed at [facility] [place];[address] | LABORATORY | | [address];[place] | | | | | | [address] | | | | + + + + + + + + | Specimen | + + | | + + + + + + + | Performing | Address | City/State/Zipcode | Phone Number | | Organization | | | | + + + + + | [facility] | [address] | [place] [address] | [phone] | + + + + + POC Glucose (08/03/2019 11:44 AM PDT) + + + + + + | Component | Value | Ref Range | Performed | Pathologist | | | | | At | Signature | + + + + + + | Glucose, | 135 (H)Comment: Testing | 65 - 99 mg/dL | [facility] | | | POC | performed at [facility] [place];[address] | | LABORATORY | | | | [address];[place] | | | | | | [address] | | | | + + + + + + + + | Specimen | + + | | + + + + + + + | Performing | Address | City/State/Zipcode | Phone Number | | Organization | | | | + + + + + | [facility] | [address] | [place] [address] | [phone] | + + + + + POC Glucose (08/03/2019 7:29 AM PDT) + + + + + + | Component | Value | Ref Range | Performed | Pathologist | | | | | At | Signature | + + + + + + | Glucose, | 186 (H)Comment: Testing | 65 - 99 mg/dL | [facility] | | | POC | performed at [facility];[address] | | LABORATORY | | | | [address];[place], [place] | | | | | | [address] | | | | + + + + + + + + | Specimen | + + | | + + + + + + + | Performing | Address | City/State/Zipcode | Phone Number | | Organization | | | | + + + + + | [facility] | [address] | [place] [address] | [phone] | + + + + + Phosphorus (08/03/2019 5:43 AM PDT) + + + + + + | Component | Value | Ref Range | Performed | Pathologist | | | | | At | Signature | + + + + + + | Phosphorus | 2.4Comment: Testing | 2.3 - 4.8 mg/dL | [facility] | | | | performed at [facility], [address] | | LABORATORY | | | | [address], | | | | | | [place] [address] | | | | + + + + + + + + | Specimen | + + | Blood | + + + + + + + | Performing | Address | City/State/Zipcode | Phone Number | | Organization | | | | + + + + + | [facility] | [address] | [place] [address] | [phone] | + + + + + CBC with Differential (08/03/2019 5:43 AM PDT) + + + + + + | Component | Value | Ref Range | Performed | Pathologist | | | | | At | Signature | + + + + + + | WBC | 7.06 | 3.80 - 11.00 | [facility] | | | | | K/uL | LABORATORY | | + + + + + + | RBC | 4.13 (L) | 4.20 - 5.70 | [facility] | | | | | M/uL | LABORATORY | | + + + + + + | Hemoglobin | 12.5 (L) | 13.2 - 17.0 | [facility] | | | | | g/dL | LABORATORY | | + + + + + + | Hematocrit | 35.5 (L) | 39.0 - 50.0 % | [facility] | | | | | | LABORATORY | | + + + + + + | MCV | 86.0 | 80.0 - 100.0 fl | [facility] | | | | | | LABORATORY | | + + + + + + | MCH | 30.3 | 27.0 - 34.0 pg | [facility] | | | | | | LABORATORY | | + + + + + + | MCHC | 35.2 | 32.0 - 35.5 | [facility] | | | | | g/dL | LABORATORY | | + + + + + + | RDW-SD | 36.0 (L) | 37 - 53 fl | [facility] | | | | | | LABORATORY | | + + + + + + | Platelet | 275 | 150 - 400 K/uL | [facility] | | | Count | | | LABORATORY | | + + + + + + | MPV | 9.5Comment: NO NORMAL | fl | [facility] | [...] + + + + | % | 54.40 | % | [facility] | | | Neutrophils | | | LABORATORY | | + + + + + + | IMMATURE | 0.30 | % | [facility] | | | GRANULOCYTE | | | LABORATORY | | + + + + + + | % | 33.00 | % | [facility] | | | Lymphocytes | | | LABORATORY | | + + + + + + | Monocyte % | 11.90 | % | [facility] | | | | | | LABORATORY | | + + + + + + | Eosinophils | 0.10 | % | [facility] | | | % | | | LABORATORY | | + + + + + + | Basophils % | 0.30 | % | [facility] | | | | | | LABORATORY | | + + + + + + | Neutrophils | 3.84 | 1.90 - 7.40 | [facility] | | | , Absolute | | K/uL | LABORATORY | | + + + + + + | IMMATURE | 0.02Comment: NOTE NEW | 0.00 - 0.07 | [facility] | | | GRANS AB | REFERENCE RANGE | K/uL | LABORATORY | | + + + + + + | Absolute | 2.33 | 1.00 - 3.90 | [facility] | | | Lymphocytes | | K/uL | LABORATORY | | + + + + + + | Absolute | 0.84 (H) | 0.00 - 0.80 | [facility] | | | Monocytes | | K/uL | LABORATORY | | + + + + + + | Eosinophils | 0.01 | 0.00 - 0.50 | [facility] | | | , Absolute | | K/uL | LABORATORY | | + + + + + + | Basophils, | 0.02Comment: Testing | 0.00 - 0.10 | [facility] | | | Absolute | performed at [facility], [address] | K/uL | LABORATORY | | | | [address], | | | | | | [place] [address] | | | | + + + + + + + + | Specimen | + + | Blood | + + + + + + + | Performing | Address | City/State/Zipcode | Phone Number | | Organization | | | | + + + + + | [facility] | [address] | [place] [address] | [phone] | + + + + + Comprehensive Metabolic Panel (08/03/2019 5:43 AM PDT) + + + + + + | Component | Value | Ref Range | Performed | Pathologist | | | | | At | Signature | + + + + + + | Na | 133 (L) | 135 - 145 | [facility] | | | | | mmol/L | LABORATORY | | + + + + + + | K | 2.6 (LL)Comment: RESULT | 3.5 - 4.9 | [facility] | | | | READ BACK BY:EMMA Parker | mmol/L | LABORATORY | | | | 08/03/19 [id number] | | | | | |EMMA Parker 08/03/19 [id number] | | | | | | | | | | + + + + + + | Cl | 96 (L) | 99 - 109 mmol/L | [facility] | | | | | | LABORATORY | | + + + + + + | CO2 | 28 | 23 - 32 mmol/L | [facility] | | | | | | LABORATORY | | + + + + + + | Anion Gap | 12 | 5 - 20 mmol/L | [facility] | | | | | | LABORATORY | | + + + + + + | Glucose | 186 (H) | 65 - 99 mg/dL | [facility] | | | | | | LABORATORY | | + + + + + + | BUN | 7 (L) | 8 - 25 mg/dL | [facility] | | | | | | LABORATORY | | + + + + + + | Creatinine | 0.6 (L) | 0.70 - 1.30 | [facility] | | | | | mg/dL | LABORATORY | | + + + + + + | BUN/Creatin | 12 | | [facility] | | | ine Ratio | | | LABORATORY | | + + + + + + | Calcium | 7.9 (L) | 8.5 - 10.5 | [facility] | | | | | mg/dL | LABORATORY | | + + + + + + | Protein, | 7.1 | 6.3 - 8.2 g/dL | [facility] | | | Total | | | LABORATORY | | + + + + + + | Albumin | 3.2 (L) | 3.6 - 5.0 g/dL | [...] + + + + | BILIRUBIN, | 1.2 | 0.1 - 1.5 mg/dL | [facility] | | | TOTAL | | | LABORATORY | | + + + + + + | ALK PHOS | 75 | 35 - 115 U/L | [facility] | | | | | | LABORATORY | | + + + + + + | AST | 23 | 10 - 45 U/L | [facility] | | | | | | LABORATORY | | + + + + + + | ALT | 47 | 10 - 65 U/L | [facility] | | | | | | LABORATORY | | + + + + + + | Estimated | >60Comment: GFR <60: | >60 | [facility] | | | GFR | CHRONIC KIDNEY [...] | | | | | | MDRD IDNE traceable | | | | | | equation.Testing | | | | | | performed at [facility], [address] | | | | | | [facility], | | | | | | [place] [address] | | | | + + + + + + + + | Specimen | + + | Blood | + + + + + + + | Performing | Address | City/State/Zipcode | Phone Number | | Organization | | | | + + + + + | [facility] | [address] | [place] [address] | [phone] | + + + + + Magnesium (08/03/2019 5:43 AM PDT) + + + + + + | Component | Value | Ref Range | Performed | Pathologist | | | | | At | Signature | + + + + + + | Magnesium | 2.3Comment: Testing | 1.7 - 2.4 mg/dL | [facility] | | | | performed at [facility], [address] | | LABORATORY | | | | [address] [facility], | | | | | | [place] [address] | | | | + + + + + + + + | Specimen | + + | Blood | + + + + + + + | Performing | Address | City/State/Zipcode | Phone Number | | Organization | | | | + + + + + | [facility] | [address] | [place] [address] | [phone] | + + + + + POC Glucose (08/02/2019 8:59 PM PDT) + + + + + + | Component | Value | Ref Range | Performed | Pathologist | | | | | At | Signature | + + + + + + | Glucose, | 144 (H)Comment: Testing | 65 - 99 mg/dL | [facility] | | | POC | performed at [facility];[address] | | LABORATORY | | | | [address];[place] | | | | | | [address] | | | | + + + + + + + + | Specimen | + + | | + + + + + + + | Performing | Address | City/State/Zipcode | Phone Number | | Organization | | | | + + + + + | [facility] | [address] | [place] [address] | [phone] | + + + + + POC Glucose (08/02/2019 3:58 PM PDT) + + + + + + | Component | Value | Ref Range | Performed | Pathologist | | | | | At | Signature | + + + + + + | Glucose, | 120 (H)Comment: Testing | 65 - 99 mg/dL | [facility] | | | POC | performed at [facility];[address] | | LABORATORY | | | | [address];[place] | | | | | | [address] | | | | + + + + + + + + | Specimen | + + | | + + + + + + + | Performing | Address | City/State/Zipcode | Phone Number | | Organization | | | | + + + + + | [facility] | [address] | [place] [address] | [phone] | + + + + + POC Glucose (08/02/2019 12:51 PM PDT) + + + + + + | Component | Value | Ref Range | Performed | Pathologist | | | | | At | Signature | + + + + + + | Glucose, | 153 (H)Comment: Testing | 65 - 99 mg/dL | [facility] | | | POC | performed at [facility];[address] | | LABORATORY | | | | [address];[place], [place] | | | | | | [address] | | | | + + + + + + + + | Specimen | + + | | + + + + + + + | Performing | Address | City/State/Zipcode | Phone Number | | Organization | | | | + + + + + | [facility] | [address] [facility] | [place] [address] | [phone] | + + + + + POC Glucose (08/02/2019 8:26 AM PDT) + + + + + + | Component | Value | Ref Range | Performed | Pathologist | | | | | At | Signature | + + + + + + | Glucose, | 204 (H)Comment: Testing | 65 - 99 mg/dL | [facility] | | | POC | performed at [facility];[address] | | LABORATORY | | | | [address];[place], [place] | | | | | | [address] | | | | + + + + + + + + | Specimen | + + | | + + + + + + + | Performing | Address | City/State/Zipcode | Phone Number | | Organization | | | | + + + + + | [facility] | [address] | [place] [address] | [phone] | + + + + + Phosphorus (08/02/2019 4:24 AM PDT) + + + + + + | Component | Value | Ref Range | Performed | Pathologist | | | | | At | Signature | + + + + + + | Phosphorus | 2.7Comment: Testing | 2.3 - 4.8 mg/dL | [facility] | | | | performed at [address], [address] | | LABORATORY | | | | [address], | | | | | | [place] [address] | | | | + + + + + + + + | Specimen | + + | Blood | + + + + + + + | Performing | Address | City/State/Zipcode | Phone Number | | Organization | | | | + + + + + | [facility] | [address] | [place] [address] | [phone] | + + + + + CBC with Differential (08/02/2019 4:24 AM PDT) + + + + + + | Component | Value | Ref Range | Performed | Pathologist | | | | | At | Signature | + + + + + + | WBC | 10.69 | 3.80 - 11.00 | [facility] | | | | | K/uL | LABORATORY | | + + + + + + | RBC | 3.81 (L) | 4.20 - 5.70 | [facility] | | | | | M/uL | LABORATORY | | + + + + + + | Hemoglobin | 11.6 (L) | 13.2 - 17.0 | [facility] | | | | | g/dL | LABORATORY | | + + + + + + | Hematocrit | 32.8 (L) | 39.0 - 50.0 % | [facility] | | | | | | LABORATORY | | + + + + + + | MCV | 86.1 | 80.0 - 100.0 fl | [facility] | | | | | | LABORATORY | | + + + + + + | MCH | 30.4 | 27.0 - 34.0 pg | [facility] | | | | | | LABORATORY | | + + + + + + | MCHC | 35.4 | 32.0 - 35.5 | [facility] | | | | | g/dL | LABORATORY | | + + + + + + | RDW-SD | 36.4 (L) | 37 - 53 fl | [facility] | | | | | | LABORATORY | | + + + + + + | Platelet | 261 | 150 - 400 K/uL | [facility] | | | Count | | | LABORATORY | | + + + + + + | MPV | 9.7Comment: NO NORMAL | fl | [facility] | [...] + + + + | % | 78.00 | % | [facility] | | | Neutrophils | | | LABORATORY | | + + + + + + | IMMATURE | 0.70 | % | [facility] | | | GRANULOCYTE | | | LABORATORY | | + + + + + + | % | 14.70 | % | [facility] | | | Lymphocytes | | | LABORATORY | | + + + + + + | Monocyte % | 6.40 | % | [facility] | | | | | | LABORATORY | | + + + + + + | Eosinophils | 0.00 | % | [facility] | | | % | | | LABORATORY | | + + + + + + | Basophils % | 0.20 | % | [facility] | | | | | | LABORATORY | | + + + + + + | Neutrophils | 8.35 (H) | 1.90 - 7.40 | [facility] | | | , Absolute | | K/uL | LABORATORY | | + + + + + + | IMMATURE | 0.07Comment: NOTE NEW | 0.00 - 0.07 | [facility] | | | GRANS AB | REFERENCE RANGE | K/uL | LABORATORY | | + + + + + + | Absolute | 1.57 | 1.00 - 3.90 | [facility] | | | Lymphocytes | | K/uL | LABORATORY | | + + + + + + | Absolute | 0.68 | 0.00 - 0.80 | [facility] | | | Monocytes | | K/uL | LABORATORY | | + + + + + + | Eosinophils | 0.00 | 0.00 - 0.50 | [facility] | | | , Absolute | | K/uL | LABORATORY | | + + + + + + | Basophils, | 0.02Comment: Testing | 0.00 - 0.10 | [facility] | | | Absolute | performed at [facility], [address] | K/uL | LABORATORY | | | | [address], | | | | | | [place] [address] | | | | + + + + + + + + | Specimen | + + | Blood | + + + + + + + | Performing | Address | City/State/Zipcode | Phone Number | | Organization | | | | + + + + + | [facility] | [address] | [place] [address] | [phone] | + + + + + Comprehensive Metabolic Panel (08/02/2019 4:24 AM PDT) + + + + + + | Component | Value | Ref Range | Performed | Pathologist | | | | | At | Signature | + + + + + + | Na | 132 (L) | 135 - 145 | [facility] | | | | | mmol/L | LABORATORY | | + + + + + + | K | 2.6 (LL)Comment: RESULT | 3.5 - 4.9 | [facility] | | | | READ BACK BY:CLARK MARLEY | mmol/L | LABORATORY | | | | 4RP AT [facility]. 08/02/2019 | | | | | | @ 0620. [facility] | | | | | | | | | | + + + + + + | Cl | 96 (L) | 99 - 109 mmol/L | [facility] | | | | | | LABORATORY | | + + + + + + | CO2 | 28 | 23 - 32 mmol/L | [facility] | | | | | | LABORATORY | | + + + + + + | Anion Gap | 11 | 5 - 20 mmol/L | [facility] | | | | | | LABORATORY | | + + + + + + | Glucose | 226 (H) | 65 - 99 mg/dL | [facility] | | | | | | LABORATORY | | + + + + + + | BUN | 4 (L) | 8 - 25 mg/dL | [facility] | | | | | | LABORATORY | | + + + + + + | Creatinine | 0.6 (L) | 0.70 - 1.30 | [facility] | | | | | mg/dL | LABORATORY | | + + + + + + | BUN/Creatin | 7 | | [facility] | | | ine Ratio | | | LABORATORY | | + + + + + + | Calcium | 7.4 (L) | 8.5 - 10.5 | [facility] | | | | | mg/dL | LABORATORY | | + + + + + + | Protein, | 6.9 | 6.3 - 8.2 g/dL | [facility] | | | Total | | | LABORATORY | | + + + + + + | Albumin | 3.3 (L) | 3.6 - 5.0 g/dL | [facility] | | | | | | LABORATORY | | + + + + + + | Globulin | 3.6 | 1.3 - 4.9 g/dL | [facility] | | | | | | LABORATORY | | + + + + + + | A/G Ratio | 0.9 (L) | 1.0 - 2.4 | [facility] | | | | | | LABORATORY | | + + + + + + | BILIRUBIN, | 0.9 | 0.1 - 1.5 mg/dL | [facility] | | | TOTAL | | | LABORATORY | | + + + + + + | ALK PHOS | 70 | 35 - 115 U/L | [facility] | | | | | | LABORATORY | | + + + + + + | AST | 36 | 10 - 45 U/L | [facility] | | | | | | LABORATORY | | + + + + + + | ALT | 42 | 10 - 65 U/L | [facility] | | | | | | LABORATORY | | + + + + + + | Estimated | >60Comment: GFR <60: | >60 | [facility] | | | GFR | CHRONIC [...] | | | | | | MDRD IDNE traceable | | | | | | equation.Testing | | | | | | performed at [facility], [address] | | | | | | [facility], | | | | | | [place] [address] | | | | + + + + + + + + | Specimen | + + | Blood | + + + + + + + | Performing | Address | City/State/Zipcode | Phone Number | | Organization | | | | + + + + + | [facility] | [address] | [place] [address] | [phone] | + + + + + Magnesium (08/02/2019 4:24 AM PDT) + + + + + + | Component | Value | Ref Range | Performed | Pathologist | | | | | At | Signature | + + + + + + | Magnesium | 2.2Comment: Testing | 1.7 - 2.4 mg/dL | [facility] | | | | performed at [address], [address] | | LABORATORY | | | | [facility], | | | | | | [place] [address] | | | | + + + + + + + + | Specimen | + + | Blood | + + + + + + + | Performing | Address | City/State/Zipcode | Phone Number | | Organization | | | | + + + + + | [facility] | [address] | [place] [address] | [phone] | + + + + + POC Glucose (08/01/2019 9:18 PM PDT) + + + + + + | Component | Value | Ref Range | Performed | Pathologist | | | | | At | Signature | + + + + + + | Glucose, | 213 (H)Comment: Testing | 65 - 99 mg/dL | [facility] | | | POC | performed at [facility];[address] | | LABORATORY | | | | [address];[place], [place] | | | | | | [address] | | | | + + + + + + + + | Specimen | + + | | + + + + + + + | Performing | Address | City/State/Zipcode | Phone Number | | Organization | | | | + + + + + | [facility] | [address] | [place] [address] | [phone] | + + + + + POC Glucose (08/01/2019 3:37 PM PDT) + + + + + + | Component | Value | Ref Range | Performed | Pathologist | | | | | At | Signature | + + + + + + | Glucose, | 150 (H)Comment: Testing | 65 - 99 mg/dL | [facility] | | | POC | performed at [facility];[address] | | LABORATORY | | | | [address];[place] | | | | | | [address] | | | | + + + + + + + + | Specimen | + + | | + + + + + + + | Performing | Address | City/State/Zipcode | Phone Number | | Organization | | | | + + + + + | [facility] | [address] | [place] [address] | [phone] | + + + + + POC Glucose (08/01/2019 1:36 PM PDT) + + + + + + | Component | Value | Ref Range | Performed | Pathologist | | | | | At | Signature | + + + + + + | Glucose, | 148 (H)Comment: Testing | 65 - 99 mg/dL | [facility] | | | POC | performed at [facility];[address] | | LABORATORY | | | | [address];[place] | | | | | | [address] | | | | + + + + + + + + | Specimen | + + | | + + + + + + + | Performing | Address | City/State/Zipcode | Phone Number | | Organization | | | | + + + + + | [facility] | [address] | [place] [address] | [phone] | + + + + + Phosphorus (08/01/2019 11:52 AM PDT) + + + + + + | Component | Value | Ref Range | Performed | Pathologist | | | | | At | Signature | + + + + + + | Phosphorus | 1.1 (L)Comment: Testing | 2.3 - 4.8 mg/dL | [facility] | | | | performed at [facility];[address] | | LABORATORY | | | | [address];[place] | | | | | | [address] | | | | + + + + + + + + | Specimen | + + | Blood | + + + + + + + | Performing | Address | City/State/Zipcode | Phone Number | | Organization | | | | + + + + + | [facility] | [address] | [place] [address] | [phone] | + + + + + Magnesium (08/01/2019 11:52 AM PDT) + + + + + + | Component | Value | Ref Range | Performed | Pathologist | | | | | At | Signature | + + + + + + | Magnesium | 1.6 (L)Comment: Testing | 1.7 - 2.4 mg/dL | [facility] | | | | performed at [facility];[address] | | LABORATORY | | | | [address];[place] | | | | | | [address] | | | | + + + + + + + + | Specimen | + + | Blood | + + + + + + + | Performing | Address | City/State/Zipcode | Phone Number | | Organization | | | | + + + + + | [facility] | [address] | [place] [address] | [phone] | + + + + + Basic Metabolic Panel (08/01/2019 11:52 AM PDT) + + + + + + | Component | Value | Ref Range | Performed | Pathologist | | | | | At | Signature | + + + + + + | Na | 136 | 135 - 145 | [facility] | | | | | mmol/L | LABORATORY | | + + + + + + | K | 3.0 (L) | 3.5 - 4.9 | [facility] | | | | | mmol/L | LABORATORY | | + + + + + + | Cl | 104 | 99 - 109 mmol/L | [facility] | | | | | | LABORATORY | | + + + + + + | CO2 | 24 | 23 - 32 mmol/L | [facility] | | | | | | LABORATORY | | + + + + + + | Anion Gap | 11 | 5 - 20 mmol/L | [facility] | | | | | | LABORATORY | | + + + + + + | Glucose | 147 (H) | 65 - 99 mg/dL | [facility] | | | | | | LABORATORY | | + + + + + + | BUN | 9 | 8 - 25 mg/dL | [facility] | | | | | | LABORATORY | | + + + + + + | Creatinine | 0.75 | 0.70 - 1.30 | [facility] | | | | | mg/dL | LABORATORY | | + + + + + + | BUN/Creatin | 12 | | [facility] | | | ine Ratio | | | LABORATORY | | + + + + + + | Calcium | 8.0 (L) | 8.5 - 10.5 | [facility] | | | | | mg/dL | LABORATORY | | + + + + + + | Estimated | >60Comment: GFR <60: | >60 | [facility] | | | GFR | CHRONIC [...] | | | | | | MDRD [facility] traceable | | | | | | equation.Testing | | | | | | performed at [facility] | | | | | | [facility];[place], [place] | | | | | | [address] | | | | + + + + + + + + | Specimen | + + | Blood | + + + + + + + | Performing | Address | City/State/Zipcode | Phone Number | | Organization | | | | + + + + + | [facility] | [address] | [place] [address] | [phone] | + + + + + POC Glucose (08/01/2019 11:13 AM PDT) + + + + + + | Component | Value | Ref Range | Performed | Pathologist | | | | | At | Signature | + + + + + + | Glucose, | 140 (H)Comment: Testing | 65 - 99 mg/dL | [facility] | | | POC | performed at [facility];[address] | | LABORATORY | | | | [address];[place] | | | | | | [address] | | | | + + + + + + + + | Specimen | + + | | + + + + + + + | Performing | Address | City/State/Zipcode | Phone Number | | Organization | | | | + + + + + | [facility] | [address] | [place] [address] | [phone] | + + + + + POC Glucose (08/01/2019 9:51 AM PDT) + + + + + + | Component | Value | Ref Range | Performed | Pathologist | | | | | At | Signature | + + + + + + | Glucose, | 155 (H)Comment: Testing | 65 - 99 mg/dL | [facility] | | | POC | performed at [facility];[address] | | LABORATORY | | | | [address];[place] | | | | | | [address] | | | | + + + + + + + + | Specimen | + + | | + + + + + + + | Performing | Address | City/State/Zipcode | Phone Number | | Organization | | | | + + + + + | [facility] | [address] | [place] [address] | [phone] | + + + + + POC Glucose (08/01/2019 8:54 AM PDT) + + + + + + | Component | Value | Ref Range | Performed | Pathologist | | | | | At | Signature | + + + + + + | Glucose, | 161 (H)Comment: Testing | 65 - 99 mg/dL | [facility] | | | POC | performed at [facility] [place] | | LABORATORY | | | [address];[place], [place] | | | | | | [address] | | | | + + + + + + + + | Specimen | + + | | + + + + + + + | Performing | Address | City/State/Zipcode | Phone Number | | Organization | | | | + + + + + | [facility] | [address] | [place] [address] | [phone] | + + + + + Hemoglobin A1C (08/01/2019 7:46 AM PDT) + + + + + + | Component | Value | Ref Range | Performed | Pathologist | | | | | At | Signature | + + + + + + | Hemoglobin | 17.0 (H)Comment: HbA1c | 4.0 - 6.0 % | [facility] | | | A1c | method [...] | 441 (H)Comment: | <154 mg/dL | [facility] | | | Average | Estimated Average | | LABORATORY | | | Glucose | Glucose calculated from | | | | | | hemoglobin A1c by use of | | | | | | the ADArecommended | | | | | | formula.Testing | | | | | | performed at [facility], [address] | | | | | [facility], | | | | | | [place] [address] | | | | + + + + + + + + | Specimen | + + | Blood | + + + + + + + | Performing | Address | City/State/Zipcode | Phone Number | | Organization | | | | + + + + + | [facility] | [address] | [place] [address] | [phone] | + + + + + Phosphorus (08/01/2019 7:46 AM PDT) + + + + + + | Component | Value | Ref Range | Performed | Pathologist | | | | | At | Signature | + + + + + + | Phosphorus | 1.2 (L)Comment: Testing | 2.3 - 4.8 mg/dL | [facility] | | | | performed at [facility] [place];[address] | | LABORATORY | | | | [address];[place] | | | | | | [address] | | | | + + + + + + + + | Specimen | + + | Blood | + + + + + + + | Performing | Address | City/State/Zipcode | Phone Number | | Organization | | | | + + + + + | [facility] | [address] | [place] [address] | [phone] | + + + + + Magnesium (08/01/2019 7:46 AM PDT) + + + + + + | Component | Value | Ref Range | Performed | Pathologist | | | | | At | Signature | + + + + + + | Magnesium | 1.7Comment: Testing | 1.7 - 2.4 mg/dL | [facility] | | | | performed at [facility] [place];[address] | | LABORATORY | | | | [address];[place], [place] | | | | | | [address] | | | | + + + + + + + + | Specimen | + + | Blood | + + + + + + + | Performing | Address | City/State/Zipcode | Phone Number | | Organization | | | | + + + + + | [facility] | [address] | [place] [address] | [phone] | + + + + + Basic Metabolic Panel (08/01/2019 7:46 AM PDT) + + + + + + | Component | Value | Ref Range | Performed | Pathologist | | | | | At | Signature | + + + + + + | Na | 137 | 135 - 145 | [facility] | | | | | mmol/L | LABORATORY | | + + + + + + | K | 3.5 | 3.5 - 4.9 | [facility] | | | | | mmol/L | LABORATORY | | + + + + + + | Cl | 106 | 99 - 109 mmol/L | [facility] | | | | | | LABORATORY | | + + + + + + | CO2 | 23 | 23 - 32 mmol/L | [facility] | | | | | | LABORATORY | | + + + + + + | Anion Gap | 12 | 5 - 20 mmol/L | [facility] | | | | | | LABORATORY | | + + + + + + | Glucose | 195 (H) | 65 - 99 mg/dL | [facility] | | | | | | LABORATORY | | + + + + + + | BUN | 10 | 8 - 25 mg/dL | [facility] | | | | | | LABORATORY | | + + + + + + | Creatinine | 0.90 | 0.70 - 1.30 | [facility] | | | | | mg/dL | LABORATORY | | + + + + + + | BUN/Creatin | 11 | | [facility] | | | ine Ratio | | | LABORATORY | | + + + + + + | Calcium | 8.0 (L) | 8.5 - 10.5 | [facility] | | | | | mg/dL | LABORATORY | | + + + + + + | Estimated | >60Comment: GFR <60: | >60 | [facility] | | | GFR | CHRONIC KIDNEY [...] | | | | | | MDRD IDMS traceable | | | | | | equation.Testing | | | | | | performed at [facility];[address] | | | | | | [address];[place] | | | | | | [address] | | | | + + + + + + + + | Specimen | + + | Blood | + + + + + + + | Performing | Address | City/State/Zipcode | Phone Number | | Organization | | | | + + + + + | [facility] | [address] | [place] [address] | [phone] | + + + + + POC Glucose (08/01/2019 7:40 AM PDT) + + + + + + | Component | Value | Ref Range | Performed | Pathologist | | | | | At | Signature | + + + + + + | Glucose, | 208 (H)Comment: Testing | 65 - 99 mg/dL | [facility] | | | POC | performed at [facility];[address] | | LABORATORY | | | | [address];[place] | | | | | | [address] | | | | + + + + + + + + | Specimen | + + | | + + + + + + + | Performing | Address | City/State/Zipcode | Phone Number | | Organization | | | | + + + + + | [facility] | [address] | [place] [address] | [phone] | + + + + + POC Glucose (08/01/2019 6:20 AM PDT) + + + + + + | Component | Value | Ref Range | Performed | Pathologist | | | | | At | Signature | + + + + + + | Glucose, | 188 (H)Comment: Testing | 65 - 99 mg/dL | [facility] | | | POC | performed at [facility];[address] | | LABORATORY | | | | [address];[place] | | | | | | [address] | | | | + + + + + + + + | Specimen | + + | | + + + + + + + | Performing | Address | City/State/Zipcode | Phone Number | | Organization | | | | + + + + + | [facility] | [address] | [place] [address] | [phone] | + + + + + Urinalysis [...] - 1.030 | [facility] | | | [place], | | | LABORATORY | | | [...] | | | Urine | performed at [facility];[address] | | LABORATORY | | | | [address];[place] | | | | | | [address] | | | | + + + + + + + + | Specimen | + + | Urine - Urine | | specimen (specimen) | + + + + + + + | Performing | Address | City/State/Zipcode | Phone Number | | Organization | | | | + + + + + | [facility] | [address] | [place] [address] | [phone] | + + + + + POC Glucose (08/01/2019 5:29 AM PDT) + + + + + + | Component | Value | Ref Range | Performed | Pathologist | | | | | At | Signature | + + + + + + | Glucose, | 227 (H)Comment: Testing | 65 - 99 mg/dL | [facility] | | | POC | performed at [facility];[address] | | LABORATORY | | | | [address];[place] | | | | | | [address] | | | | + + + + + + + + | Specimen | + + | | + + + + + + + | Performing | Address | City/State/Zipcode | Phone Number | | Organization | | | | + + + + + | [facility] | [address] | [place] [address] | [phone] | + + + + + Phosphorus (08/01/2019 4:23 AM PDT) + + + + + + | Component | Value | Ref Range | Performed | Pathologist | | | | | At | Signature | + + + + + + | Phosphorus | 1.0 (L)Comment: Testing | 2.3 - 4.8 mg/dL | [facility] | | | | performed at [facility];[address] | | LABORATORY | | | | [address];[place], [place] | | | | | | [address] | | | | + + + + + + + + | Specimen | + + | Blood | + + + + + + + | Performing | Address | City/State/Zipcode | Phone Number | | Organization | | | | + + + + + | [facility] | [address] | [place] [address] | [phone] | + + + + + Magnesium (08/01/2019 4:23 AM PDT) + + + + + + | Component | Value | Ref Range | Performed | Pathologist | | | | | At | Signature | + + + + + + | Magnesium | 1.6 (L)Comment: Testing | 1.7 - 2.4 mg/dL | [facility] | | | | performed at [facility];[address] | | LABORATORY | | | | [address];[place] | | | | | | [address] | | | | + + + + + + + + | Specimen | + + | Blood | + + + + + + + | Performing | Address | City/State/Zipcode | Phone Number | | Organization | | | | + + + + + | [facility] | [address] | [place] [address] | [phone] | + + + + + Basic Metabolic Panel (08/01/2019 4:23 AM PDT) + + + + + + | Component | Value | Ref Range | Performed | Pathologist | | | | | At | Signature | + + + + + + | Na | 137 | 135 - 145 | [facility] | | | | | mmol/L | LABORATORY | | + + + + + + | K | 3.6 | 3.5 - 4.9 | [facility] | | | | | mmol/L | LABORATORY | | + + + + + + | Cl | 105 | 99 - 109 mmol/L | [facility] | | | | | | LABORATORY | | + + + + + + | CO2 | 21 (L) | 23 - 32 mmol/L | [facility] | | | | | | LABORATORY | | + + + + + + | Anion Gap | 15 | 5 - 20 mmol/L | [facility] | | | | | | LABORATORY | | + + + + + + | Glucose | 248 (H) | 65 - 99 mg/dL | [facility] | | | | | | LABORATORY | | + + + + + + | BUN | 10 | 8 - 25 mg/dL | [facility] | | | | | | LABORATORY | | + + + + + + | Creatinine | 1.06 | 0.70 - 1.30 | [facility] | | | | | mg/dL | LABORATORY | | + + + + + + | BUN/Creatin | 9 | | [facility] | | | ine Ratio | | | LABORATORY | | + + + + + + | Calcium | 7.9 (L) | 8.5 - 10.5 | [facility] | | | | | mg/dL | LABORATORY | | + + + + + + | Estimated | >60Comment: GFR <60: | >60 | [facility] | | | GFR | CHRONIC KIDNEY [...] | | | | | | MDRD [facility] traceable | | | | | | equation.Testing | | | | | | performed at [facility];[address] | | | | | | [facility];[place], [place] | | | | | | [address] | | | | + + + + + + + + | Specimen | + + | Blood | + + + + + + + | Performing | Address | City/State/Zipcode | Phone Number | | Organization | | | | + + + + + | [facility] | [address] | [place] [address] | [phone] | + + + + + CBC with Differential (08/01/2019 4:23 AM PDT) + + + + + + | Component | Value | Ref Range | Performed | Pathologist | | | | | At | Signature | + + + + + + | WBC | 10.68 | 3.80 - 11.00 | [facility] | | | | | K/uL | LABORATORY | | + + + + + + | RBC | 3.85 (L) | 4.20 - 5.70 | [facility] | | | | | M/uL | LABORATORY | | + + + + + + | Hemoglobin | 11.6 (L) | 13.2 - 17.0 | [facility] | | | | | g/dL | LABORATORY | | + + + + + + | Hematocrit | 33.8 (L) | 39.0 - 50.0 % | [facility] | | | | | | LABORATORY | | + + + + + + | MCV | 87.8 | 80.0 - 100.0 fl | [facility] | | | | | | LABORATORY | | + + + + + + | MCH | 30.1 | 27.0 - 34.0 pg | [facility] | | | | | | LABORATORY | | + + + + + + | MCHC | 34.3 | 32.0 - 35.5 | [facility] | | | | | g/dL | LABORATORY | | + + + + + + | RDW-SD | 37.1 | 37 - 53 fl | [facility] | | | | | | LABORATORY | | + + + + + + | Platelet | 294 | 150 - 400 K/uL | [facility] | | | Count | | | LABORATORY | | + + + + + + | MPV | 9.8Comment: NO NORMAL | fl | [facility] | [...] + + + + | % | 81.50 | % | [facility] | | | Neutrophils | | | LABORATORY | | + + + + + + | IMMATURE | 0.50 | % | [facility] | | | GRANULOCYTE | | | LABORATORY | | + + + + + + | % | 10.70 | % | [facility] | | | Lymphocytes | | | LABORATORY | | + + + + + + | Monocyte % | 7.20 | % | [facility] | | | | | | LABORATORY | | + + + + + + | Eosinophils | 0.00 | % | [facility] | | | % | | | LABORATORY | | + + + + + + | Basophils % | 0.10 | % | [facility] | | | | | | LABORATORY | | + + + + + + | Neutrophils | 8.71 (H) | 1.90 - 7.40 | [facility] | | | , Absolute | | K/uL | LABORATORY | | + + + + + + | IMMATURE | 0.05Comment: NOTE NEW | 0.00 - 0.07 | [facility] | | | GRANS AB | REFERENCE RANGE | K/uL | LABORATORY | | + + + + + + | Absolute | 1.14 | 1.00 - 3.90 | [facility] | | | Lymphocytes | | K/uL | LABORATORY | | + + + + + + | Absolute | 0.77 | 0.00 - 0.80 | [facility] | | | Monocytes | | K/uL | LABORATORY | | + + + + + + | Eosinophils | 0.00 | 0.00 - 0.50 | [facility] | | | , Absolute | | K/uL | LABORATORY | | + + + + + + | Basophils, | 0.01Comment: Testing | 0.00 - 0.10 | [facility] | | | Absolute | performed at [facility], [address] | K/uL | LABORATORY | | | | [address], | | | | | | [place] [address] | | | | + + + + + + + + | Specimen | + + | Blood | + + + + + + + | Performing | Address | City/State/Zipcode | Phone Number | | Organization | | | | + + + + + | [facility] | [address] | [place] [address] | [phone] | + + + + + POC Glucose (08/01/2019 4:21 AM PDT) + + + + + + | Component | Value | Ref Range | Performed | Pathologist | | | | | At | Signature | + + + + + + | Glucose, | 260 (H)Comment: Testing | 65 - 99 mg/dL | [facility] | | | POC | performed at [facility];[address] | | LABORATORY | | | | [address];[place] | | | | | | [address] | | | | + + + + + + + + | Specimen | + + | | + + + + + + + | Performing | Address | City/State/Zipcode | Phone Number | | Organization | | | | + + + + + | [facility] | [address] | [place] [address] | [phone] | + + + + + POC Glucose (08/01/2019 3:28 AM PDT) + + + + + + | Component | Value | Ref Range | Performed | Pathologist | | | | | At | Signature | + + + + + + | Glucose, | 254 (H)Comment: Testing | 65 - 99 mg/dL | [facility] | | | POC | performed at [facility];[address] | | LABORATORY | | | | [address];[place] | | | | | | [address] | | | | + + + + + + + + | Specimen | + + | | + + + + + + + | Performing | Address | City/State/Zipcode | Phone Number | | Organization | | | | + + + + + | [facility] | [address] | [place] [address] | [phone] | + + + + + POC Glucose (08/01/2019 2:02 AM PDT) + + + + + + | Component | Value | Ref Range | Performed | Pathologist | | | | | At | Signature | + + + + + + | Glucose, | 264 (H)Comment: Testing | 65 - 99 mg/dL | [facility] | | | POC | performed at [facility];[address] | | LABORATORY | | | | [address];[place] | | | | | | [address] | | | | + + + + + + + + | Specimen | + + | | + + + + + + + | Performing | Address | City/State/Zipcode | Phone Number | | Organization | | | | + + + + + | [facility] | [address] | [place] [address] | [phone] | + + + + + POC Glucose (08/01/2019 1:23 AM PDT) + + + + + + | Component | Value | Ref Range | Performed | Pathologist | | | | | At | Signature | + + + + + + | Glucose, | 228 (H)Comment: Testing | 65 - 99 mg/dL | [facility] | | | POC | performed at [facility];[address] | | LABORATORY | | | | [address];[place] | | | | | | [address] | | | | + + + + + + + + | Specimen | + + | | + + + + + + + | Performing | Address | City/State/Zipcode | Phone Number | | Organization | | | | + + + + + | [facility] | [address] | [place] [address] | [phone] | + + + + + POC Glucose (08/01/2019 12:07 AM PDT) + + + + + + | Component | Value | Ref Range | Performed | Pathologist | | | | | At | Signature | + + + + + + | Glucose, | 220 (H)Comment: Testing | 65 - 99 mg/dL | [facility] | | | POC | performed at [facility];[address] | | LABORATORY | | | | [address];[place], [place] | | | | | | [address] | | | | + + + + + + + + | Specimen | + + | | + + + + + + + | Performing | Address | City/State/Zipcode | Phone Number | | Organization | | | | + + + + + | [facility] | [address] | [place] [address] | [phone] | + + + + + POC Glucose (07/31/2019 11:12 PM PDT) + + + + + + | Component | Value | Ref Range | Performed | Pathologist | | | | | At | Signature | + + + + + + | Glucose, | 244 (H)Comment: Testing | 65 - 99 mg/dL | [facility] | | | POC | performed at [facility];[address] | | LABORATORY | | | | [address] [facility];[place], [place] | | | | | | [address] | | | | + + + + + + + + | Specimen | + + | | + + + + + + + | Performing | Address | City/State/Zipcode | Phone Number | | Organization | | | | + + + + + | [facility] | [address] | [place] [address] | [phone] | + + + + + CT [...] pelvic mass. Signed by: Trinh Melendez, Cyn Sign | | | Date/Time: 07/31/2019 10:35 PM [...] (L)Comment: This | 7.310 - 7.410 | [facility] | | | POC | test was [...] [facility] | | | | performed at [facility];[address] | | LABORATORY | | | | [address];[place] | | | | | | [address] | | | | + + + + + + + + | Specimen | + + | | + + + + + + + | Performing | Address | City/State/Zipcode | Phone Number | | Organization | | | | + + + + + | [facility] | [address] | [place] [address] | [phone] | + + + + + ECG [...] | | | | | ONLY, -COMPUTER (500), | | | | | | publishing editor ALEKSANDRA LOREDO | | | | | | ([id number]) on 08/01/2019 | | | | | [...] | | | + +---------+ + + Ketones, Serum (07/31/2019 8:41 PM PDT) + + + + + + | Component | Value | Ref Range | Performed | Pathologist | | | | | At | Signature | + + + + + + | Ketones, | GEE (Nash)Comment: | NEG | [facility] | | | Blood | Testing performed at | | LABORATORY | | | | [facility];[address];[place] [address] | | | | + + + + + + + + | Specimen | + + | | + + + + + + + | Performing | Address | City/State/Zipcode | Phone Number | | Organization | | | | + + + + + | [facility] | [address] | [place] [address] | [phone] | + + + + + Troponin I (07/31/2019 8:41 PM PDT) + + + + + + | Component | Value | Ref Range | Performed | Pathologist | | | | | At | Signature | + + + + + + | Troponin I | <0.006Comment: 0.04 | 0.00 - 0.04 | [facility] | | | | ng/mL or less [...] at | | | | | | [facility];[address] [facility] | | | | | | [address];[place] [address] | | | | + + + + + + + + | Specimen | + + | | + + + + + + + | Performing | Address | City/State/Zipcode | Phone Number | | Organization | | | | + + + + + | [facility] | [address] | [place] [address] | [phone] | + + + + + Lipase (07/31/2019 8:41 PM PDT) + + + + + + | Component | Value | Ref Range | Performed | Pathologist | | | | | At | Signature | + + + + + + | Lipase | 41Comment: Testing | 12 - 53 U/L | [facility] | | | | performed at [facility];[address] | | LABORATORY | | | | [address];[place], [place] | | | | | | [address] | | | | + + + + + + + + | Specimen | + + | Blood | + + + + + + + | Performing | Address | City/State/Zipcode | Phone Number | | Organization | | | | + + + + + | [facility] | [address] [facility] | [place] [address] | [phone] | + + + + + Comprehensive Metabolic Panel (07/31/2019 8:41 PM PDT) + + + + + + | Component | Value | Ref Range | Performed | Pathologist | | | | | At | Signature | + + + + + + | Na | 134 (L) | 135 - 145 | [facility] | | | | | mmol/L | LABORATORY | | + + + + + + | K | 3.9 | 3.5 - 4.9 | [facility] | | | | | mmol/L | LABORATORY | | + + + + + + | Cl | 94 (L) | 99 - 109 mmol/L | [facility] | | | | | | LABORATORY | | + + + + + + | CO2 | 13 (LL)Comment: CALLED | 23 - 32 mmol/L | [facility] | | | | PHYSICIANREAD BACK | | LABORATORY | | | | RESULTS VERIFIEDDR DE JESUS | | | | | | IN ED AT [address] [facility] | | | | | |DR DE JESUS IN ED AT [address] [facility] | | | | | | | | | | + + + + + + | Anion Gap | 31 (H) | 5 - 20 mmol/L | [facility] | | | | | | LABORATORY | | + + + + + + | Glucose | 333 (H) | 65 - 99 mg/dL | [facility] | | | | | | LABORATORY | | + + + + + + | BUN | 14 | 8 - 25 mg/dL | [facility] | | | | | | LABORATORY | | + + + + + + | Creatinine | 1.16 | 0.70 - 1.30 | [facility] | | | | | mg/dL | LABORATORY | | + + + + + + | BUN/Creatin | 12 | | [facility] | | | ine Ratio | | | LABORATORY | | + + + + + + | Calcium | 9.3 | 8.5 - 10.5 | [facility] | | | | | mg/dL | LABORATORY | | + + + + + + | Protein, | 8.6 (H) | 6.3 - 8.2 g/dL | [facility] | | | Total | | | LABORATORY | | + + + + + + | Albumin | 5.1 (H) | 3.6 - 5.0 g/dL | [facility] | | | | | | LABORATORY | | + + + + + + | Globulin | 3.5 | 1.3 - 4.9 g/dL | [facility] | | | | | | LABORATORY | | + + + + + + | A/G Ratio | 1.5 | 1.0 - 2.4 | [facility] | | | | | | LABORATORY | | + + + + + + | BILIRUBIN, | 1.0 | 0.1 - 1.5 mg/dL | [facility] | | | TOTAL | | | LABORATORY | | + + + + + + | ALK PHOS | 95 | 35 - 115 U/L | [facility] | | | | | | LABORATORY | | + + + + + + | AST | 22 | 10 - 45 U/L | [facility] | | | | | | LABORATORY | | + + + + + + | ALT | 45 | 10 - 65 U/L | [facility] | | | | | | LABORATORY | | + + + + + + | Estimated | >60Comment: GFR <60: | >60 | [facility] | | | GFR | CHRONIC [...] | | | | | | MDRD IDMS traceable | | | | | | equation.Testing | | | | | | performed at [facility] | | | | | | [facility];[place], [place] | | | | | | [address] | | | | + + + + + + + + | Specimen | + + | Blood | + + + + + + + | Performing | Address | City/State/Zipcode | Phone Number | | Organization | | | | + + + + + | [facility] | [address] | [place] [address] | [phone] | + + + + + CBC with Differential (07/31/2019 8:41 PM PDT) + + + + + + | Component | Value | Ref Range | Performed | Pathologist | | | | | At | Signature | + + + + + + | WBC | 15.21 (H) | 3.80 - 11.00 | [facility] | | | | | K/uL | LABORATORY | | + + + + + + | RBC | 4.79 | 4.20 - 5.70 | [facility] | | | | | M/uL | LABORATORY | | + + + + + + | Hemoglobin | 14.5 | 13.2 - 17.0 | [facility] | | | | | g/dL | LABORATORY | | + + + + + + | Hematocrit | 42.7 | 39.0 - 50.0 % | [facility] | | | | | | LABORATORY | | + + + + + + | MCV | 89.1 | 80.0 - 100.0 fl | [facility] | | | | | | LABORATORY | | + + + + + + | MCH | 30.3 | 27.0 - 34.0 pg | [facility] | | | | | | LABORATORY | | + + + + + + | MCHC | 34.0 | 32.0 - 35.5 | [facility] | | | | | g/dL | LABORATORY | | + + + + + + | RDW-SD | 38.6 | 37 - 53 fl | [facility] | | | | | | LABORATORY | | + + + + + + | Platelet | 344 | 150 - 400 K/uL | [facility] | | | Count | | | LABORATORY | | + + + + + + | MPV | 9.5Comment: NO NORMAL | fl | [facility] | [...] + + + + | % | 85.50 | % | [facility] | | | Neutrophils | | | LABORATORY | | + + + + + + | IMMATURE | 0.40 | % | [facility] | | | GRANULOCYTE | | | LABORATORY | | + + + + + + | % | 9.70 | % | [facility] | | | Lymphocytes | | | LABORATORY | | + + + + + + | Monocyte % | 4.10 | % | [facility] | | | | | | LABORATORY | | + + + + + + | Eosinophils | 0.00 | % | [facility] | | | % | | | LABORATORY | | + + + + + + | Basophils % | 0.30 | % | [facility] | | | | | | LABORATORY | | + + + + + + | Neutrophils | 13.00 (H) | 1.90 - 7.40 | [facility] | | | , Absolute | | K/uL | LABORATORY | | + + + + + + | IMMATURE | 0.06Comment: NOTE NEW | 0.00 - 0.07 | [facility] | | | GRANS AB | REFERENCE RANGE | K/uL | LABORATORY | | + + + + + + | Absolute | 1.48 | 1.00 - 3.90 | [facility] | | | Lymphocytes | | K/uL | LABORATORY | | + + + + + + | Absolute | 0.63 | 0.00 - 0.80 | [facility] | | | Monocytes | | K/uL | LABORATORY | | + + + + + + | Eosinophils | 0.00 | 0.00 - 0.50 | [facility] | | | , Absolute | | K/uL | LABORATORY | | + + + + + + | Basophils, | 0.04Comment: Testing | 0.00 - 0.10 | [facility] | | | Absolute | performed at [facility];[address] | K/uL | LABORATORY | | | | [address];[place], [place] | | | | | | [address] | | | | + + + + + + + + | Specimen | + + | Blood | + + + + + + + | Performing | Address | City/State/Zipcode | Phone Number | | Organization | | | | + + + + + | [facility] | [address] | [place] [address] | [phone] | + + + + + documented in this encounter Visit Diagnoses + + | Diagnosis | + + | Diabetic ketoacidosis without coma associated with type 2 diabetes mellitus (HCC) - | | Primary | + + | Left upper quadrant pain Abdominal pain, left upper quadrant | + + | Nausea and vomiting in adult Nausea with vomiting | + + | HLD (hyperlipidemia) Other and unspecified hyperlipidemia | + + | HTN (hypertension) Unspecified essential hypertension | + + | Mild colitis, acute; splenic flexure and descending colon Other and unspecified | | noninfectious gastroenteritis and colitis | + + documented in this encounter Admitting Diagnoses + + | Diagnosis | + + | Nausea and vomiting in adult Nausea with vomiting | + + documented in this encounter Administered Medications + +--------+ +--------+------+------+ | Medication Order | MAR | Action | Dose | Rate | Site | | | Action | Date | | | | + +--------+ +--------+------+------+ | aluminum & magnesium | Given | 07/31/19 | 40 mLs | | | | hydroxide-simethicone (MAALOX | | 20 9:07 | | | | | PLUS REGULAR STRENGTH) 200-200-20 | | PM PDT | | | | | mg/5 mL 30 mL, lidocaine | | | | | | | (XYLOCAINE) 2% 10 mL liquid 40 | | | | | | | mL, Oral, ONCE, 07/31/19 at | | | | | | | 2105, For 1 dose, Mix Maalox Plus | | | | | | | 30 ml, Lidocaine viscous 2% 10 | | | | | | | ml to formulate mixture., | | | | | | + +--------+ +--------+------+------+ +---+---+ | | | +---+---+ + +-------+ +--------+---+---+ | aluminum & magnesium | Given | 08/05/19 | 40 mLs | | | | hydroxide-simethicone (MAALOX | | 20 9:46 | | | | | PLUS REGULAR STRENGTH) 200-200-20 | | AM PDT | | | | | mg/5 mL 30 mL, lidocaine | | | | | | | (XYLOCAINE) 2% 10 mL liquid 40 | | | | | | | mL, Oral, ONCE, [facility] 08/05/19 at | | | | | | | 0945, For 1 dose, Mix Maalox Plus | | | | | | | 30 ml, Lidocaine viscous 2% 10 | | | | | | | ml to formulate mixture., | | | | | | + +-------+ +--------+---+---+ +---+---+ | | | +---+---+ + +-------+ +-------+---+---+ | atorvaSTATin (LIPITOR) tablet | Given | 08/06/19 | 20 mg | | | | 20 mg 20 mg, Oral, NIGHTLY, | | 20 7:38 | | | | | First dose on 08/01/19 at 0015 | | PM PDT | | | | + +-------+ +-------+---+---+ +-------+ +-------+---+---+ | Given | 08/05/19 | 20 mg | | | | | 20 9:12 | | | | | | PM PDT | | | | +-------+ +-------+---+---+ | Given | 08/04/19 | 20 mg | | | | | 20 8:43 | | | | | | PM PDT | | | | +-------+ +-------+---+---+ +---+---+ | | | +---+---+ + +-------+ +--------+---+---+ | ciprofloxacin (CIPRO) tablet | Given | 08/07/19 | 500 mg | | | | 500 mg 500 mg, Oral, 2 TIMES | | 20 6:14 | | | | | DAILY, First dose on Tu20 | | AM PDT | | | | | at 1430, For 4 days, Give 2 hours | | | | | | | before or 6 hours after | | | | | | | antacids, dairy, calcium, iron, | | | | | | | or zinc., Indications: ENTERITIS | | | | | | | AND COLITIS | | | | | | + +-------+ +--------+---+---+ +-------+ +--------+---+---+ | Given | 08/06/19 | 500 mg | | | | | 20 5:28 | | | | | | PM PDT | | | | +-------+ +--------+---+---+ | Given | 08/06/19 | 500 mg | | | | | 20 12:36 | | | | | | AM PDT | | | | +-------+ +--------+---+---+ +---+---+ | | | +---+---+ + +---------+ +--------+-------+---+ | ciprofloxacin in dextrose | New Bag | 08/03/19 | 400 mg | 200 | | | (CIPRO) IVPB 400 mg 400 mg, | | 20 3:00 | | mL/hr | | | Intravenous, Administer over 1 | | AM PDT | | | | | Hours, EVERY 12 HOURS INTERVAL, | | | | | | | First dose on 08/01/19 at | | | | | | | 0030, Indications: | | | | | | | Intra-Abdominal Infection | | | | | | + +---------+ +--------+-------+---+ +---------+ +--------+-------+---+ | New Bag | 08/02/19 | 400 mg | 200 | | | | 20 5:09 | | mL/hr | | | | PM PDT | | | | +---------+ +--------+-------+---+ | New Bag | 08/02/19 | 400 mg | 200 | | | | 20 2:51 | | mL/hr | | | | AM PDT | | | | +---------+ +--------+-------+---+ + +---+ | | | + +---+ | dextrose 10% (D10W) infusion | | | at 110 mL/hr, Intravenous, | | | CONTINUOUS PRN, Start if TPN or | | | tube feedings held for more than | | | 30 minutes., Starting 07/31/19 | | | at 2152 | | + +---+ | | | + +---+ | dextrose 10% (D10W) infusion | | | at 50 mL/hr, Intravenous, | | | CONTINUOUS PRN, hypoglycemia, | | | Starting 08/01/19 at 1420, | | | Start infusion if unable to | | | maintain blood glucose greater | | | than 70 mg/dL after two rounds of | | | hypoglycemia treatment. Recheck | | | blood glucose 30 minutes after | | | starting D10W then at least | | | hourly and PRN until it is | | | discontinued. Call provider to | | | discuss parameters for D10W | | | discontinuation., | | + +---+ | | | + +---+ + +---------+ +---+-------+---+ | dextrose 5% and sodium chloride | New Bag | 08/01/19 | | 200 | | | 0.45% (D5 1/2 NS) infusion at | | 20 9:01 | | mL/hr | | | 200 mL/hr, Intravenous, | | AM PDT | | | | | CONTINUOUS, Starting 08/01/19 | | | | | | | at 0255, Start at hour 6 and | | | | | | | continue until insulin infusion | | | | | | | is discontinued. Start during | | | | | | | hour 3 to 5 if BG is less than | | | | | | | 250 at rate of 5 mL/kg/hr; then | | | | | | | decrease to 200 mL/hr at hour 6., | | | | | | | | | | | | | + +---------+ +---+-------+---+ + + +---+-------+---+ | New Bag | 08/01/19 | | 200 | | | | 20 3:43 | | mL/hr | | | | AM PDT | | | | + + +---+-------+---+ | Rate/Dose Change | 08/01/19 | | 200 | | | | 20 2:17 | | mL/hr | | | | AM PDT | | | | + + +---+-------+---+ + +---+ | | | + +---+ | dextrose 50% injection 12.5-25 | | | g 12.5-25 g, Intravenous, PRN, | | | Low Blood Sugar, Starting Sun | | | 08/01/19 at 1420, For blood | | | glucose 50-69 mg/dl - give 12.5 g | | | For blood glucose less than 50 | | | mg/dl - give 25 g, | | + +---+ | | | + +---+ | dextrose 50% injection 2.5-25 g | | | 2.5-25 g (5-50 mL), | | | Intravenous, PRN, Low Blood | | | Sugar, Starting 07/31/19 at | | | 2152, For BG 70 or less, per | | | EndoTool guidelines. Recheck | | | Blood Glucose in 15 minutes. | | | Refer to EndoTool for | | | hypoglycemia protocol., | | + +---+ | | | + +---+ + +-------+ +-------+---+---+ | dicyclomine (BENTYL) tablet 20 | Given | 08/04/19 | 20 mg | | | | mg 20 mg, Oral, ONCE, Wed | | 20 2:06 | | | | | 08/04/19 at 0200, For 1 dose | | AM PDT | | | | + +-------+ +-------+---+---+ +---+---+ | | | +---+---+ + +-------+ +-------+---+ + | enoxaparin (LOVENOX) 40 mg/0.4 | Given | 08/07/19 | 40 mg | | Abdomen- | | mL injection 40 mg 40 mg, | | 20 8:20 | | | RUQ | | Subcutaneous, EVERY 24 HOURS | | AM PDT | | | | | (Daily), First dose on Sun | | | | | | | 08/01/19 at 0900 | | | | | | + +-------+ +-------+---+ + +-------+ +-------+---+ + | Given | 08/06/19 | 40 mg | | Abdomen- | | | 20 9:30 | | | LUQ | | | AM PDT | | | | +-------+ +-------+---+ + | Given | 08/05/19 | 40 mg | | Abdomen- | | | 20 8:49 | | | RUQ | | | AM PDT | | | | +-------+ +-------+---+ + +---+---+ | | | +---+---+ + +-------+ +-------+---+---+ | famotidine (PEPCID) injection | Given | 08/05/19 | 20 mg | | | | 20 mg 20 mg, Intravenous, EVERY | | 20 8:49 | | | | | 12 HOURS (2 times per day), First | | AM PDT | | | | | dose on 08/01/19 at 0015, | | | | | | | Dilute 2 mL of famotidine with 8 | | | | | | | mL of normal saline to a final | | | | | | | concentration of 2 mg/mL. | | | | | | | Administer ordered dose over a | | | | | | | period of at least 2 minutes., | | | | | | + +-------+ +-------+---+---+ +-------+ +-------+---+---+ | Given | 08/04/19 | 20 mg | | | | | 20 8:43 | | | | | | PM PDT | | | | +-------+ +-------+---+---+ | Given | 08/04/19 | 20 mg | | | | | 20 9:18 | | | | | | AM PDT | | | | +-------+ +-------+---+---+ + +---+ | | | + +---+ | fentaNYL (PF) 50 mcg/mL | | | injection Starting 08/06/19 | | | at 1522, For 1 dose, Marry, | | | Elisha: steven colin, | | + +---+ | | | + +---+ + +-------+ +--------+---+---+ | fentaNYL (PF) injection 25 mcg | Given | 08/06/19 | 25 mcg | | | | 25 mcg, Intravenous, EVERY 3 | | 20 10:08 | | | | | HOURS PRN, Other, breakthrough | | AM PDT | | | | | pain, Starting 08/04/19 at | | | | | | | 1712 | | | | | | + +-------+ +--------+---+---+ +-------+ +--------+---+---+ | Given | 08/06/19 | 25 mcg | | | | | 20 4:48 | | | | | | AM PDT | | | | +-------+ +--------+---+---+ | Given | 08/06/19 | 25 mcg | | | | | 20 1:51 | | | | | | AM PDT | | | | +-------+ +--------+---+---+ +---+---+ | | | +---+---+ + +-------+ +--------+---+---+ | fentaNYL (PF) injection 25-50 | Given | 08/06/19 | 25 mcg | | | | mcg 25-50 mcg, Intravenous, | | 20 3:24 | | | | | EVERY 5 MIN PRN, Pain, Initial | | PM PDT | | | | | postop medication for URGENT PAIN | | | | | | | OR ESCALATING PAIN, Starting Fri | | | | | | | 08/06/19 at 1521, For 4 doses, | | | | | | | First dose must be lowest dose. | | | | | | | Use Pasero Sedation Scale. | | | | | | | [Opioid tolerant = One week or | | | | | | | longer, batpfh-rhf-exnmw use of | | | | | | | at least the following DAILY | | | | | | | dose: 60mg oral morphine, 60mg | | | | | | | oral hydrocodone, 30mg oral | | | | | | | oxycodone, 8mg oral | | | | | | | hydromorphone, fentanyl patch | | | | | | | 25mcg/hr, or equivalent dose of | | | | | | | another opioid], Recovery/Phase I | | | | | | + +-------+ +--------+---+---+ +---+---+ | | | +---+---+ + +-------+ +-------+---+---+ | hydrALAZINE (APRESOLINE) | Given | 08/06/19 | 10 mg | | | | injection 10 mg 10 mg, | | 20 7:40 | | | | | Intravenous, EVERY 4 HOURS PRN, | | PM PDT | | | | | Option 1 for SBP >160 mmHg. If | | | | | | | SBP still greater than 160 mmHg | | | | | | | after 15 minutes may proceed to | | | | | | | option 2, labetalol, if HR > 60 | | | | | | | BPM, Starting 08/06/19 at 1906 | | | | | | + +-------+ +-------+---+---+ +---+---+ | | | +---+---+ + +-------+ +---------+---+---+ | HYDROcodone-acetaminophen | Given | 08/05/19 | 2 | | | | (NORCO) 5-325 mg per tablet 1-2 | | 20 7:31 | tablets | | | | tablet 1-2 tablet, Oral, EVERY 4 | | AM PDT | | | | | HOURS PRN, Pain, Moderate Pain, | | | | | | | Starting 07/31/19 at 2357, If | | | | | | | ineffective use Tracy 10/325 if | | | | | | | ordered. If not tolerated, use | | | | | | | Percocet then Oxycodone if | | | | | | | ordered., | | | | | | + +-------+ +---------+---+---+ +-------+ +---------+---+---+ | Given | 08/05/19 | 2 | | | | | 20 1:45 | tablets | | | | | AM PDT | | | | +-------+ +---------+---+---+ | Given | 08/04/19 | 2 | | | | | 20 9:42 | tablets | | | | | PM PDT | | | | +-------+ +---------+---+---+ +---+---+ | | | +---+---+ + +-------+ +--------+---+---+ | HYDROmorphone (DILAUDID) | Given | 08/04/19 | 0.5 mg | | | | injection 0.5 mg 0.5 mg, | | 20 6:17 | | | | | Intravenous, EVERY 10 MIN PRN, | | AM PDT | | | | | Moderate Pain, Pain, Starting Sat | | | | | | | 07/31/19 at 2205, For 3 doses | | | | | | + +-------+ +--------+---+---+ +-------+ +--------+---+---+ | Given | 08/04/19 | 0.5 mg | | | | | 20 2:09 | | | | | | AM PDT | | | | +-------+ +--------+---+---+ | Given | 07/31/19 | 0.5 mg | | | | | 20 10:45 | | | | | | PM PDT | | | | +-------+ +--------+---+---+ +---+---+ | | | +---+---+ + +-------+ + +---+ + | insulin glargine (LANTUS | Given | 08/07/19 | 15 Units | | Abdomen- | | SOLOSTAR) injection (pen) | | 20 6:34 | | | LLQ | | Units 15 Units, Subcutaneous, | | AM PDT | | | | | EVERY MORNING, First dose (after | | | | | | | last modification) on Fri08/02/19 | | | | | | | at 0900, For subcutaneous use | | | | | | | only. Basal (long acting) | | | | | | | insulin., If NPO: Decrease dose, | | | | | | | by: 50% | | | | | | + +-------+ + +---+ + +-------+ + +---+ + | Given | 08/06/19 | 15 Units | | Abdomen- | | | 20 9:40 | | | LLQ | | | AM PDT | | | | +-------+ + +---+ + | Given | 08/05/19 | 15 Units | | Abdomen- | | | 20 8:53 | | | RUQ | | | AM PDT | | | | +-------+ + +---+ + +---+---+ | | | +---+---+ + +-------+ + +---+ + | insulin glargine (LANTUS | Given | 08/01/19 | 15 Units | | Arm-Righ | | SOLOSTAR) injection (pen) 15 | | 20 3:25 | | | t Upper | | Units 15 Units, Subcutaneous, | | PM PDT | | | | | ONCE, 08/01/19 at 1500, For 1 | | | | | | | dose, For subcutaneous use only. | | | | | | | Basal (long acting) insulin., If | | | | | | | NPO: Give dose as ordered. | | | | | | + +-------+ + +---+ + +---+---+ | | | +---+---+ + +-------+ +---------+---+ + | insulin lispro (humaLOG) | Given | 08/07/19 | 2 Units | | Arm-Left | | injection (vial) 0-12 Units 0-12 | | 20 1:00 | | | Upper | | Units, Subcutaneous, 4 TIMES | | PM PDT | | | | | DAILY WITH MEALS & NIGHTLY, First | | | | | | | dose on 08/01/19 at 1700, | | | | | | | CORRECTION SCALE: Blood Glucose | | | | | | | (BG) < 150: None | | | | | | | BG 150-200: DAY: 2 units. | | | | | | | NIGHT: 0 units BG 201-250: DAY: | | | | | | | 4 units. NIGHT: 2 units BG | | | | | | | 251-300: DAY: 6 units. NIGHT: | | | | | | | 4 units BG 301-350: DAY: 8 | | | | | | | units. NIGHT: 6 units BG | | | | | | | 351-400: DAY: 10 units. NIGHT: 8 | | | | | | | units BG > 400 : DAY: 12 | | | | | | | units. NIGHT: 10 units | | | | | | | AND CALL PROVIDER | | | | | | | , Use DAY DOSE for doses | | | | | | | scheduled: AC, NPO, Daytime | | | | | | | [phone] Use NIGHT DOSE for | | | | | | | doses scheduled: HS, | | | | | | | Nighttime [phone] If the BG is | | | | | | | not checked before the patient | | | | | | | starts eating, do not give | | | | | | | correction insulin. Only for use | | | | | | | with U-100 insulin syringe., | | | | | | + +-------+ +---------+---+ + +-------+ +---------+---+ + | Given | 08/07/19 | 2 Units | | Abdomen- | | | 20 6:34 | | | LLQ | | | AM PDT | | | | +-------+ +---------+---+ + | Given | 08/06/19 | 2 Units | | Abdomen- | | | 20 1:00 | | | LLQ | | | PM PDT | | | | +-------+ +---------+---+ + +---+---+ | | | +---+---+ + + + + +-------+---+ | insulin regular (humuLIN R, | Rate/Dos | 08/01/19 | 3.8 | 3.8 | | | novoLIN R) 1 Units/mL in sodium | e Verify | 20 1:40 | Units/hr | mL/hr | | | chloride 0.9% 250 mL infusion | | PM PDT | | | | | (EndoTool) 0.1-50 Units/hr | | | | | | | (0.1-50 mL/hr), at 0.1-50 mL/hr, | | | | | | | Intravenous, TITRATED, Starting | | | | | | | 07/31/19 at 2155, Discontinue | | | | | | | any other insulin or oral | | | | | | | diabetes medications. Titration | | | | | | | of insulin per EndoTool | | | | | | | guidelines. Attach insulin drip | | | | | | | into "Y" site of normal saline IV | | | | | | | running @ 30 mL/hr. Prime tubing | | | | | | | with 30 mL of insulin infusion, | | | | | | | prior to starting infusion., | | | | | | + + + + +-------+---+ + + + +---------+---+ | Rate/Dose Change | 08/01/19 | 3.8 | 3.8 | | | | 20 11:29 | Units/hr | mL/hr | | | | AM PDT | | | | + + + +---------+---+ | Rate/Dose Change | 08/01/19 | 5 | 5 mL/hr | | | | 20 10:03 | Units/hr | | | | | AM PDT | | | | + + + +---------+---+ +---+---+ | | | +---+---+ + + + + +---+---+ | insulin regular bolus from bag | Bolus | 07/31/19 | 10 Units | | | | (EndoTool) 1-50 Units 1-50 | from Bag | 20 10:12 | | | | | Units, Intravenous, EVERY 15 MIN | | PM PDT | | | | | PRN, High Blood Sugar, Starting | | | | | | | 07/31/19 at 2152, Per EndoTool | | | | | | | guidelines., | | | | | | + + + + +---+---+ +---+---+ | | | +---+---+ + +-------+ +---------+---+---+ | iohexol (OMNIPAQUE 350) 350 | Given | 07/31/19 | 100 mLs | | | | mg/mL injection 100 mL 100 mL, | | 20 10:25 | | | | | Intravenous, ONCE PRN, Other, | | PM PDT | | | | | Starting 07/31/19 at 2210, For | | | | | | | 1 dose, Cat Scanner | | | | | | + +-------+ +---------+---+---+ +---+---+ | | | +---+---+ + +-------+ +---------+---+---+ | iohexol (OMNIPAQUE 350) 350 | Given | 08/05/19 | 100 mLs | | | | mg/mL injection 100 mL 100 mL, | | 20 11:15 | | | | | Intravenous, ONCE PRN, Other, | | AM PDT | | | | | Starting [facility] 08/05/19 at 1105, For | | | | | | | 1 dose, Cat Scanner | | | | | | + +-------+ +---------+---+---+ +---+---+ | | | +---+---+ + +-------+ +-------+---+---+ | ketorolac (TORADOL) injection | Given | 07/31/19 | 15 mg | | | | 15 mg 15 mg, Intravenous, ONCE, | | 20 8:56 | | | | | 07/31/19 at 2035, For 1 dose | | PM PDT | | | | + +-------+ +-------+---+---+ + +---+ | | | + +---+ | labetalol (TRANDATE) 5 mg/mL | | | injection 10-20 mg 10-20 mg, | | | Intravenous, EVERY 4 HOURS PRN, | | | Option 2 for SBP >160 mmHg if HR | | | > 60 BPM, Starting 08/06/19 at | | | 1913 | | + +---+ | | | + +---+ + +-------+ +------+---+---+ | labetalol (TRANDATE) 5 mg/mL | Given | 08/06/19 | 5 mg | | | | injection 5 mg 5 mg, | | 20 3:36 | | | | | Intravenous, EVERY 5 MIN PRN, For | | PM PDT | | | | | SBP > 180, DBP > 100, Starting | | | | | | | 08/06/19 at 1521, Hold if HR < | | | | | | | 60. Maximum total dose 300mg. | | | | | | | Notify anesthesia if patient | | | | | | | requires more than 50mg., | | | | | | | Recovery/Phase I | | | | | | + +-------+ +------+---+---+ +---+---+ | | | +---+---+ + +-------+ +-------+---+---+ | lisinopril (PRINIVIL, ZESTRIL) | Given | 08/05/19 | 20 mg | | | | tablet 20 mg 20 mg, Oral, DAILY, | | 20 8:48 | | | | | First dose on 08/01/19 at | | AM PDT | | | | | 0900 | | | | | | + +-------+ +-------+---+---+ +-------+ +-------+---+---+ | Given | 08/03/19 | 20 mg | | | | | 20 7:50 | | | | | | AM PDT | | | | +-------+ +-------+---+---+ | Given | 08/02/19 | 20 mg | | | | | 20 8:45 | | | | | | AM PDT | | | | +-------+ +-------+---+---+ +---+---+ | | | +---+---+ + +-------+ +-------+---+---+ | lisinopril (PRINIVIL, ZESTRIL) | Given | 08/06/19 | 20 mg | | | | tablet 20 mg 20 mg, Oral, DAILY, | | 20 9:31 | | | | | First dose (after last | | AM PDT | | | | | modification) on Fri08/06/19 at | | | | | | | 0900 | | | | | | + +-------+ +-------+---+---+ +---+---+ | | | +---+---+ + +-------+ +-------+---+---+ | lisinopril (PRINIVIL, ZESTRIL) | Given | 08/07/19 | 40 mg | | | | tablet 40 mg 40 mg, Oral, DAILY, | | 20 8:19 | | | | | First dose (after last | | AM PDT | | | | | modification) on Fri08/07/19 at | | | | | | | 0900 | | | | | | + +-------+ +-------+---+---+ +---+---+ | | | +---+---+ + +---------+ +-----+ +---+ | magnesium sulfate 2 g/50 mL | New Bag | 08/01/19 | 2 g | 25 mL/hr | | | IVPB 2 g 2 g, Intravenous, | | 20 6:30 | | | | | Administer over 120 Minutes, | | PM PDT | | | | | ONCE, 08/01/19 at 1500, For 1 | | | | | | | dose, Maximum recommended | | | | | | | infusion rate = 1 gram/hour., | | | | | | + +---------+ +-----+ +---+ +---+---+ | | | +---+---+ + +-------+ +-------+---+---+ | metoclopramide (REGLAN) 5 mg/mL | Given | 08/07/19 | 10 mg | | | | injection 10 mg 10 mg, | | 20 12:07 | | | | | Intravenous, EVERY 6 HOURS (4 | | PM PDT | | | | | times per day), First dose on Sun | | | | | | | 08/01/19 at 1445, Protect from | | | | | | | light., | | | | | | + +-------+ +-------+---+---+ +-------+ +-------+---+---+ | Given | 08/07/19 | 10 mg | | | | | 20 6:12 | | | | | | AM PDT | | | | +-------+ +-------+---+---+ | Given | 08/06/19 | 10 mg | | | | | 20 11:10 | | | | | | PM PDT | | | | +-------+ +-------+---+---+ +---+---+ | | | +---+---+ + +-------+ +-------+---+---+ | metoclopramide (REGLAN) 5 mg/mL | Given | 08/06/19 | 10 mg | | | | injection 10 mg 10 mg, | | 20 7:39 | | | | | Intravenous, EVERY 6 HOURS PRN, | | PM PDT | | | | | Nausea, Vomiting, Starting Fri | | | | | | | 08/06/19 at 1207, Protect from | | | | | | | light., | | | | | | + +-------+ +-------+---+---+ +---+---+ | | | +---+---+ + +-------+ +--------+---+---+ | metroNIDAZOLE (FLAGYL) tablet | Given | 08/07/19 | 500 mg | | | | 500 mg 500 mg, Oral, EVERY 8 | | 20 1:50 | | | | | HOURS (3 times per day), First | | PM PDT | | | | | dose on Fri08/03/19 at 2000, For | | | | | | | 4 days, Indications: ENTERITIS | | | | | | | AND COLITIS | | | | | | + +-------+ +--------+---+---+ +-------+ +--------+---+---+ | Given | 08/07/19 | 500 mg | | | | | 20 6:12 | | | | | | AM PDT | | | | +-------+ +--------+---+---+ | Given | 08/06/19 | 500 mg | | | | | 20 11:10 | | | | | | PM PDT | | | | +-------+ +--------+---+---+ +---+---+ | | | +---+---+ + +---------+ +--------+-------+---+ | metroNIDAZOLE in saline | New Bag | 08/03/19 | 500 mg | 100 | | | (FLAGYL) IVPB 500 mg 500 mg, | | 20 11:12 | | mL/hr | | | Intravenous, Administer over 1 | | AM PDT | | | | | Hours, EVERY 8 HOURS INTERVAL, | | | | | | | First dose on 08/01/19 at | | | | | | | 0045, Do not refrigerate., | | | | | | | Indications: ENTERITIS AND | | | | | | | COLITIS | | | | | | + +---------+ +--------+-------+---+ +---------+ +--------+-------+---+ | New Bag | 08/03/19 | 500 mg | 100 | | | | 20 3:00 | | mL/hr | | | | AM PDT | | | | +---------+ +--------+-------+---+ | New Bag | 08/02/19 | 500 mg | 100 | | | | 20 7:53 | | mL/hr | | | | PM PDT | | | | +---------+ +--------+-------+---+ +---+---+ | | | +---+---+ + +-------+ +------+---+---+ | ondansetron (ZOFRAN ODT) | Given | 08/01/19 | 4 mg | | | | disintegrating tablet 4 mg 4 mg, | | 20 5:33 | | | | | Oral, EVERY 6 HOURS PRN, Nausea, | | AM PDT | | | | | Vomiting, Starting 07/31/19 | | | | | | | at 2357, First line agent, | | | | | | + +-------+ +------+---+---+ +---+---+ | | | +---+---+ + +-------+ +------+---+---+ | ondansetron (ZOFRAN) injection | Given | 07/31/19 | 4 mg | | | | 4 mg 4 mg, Intravenous, EVERY 1 | | 20 8:54 | | | | | HOUR PRN, Nausea, Vomiting, | | PM PDT | | | | | Starting 07/31/19 at 2032, For | | | | | | | 2 doses | | | | | | + +-------+ +------+---+---+ +---+---+ | | | +---+---+ + +-------+ +------+---+---+ | ondansetron (ZOFRAN) injection | Given | 08/01/19 | 4 mg | | | | 4 mg 4 mg, Intravenous, EVERY 6 | | 20 7:59 | | | | | HOURS PRN, Nausea, Vomiting, | | PM PDT | | | | | Starting 07/31/19 at 2357, | | | | | | | First line agent, | | | | | | + +-------+ +------+---+---+ +-------+ +------+---+---+ | Given | 08/01/19 | 4 mg | | | | | 20 5:58 | | | | | | AM [...] +---+---+ | | | +---+---+ + +-------+ +-------+---+---+ | oxyCODONE (ROXICODONE) tablet | Given | 08/07/19 | 10 mg | | | | 5-10 mg 5-10 mg, Oral, EVERY 4 | | 20 12:08 | | | | | HOURS PRN, Pain, Starting Marina | | PM PDT | | | | | 08/05/19 at 1215 | | | | | | + +-------+ +-------+---+---+ +-------+ +-------+---+---+ | Given | 08/07/19 | 10 mg | | | | | 20 6:12 | | | | | | AM PDT | | | | +-------+ +-------+---+---+ | Given | 08/07/19 | 10 mg | | | | | 20 1:49 | | | | | | AM PDT | | | | +-------+ +-------+---+---+ +---+---+ | | | +---+---+ + +-------+ +-------+---+---+ | pantoprazole (PROTONIX) DR | Given | 08/07/19 | 40 mg | | | | tablet 40 mg 40 mg, Oral, 2 | | 20 8:20 | | | | | TIMES DAILY, First dose on Fri | | AM PDT | | | | | 08/06/19 at 1145, Do not cut or | | | | | | | crush., Indication: GERD | | | | | | + +-------+ +-------+---+---+ +-------+ +-------+---+---+ | Given | 08/06/19 | 40 mg | | | | | 20 7:38 | | | | | | PM PDT | | | | +-------+ +-------+---+---+ +---+---+ | | | +---+---+ + +-------+ +--------+---+---+ | potassium chloride (KLOR-CON) | Given | 07/31/19 | 20 mEq | | | | ER tablet 20 mEq 20 mEq, Oral, | | 20 10:34 | | | | | ONCE, 07/31/19 at 2200, For 1 | | PM PDT | | | | | dose, May take with food to | | | | | | | decrease GI upset. May take with | | | | | | | food to decrease GI upset., | | | | | | + +-------+ +--------+---+---+ +---+---+ | | | +---+---+ + +-------+ +--------+---+---+ | potassium chloride (KLOR-CON) | Given | 08/05/19 | 40 mEq | | | | ER tablet 20-40 mEq 20-40 mEq, | | 20 11:07 | | | | | Oral, DAILY PRN, Per protocol, | | AM PDT | | | | | Starting Tu08/03/19 at 0749, | | | | | | | NON-ICU Protocol Replace | | | | | | | potassium once per day based on | | | | | | | morning potassium level. Use | | | | | | | scale below to determine dose. If | | | | | | | further replacement is required | | | | | | | after this morning dose of | | | | | | | potassium, notify provider | | | | | | | Protocol NOT recommended if Scr > | | | | | | | 1.8, dialysis patients or CrCl < | | | | | | | 50 mL/min [K+] =3.6 - 4 mEql/L | | | | | | | Give 20 mEq KCl PO x 1 dose | | | | | | | [K+] 3.0 - 3.5 mEql/L Give 40 | | | | | | | mEq KCl PO x 1 dose [K+] < 3.0 | | | | | | | mEq/L Notify provider * | | | | | | | Recheck K+ 4 hours after | | | | | | | replacement is done. Give either | | | | | | | tablet, liquid, or IV but never | | | | | | | more than one form. If repeat K | | | | | | | is still < 3.5, contact provider | | | | | | | for further instruction. May take | | | | | | | with food to decrease GI upset., | | | | | | | | | | | | | + +-------+ +--------+---+---+ +-------+ +--------+---+---+ | Given | 08/04/19 | 40 mEq | | | | | 20 10:04 | | | | | | AM PDT | | | | +-------+ +--------+---+---+ +---+---+ | | | +---+---+ + +-------+ +--------+---+---+ | potassium chloride (KLOR-CON) | Given | 08/05/19 | 40 mEq | | | | ER tablet 40 mEq 40 mEq, Oral, | | 20 5:39 | | | | | DAILY WITH DINNER, First dose on | | PM PDT | | | | | Marina 08/05/19 at 1730, For 5 days, | | | | | | | May take with food to decrease GI | | | | | | | upset., | | | | | | + +-------+ +--------+---+---+ + +---+ | | | + +---+ | potassium chloride (KLOR-CON) | | | packet 20-40 mEq 20-40 mEq, Per | | | G Tube, DAILY PRN, Per Protocol, | | | Starting 08/03/19 at 0749, | | | NON-ICU Protocol Replace | | | potassium once per day based on | | | morning potassium level. Use | | | scale below to determine dose. If | | | further replacement is required | | | after this morning dose of | | | potassium, notify provider | | | Protocol NOT recommended if Scr > | | | 1.8, dialysis patients or CrCl < | | | 50 mL/min [K+] =3.6 - 4 mEql/L | | | Give 20 mEq KCl PO x 1 dose | | | [K+] 3.0 - 3.5 mEql/L Give 40 | | | mEq KCl PO x 1 dose [K+] < 3.0 | | | mEq/L Notify provider * | | | Recheck K+ 4 hours after | | | replacement is done. Give either | | | tablet, liquid, or IV but never | | | more than one form. If repeat K | | | is still < 3.5, contact provider | | | for further instruction., | | + +---+ | | | + +---+ + + + +---+-------+---+ | potassium chloride 20 mEq in | Rate/Dos | 08/06/19 | | 130 | | | sodium chloride 0.9% 250 mL IVPB | e Verify | 20 3:05 | | mL/hr | | | 20 mEq, Intravenous, Administer | | PM PDT | | | | | over 2 Hours, DAILY PRN, Per | | | | | | | protocol, Starting Fri08/03/19 at | | | | | | | 0749, NON-ICU Protocol Replace | | | | | | | potassium once per day based on | | | | | | | morning potassium level. Use | | | | | | | scale below to determine dose. If | | | | | | | further replacement is required | | | | | | | after this morning dose of | | | | | | | potassium, notify provider | | | | | | | Protocol NOT recommended if Scr > | | | | | | | 1.8, dialysis patients or CrCl < | | | | | | | 50 mL/min [K+] =3.6 - 4 mEql/L | | | | | | | Give 20 mEq KCl IV X 1 dose | | | | | | | * Recheck K+ 2 hours after | | | | | | | replacement is done. Give either | | | | | | | tablet, liquid, or IV but never | | | | | | | more than one form. If repeat K | | | | | | | is still < 3.5, contact provider | | | | | | | for further instruction., | | | | | | + + + +---+-------+---+ +---+---+ | | | +---+---+ + +---------+ +--------+-------+---+ | potassium chloride 40 mEq in | New Bag | 08/02/19 | 40 mEq | 130 | | | sodium chloride 0.9% 500 mL IVPB | | 20 8:49 | | mL/hr | | | 40 mEq, Intravenous, Administer | | AM PDT | | | | | over 4 Hours, ONCE, 08/02/19 | | | | | | | at 0645, For 1 dose | | | | | | + +---------+ +--------+-------+---+ +---+---+ | | | +---+---+ + +---------+ +--------+-------+---+ | potassium chloride 40 mEq in | New Bag | 08/02/19 | 40 mEq | 130 | | | sodium chloride 0.9% 500 mL IVPB | | 20 5:04 | | mL/hr | | | 40 mEq, Intravenous, Administer | | PM PDT | | | | | over 4 Hours, ONCE, 08/02/19 | | | | | | | at 1400, For 1 dose | | | | | | + +---------+ +--------+-------+---+ +---+---+ | | | +---+---+ + +---------+ +--------+-------+---+ | potassium chloride 40 mEq in | New Bag | 08/07/19 | 40 mEq | 130 | | | sodium chloride 0.9% 500 mL IVPB | | 20 8:20 | | mL/hr | | | 40 mEq, Intravenous, Administer | | AM PDT | | | | | over 4 Hours, DAILY PRN, Per | | | | | | | protocol, Starting 08/03/19 at | | | | | | | 0749, NON-ICU Protocol Replace | | | | | | | potassium once per day based on | | | | | | | morning potassium level. Use | | | | | | | scale below to determine dose. If | | | | | | | further replacement is required | | | | | | | after this morning dose of | | | | | | | potassium, notify provider | | | | | | | Protocol NOT recommended if Scr > | | | | | | | 1.8, dialysis patients or CrCl < | | | | | | | 50 mL/min [K+] 3.0 - 3.5 mEql/L | | | | | | | Give 40 mEq KCl IV X 1 dose | | | | | | | * Recheck K+ 2 hours after | | | | | | | replacement is done. Give either | | | | | | | tablet, liquid, or IV but never | | | | | | | more than one form. If repeat K | | | | | | | is still < 3.5, contact provider | | | | | | | for further instruction., | | | | | | + +---------+ +--------+-------+---+ +---------+ +--------+-------+---+ | New Bag | 08/06/19 | 40 mEq | 130 | | | | 20 11:33 | | mL/hr | | | | AM PDT | | | | +---------+ +--------+-------+---+ | New Bag | 08/05/19 | 40 mEq | 130 | | | | 20 5:40 | | mL/hr | | | | PM PDT | | | | +---------+ +--------+-------+---+ +---+---+ | | | +---+---+ + +---------+ +--------+-------+---+ | potassium chloride 40 mEq in | New Bag | 08/03/19 | 40 mEq | 130 | | | sodium chloride 0.9% 500 mL IVPB | | 20 9:49 | | mL/hr | | | 40 mEq, Intravenous, Administer | | AM PDT | | | | | over 4 Hours, ONCE, [facility] 08/03/19 | | | | | | | at 0830, For 1 dose | | | | | | + +---------+ +--------+-------+---+ +---+---+ | | | +---+---+ + +---------+ +---------+ +---+ | potassium phosphate 30 mmol in | New Bag | 08/01/19 | 30 mmol | 85 mL/hr | | | dextrose 5% 500 mL IVPB 30 mmol, | | 20 6:23 | | | | | Intravenous, Administer over 6 | | PM PDT | | | | | Hours, ONCE, [place] 08/01/19 at 1500, | | | | | | | For 1 dose, Peripheral Line | | | | | | | Concentration. Infusion rate 7 | | | | | | | mmol/hr (10mEq K+) each 10 mmol | | | | | | | contains approx 15 mEq of | | | | | | | Potassium, | | | | | | + +---------+ +---------+ +---+ +---+---+ | | | +---+---+ + +-------+ +---------+---+---+ | promethazine (PHENERGAN) (IV | Given | 08/01/19 | 12.5 mg | | | | ONLY) injection 12.5 mg 12.5 mg, | | 20 11:44 | | | | | Intravenous, EVERY 4 HOURS PRN, | | AM PDT | | | | | Nausea, Vomiting, Other, | | | | | | | abdominal pain, Starting Sat | | | | | | | 07/31/19 at 2357, Vesicant. When | | | | | | | ordered IV push: Dilute to | | | | | | | 10-20mL with NS. Give over 2-3 | | | | | | | minutes into large vein. Do not | | | | | | | give in hand/wrist or foot/ankle | | | | | | | vein. Max dose 12.5mg if giving | | | | | | | peripherally.Infuse in LARGE | | | | | | | Vein Only, | | | | | | + +-------+ +---------+---+---+ +---+---+ | | | +---+---+ + +---------+ +--------+-------+---+ | sodium chloride 0.9% (NS) bolus | New Bag | 07/31/19 | 1,000 | 2000 | | | 1,000 mL 1,000 mL, Intravenous, | | 20 8:47 | mLs | mL/hr | | | Administer over 30 Minutes, | | PM PDT | | | | | ONCE, 07/31/19 at 2035, For 1 | | | | | | | dose | | | | | | + +---------+ +--------+-------+---+ +---+---+ | | | +---+---+ + +---------+ +--------+-------+---+ | sodium chloride 0.9% (NS) bolus | New Bag | 07/31/19 | 1,000 | 2000 | | | 1,000 mL 1,000 mL, Intravenous, | | 20 10:20 | mLs | mL/hr | | | Administer over 30 Minutes, | | PM PDT | | | | | ONCE, 07/31/19 at 2130, For 1 | | | | | | | dose | | | | | | + +---------+ +--------+-------+---+ + +---+ | | | + +---+ | sodium chloride 0.9% (NS) | | | infusion at 30 mL/hr, | | | Intravenous, CONTINUOUS PRN, | | | Start when insulin infusion is | | | discontinued., Starting Sat | | | 07/31/19 at 2152, When PO | | | tolerated and if anion gap is 12 | | | or less (closed) then saline lock | | | IV., | | + +---+ | | | + +---+ + +-------+ +-------+---+---+ | traMADol (ULTRAM) tablet 50 mg | Given | 08/06/19 | 50 mg | | | | 50 mg, Oral, EVERY 6 HOURS PRN, | | 20 8:43 | | | | | Pain, Starting 08/06/19 at | | PM PDT | | | | | 0955 | | | | | | + +-------+ +-------+---+---+ +---+---+ | | | +---+---+ documented in this encounter Additional Health Concerns + + + + | Infection | Noted Time | Resolved Time | + + + + | Rule out C. Difficile | 07/31/2019 11:57 PM | 08/02/2019 3:42 PM | | | PDT | PDT | + + + + documented as of this encounter
--- OUTSIDE RECORDS SUMMARY | ~2019-10-13 | XMS | Encounter Summary ---
Demographics + + + | Address | [address] | | | [place] [address] | + + + | Home Phone | | + + + | Preferred Language | Unknown | + + + | Marital Status | Single | + + + | Shinto Affiliation | Unknown | + + + | Race | Unknown | + + + | Ethnic Group | Unknown | + + + Author + + + | Author | [facility] | | | and [place] | + + + | Organization | [facility] | | [...] Team Providers + +------+ + | Care Passenger Rate Clerk Name | Role | Phone | + [...] +--------+--------+ + + + + Encounter Details +--------+---------+ + + + | Date | Type | Department | Care Team | Description | +--------+---------+ + + + | 08/05/ | Surgery | JULISSA ANTHONY | Tran Vidal | EGD | | 2020 | | [facility] | MD Abbe [address] | | | | | HITESH CABA [address] | [address] [place], [place] | | | | | [place], [place] | [address] | | | | | [address] | | | | | | [phone] | | | +--------+---------+ + + + Social History + +-------+ [...] Patient denied any questions. 1: 40 PM Dion Hsieh MD - 08/07/2019 10:22 AM PDTFormatting of [...] pain. The patient has serum ketones and masr vated anion gap with elevated blood sugar. [...] [phone] Recent Labs Lab 08/07/19 0421 08/06/19 0423 08/05/19 1511 08/05/19 0437 NA 140 [...] Date/Time Clostridium difficile A and B EIA [[id number]] Order Status: Canceled Lab Status: No result [...] as detailed above. Signed by: Trinh Benítez, Papoder Sign Date/Time: 08/05/2019 11:38 AM US Abdomen [...] follow with pcp Discharge Information: Follow up: [address] [phone] Go on 08/09/2019 you have been scheduled for a follow up on Tuesday 08/08 at 3:20 . Tho mcneil maggie kelvin para el 08/08 a las [...] medication strength how much to take aka: TONYA GARSIASTRIL Start: August 08, 2019 Unchanged Medications Details [...] + documented as of this encounter Progress Notes Luann Underwood RN - 08/07/2019 6:17 AM PDTNo acute [...] Hsieh MD - 08/06/2019 10:19 AM PDT [facility] Service: Hospitalist Progress Note Pt: Sacha Rodriguez [...] Behavior is normal. LABS: Recent Labs Lab 08/06/1942208/05/1943608/04/19 0535 WBC 6.63 5.15 5.68 HGB 13.4 12.8* 13.3 HCT 38.9* 37.3* 38.0* PLT 304 283 299 MONOPCT 11.30 15.70 12.90 Recent Labs Lab 08/06/1942208/05/19 1511 08/05/1943608/04/1953408/03/19 0543 08/02/19 0424 NA 139 -- 137 [...] the last 168 hours. Recent Labs Lab 08/04/1953408/03/1943 08/02/19 042 MG 2.3 2.3 2.2 No results for input(s): AMYLASE in the last 168 hours. No results for input(s): PHART, PO2ART, SMC5DLZ, P6KBLFLX, BEART in the last 168 hours. No [...] as detailed above. Signed by: Trinh Benítez, Tram Sign Date/Time: 08/05/2019 11:38 AM PROBLEM LIST [...] and managing patient and counseling/coordination. Dictation software, [employer], used which may contain error for similar sounding words even af ter review. Personal communication requested for any clarification. Portions of this chart may have been copied from previous notes for continuity of care purp ose Dion Hsieh MD - 08/05/2019 9:26 AM PDT [facility] Service: Hospitalist Progress Note Pt: Sacha Rodriguez [...] (98.4 F) Oral 73 16 96 % 08/04/192007 141/87 36.8 C (98.2 F) Oral 79 [...] Behavior is normal. LABS: Recent Labs Lab 08/05/19 0437 08/04/19 0535 08/03/19 0543 WBC 5.15 5.68 7.06 HGB 12.8* 13.3 12.5* HCT 37.3* 38.0* 35.5* PLT 283 299 275 MONOPCT 15.70 12.90 11.90 Recent Labs Lab 08/05/19 0437 08/04/19205008/04/19 1356 08/04/19 0535 08/03/19 0543 08/02/19 0424 NA 137 -- [...] hours. No results for input(s): PHART, PO2ART, LEF8VIR, A3BISHAB, BEART in the last 168 hours. No [...] and managing patient and counseling/coordination. Dictation software, [employer], used which may contain error for similar sounding words even af ter review. Personal communication requested for any clarification. Portions of this chart may have been copied from previous notes for continuity of care purp ose Dion Hsieh MD - 08/04/2019 9:44 AM PDT [facility] Service: Hospitalist Progress Note Pt: Sacha Rodriguez [...] is normal. LABS: Recent Labs Lab 08/04/19 0508/03/19 0543 08/02/19 0424 WBC 5.68 7.06 10.69 HGB 13.3 12.5* 11.6* HCT 38.0* 35.5* 32.8* PLT 299 275 261 MONOPCT 12.90 11.90 6.40 Recent Labs Lab 08/04/1953408/03/19 0543 08/02/19 0424 NA 133* 133* 132* K 2.7* 2.6* 2.6* CL 95* 96* 96* CO2 24 28 28 BUN 14 7* 4* CALCIUM 8.3* 7.9* 7.4* ALKPHOS 75 75 70 ALT 46 47 42 AST 16 23 36 Phosphorus: Lab Results Component Value Date PHOS 3.4 08/04/2019 No results for input(s): LABALBU in the last 168 hours. Recent Labs Lab 08/04/1953408/03/19 0543 08/02/19 0424 MG 2.3 2.3 2.2 No results for input(s): AMYLASE in the last 168 hours. No results for input(s): PHART, PO2ART, SXI4TLL, T3JASHXQ, BEART in the last 168 hours. No [...] in the hospital with the help of malachi de la vega RN Abdominal pain with possible colitis of [...] and managing patient and counseling/coordination. Dictation software, [employer], used which may contain error for similar sounding words even af ter review. Personal communication requested for any clarification. Portions of this chart may have been copied from previous notes for continuity of care purp ose ion Terrell MD - 08/03/2019 10:29 AM PDT [facility] Service: Hospitalist Progress Note Pt: Sacha Rodriguez AGE/SEX: 44 y.o. male ROOM: [address] [place] [address] : 1975 PCP: No Physician on file [...] Behavior is normal. LABS: Recent Labs Lab 08/03/1954208/02/1942308/01/19 0423 WBC 7.06 10.69 10.68 HGB 12.5* 11.6* 11.6* HCT 35.5* 32.8* 33.8* PLT 275 261 294 MONOPCT 11.90 6.40 7.20 Recent Labs Lab 08/03/1954208/02/194 08/01/19 1152 07/31/19 2041 NA 133* 132* [...] the last 168 hours. Recent Labs Lab 08/03/1943 08/02/19 0424 08/01/19 1152 MG 2.3 2.2 1.6* No results for input(s): AMYLASE in the last 168 hours. No results for input(s): PHART, PO2ART, MEV7JHQ, F7BRVRIB, BEART in the last 168 hours. No [...] and managing patient and counseling/coordination. Dictation software, [employer], used which may contain error for similar sounding words even af ter review. Personal communication requested for any clarification. Portions of this chart may have been copied from previous notes for continuity of care purp ose Pineda Avila MD - 08/02/2019 2:36 PM PDT [facility] Service: Hospitalist Progress Note Hospital Day: LOS: [...] Neuro Grossly Intact DATA Recent Labs Lab 08/02/1942308/01/19 0423 07/31/19 204 WBC 10.69 10.68 15.21* HGB 11.6* 11.6* 14.5 HCT 32.8* 33.8* 42.7 PLT 261 294 344 MONOPCT 6.40 7.20 4.10 Recent Labs Lab 08/02/1942308/01/19 1152 08/01/19 0746 07/31/19 204 NA 132* 136 137 < > 134* [...] the last 168 hours. Recent Labs Lab 08/02/1942308/01/19115108/01/19 0746 MG 2.2 1.6* 1.7 No results for input(s): AMYLASE in the last 168 hours. No results for input(s): PHART, PO2ART, KKL6MTH, F3YCKGUH, BEART in the last 168 hours. No [...] need insulin treatm ent as outpatient. Consult critical care educator Hypokalemia hypophosphatemia and hypomagnesemia replace all Home tomorrow with new start insulin therapy will need outpatient follow-up with endocrine. Code Status: Full Code Pineda Pace MD 08/02/2019 2:36 PM ineda Pace MD - 08/01/2019 2:20 PM PDT [facility] Service: Hospitalist Progress Note Hospital Day: LOS: [...] DATA Recent Labs Lab 08/01/19 0423 07/31/19 2041 WBC 10.68 15.21* HGB 11.6* 14.5 HCT 33.8* 42.7 PLT 294 344 MONOPCT 7.20 4.10 Recent Labs Lab 08/01/19 1152 08/01/19 0746 08/01/19 0423 07/31/19 2041 NA 136 137 137 134* K 3.0* [...] Recent Labs Lab 08/01/19 1152 08/01/19 0746 08/01/19 0423 MG 1.6* 1.7 1.6* No results for input(s): AMYLASE in the last 168 hours. No results for input(s): PHART, PO2ART, KRM9ISV, O7VXKSUX, BEART in the last 168 hours. No [...] hypomagnesemia replace all Code Status: Full Code Pineda Pace MD 08/01/2019 2:20 PM documented in [...] + +--------+ + + + | *TERMED* AK UPPER GI | Routin | 08/06/2019 | | Results for this | | ENDOSCOPY,EXAM | e | 2:32 PM | | procedure are in the | | | | PDT | | results section. | + +--------+ + + + | *TERMED* AK UPPER GI | Routin | 08/06/2019 | [...] for this | | CHEM REYNA TENA DOS | e | 1:31 PM | | [...] | | | POC | performed at [facility];[address] | | LABORATORY | | | | [address];[place] | | | | | | [address] | | | | + + + + + + + + | Specimen | + + | | + + + + + + + | Performing | Address | City/State/Zipcode | Phone Number | | Organization | | | | + + + + + | [facility] | [address] [facility] | [place] [address] | [phone] | + + + + + POC Glucose (08/07/2019 7:47 AM PDT) + + + + + + | Component | Value | Ref Range | Performed | Pathologist | | | | | At | Signature | + + + + + + | Glucose, | 179 (H)Comment: Testing | 65 - 99 mg/dL | [facility] | | | POC | performed at [facility];[address] | | LABORATORY | | | | [address];[place] | | | | | | [address] | | | | + + + + + + + + | Specimen | + + | | + + + + + + + | Performing | Address | City/State/Zipcode | Phone Number | | Organization | | | | + + + + + | [facility] | [address] | [place] [address] | [phone] | + + + + + POC Glucose (08/07/2019 6:26 AM PDT) + + + + + + | Component | Value | Ref Range | Performed | Pathologist | | | | | At | Signature | + + + + + + | Glucose, | 165 (H)Comment: Testing | 65 - 99 mg/dL | [facility] | | | POC | performed at [facility];[address] | | LABORATORY | | | | [address];[place] | | | | | | [address] | | | | + + + + + + + + | Specimen | + + | | + + + + + + + | Performing | Address | City/State/Zipcode | Phone Number | | Organization | | | | + + + + + | [facility] | [address] | [place] [address] | [phone] | + + + + + Basic [...] | | | | | performed at [facility];[address] | | | | | [address];[place] | | | | | | [address] | | | | + + + + + + + + | Specimen | + + | Blood | + + + + + + + | Performing | Address | City/State/Zipcode | Phone Number | | Organization | | | | + + + + + | [facility] | [address] | [place] [address] | [phone] | + + + + + Phosphorus (08/07/2019 4:21 AM PDT) + + + + + + | Component | Value | Ref Range | Performed | Pathologist | | | | | At | Signature | + + + + + + | Phosphorus | 3.2Comment: Testing | 2.3 - 4.8 mg/dL | [place] | | | | performed at [facility] | | LABORATORY | | | | [address];[place], [place] | | | | | | [address] | | | | + + + + + + + + | Specimen | + + | Blood | + + + + + + + | Performing | Address | City/State/Zipcode | Phone Number | | Organization | | | | + + + + + | [facility] | [address] | [place] [address] | [phone] | + + + + + CBC [...] | | | Absolute | performed at [facility];[address] | K[address] | LABORATORY | | | | [address];[place], [place] | | | | | | [address] | | | | + + + + + + + + | Specimen | + + | Blood | + + + + + + + | Performing | Address | City/State/Zipcode | Phone Number | | Organization | | | | + + + + + | [facility] | [address] [facility] | [place] [address] | [phone] | + + + + + POC [...] | | | POC | performed at [facility];[address] | | LABORATORY | | | | [address];[place], [place] | | | | | | [address] | | | | + + + + + + + + | Specimen | + + | | + + + + + + + | Performing | Address | City/State/Zipcode | Phone Number | | Organization | | | | + + + + + | [facility] | [address] | [place] [address] | [phone] | + + + + + US [...] Procedure Note | + + | Tobias, You Results In - 08/06/2019 7:13 PM PDT [...] Testing | 65 - 99 mg/dL | [facility] | | | POC | performed at [facility];[address] | | LABORATORY | | | | [address];[place] | | | | | | [address] | | | | + + + + + + + + | Specimen | + + | | + + + + + + + | Performing | Address | City/State/Zipcode | Phone Number | | Organization | | | | + + + + + | [facility] | [address] | [place] [address] | [phone] | + + + + + POC [...] | | | POC | performed at [facility];[address] | | LABORATORY | | | | [address];[place], [place] | | | | | | [address] | | | | + + + + + + + + | Specimen | + + | | + + + + + + + | Performing | Address | City/State/Zipcode | Phone Number | | Organization | | | | + + + + + | [facility] | [address] | [place] [address] | [phone] | + + + + + EGD (08/06/2019 2:32 PM PDT) + + | Specimen | + + | | + + + + + | Narrative | Performed At | + + + | Lila | YANETH | | [facility] | [facility] | | CenterGastroenterology | | | Patient Name: Minerva Rodriguez , | | | Sacha Procedure Date: 08/06/2019 2:32 PMMRN: [id number] | | | of : | | [...] | 08/06/2019 2:32 PMNumber of Addenda: 0 [facility] | | | - Continue present medications. | | | | | | | | |Tran Vidal MD | | |08/06/2019 3:02:25 PM | | |This report has been signed electronically. | | | | | |Note Initiated On: 08/06/2019 2:32 PM | | |Number of Addenda: 0 | | | | | | [facility] | | + + + + +---------+ [...] | Tran Vidal MD 08/06/2019 2:56 PM [facility] | [facility] | | [facility] Procedure: EGD | [facility] | | [...] | a gallbladder. Continue Protonix twice daily. Tran | | | Abbe Vidal MD 08/06/2019 This note may have | | | typographical errors. Please call with any questions or | | | clarifications. | | + + + + +---------+ + + | Performing | Address | City/State/[facility] | Phone Number | | Organization | [...] | Tetrahydroc | NEGATIVEComment: | NEG | [facility] | | | annabinol(T | Positive cutoff [...] | | | | | performed at [facility] | | | | | | [facility];[place], [place] | | | | | | [address] | | | | + + + [...] | + + + + + | [facility] | [address] | [place] [address] | [phone] | + + + + + POC Glucose (08/06/2019 11:55 AM PDT) + + + + + + | Component | Value | Ref Range | Performed | Pathologist | | | | | At | Signature | + + + + + + | Glucose, | 166 (H)Comment: Testing | 65 - 99 mg/dL | [facility] | | | POC | performed at [facility];[address] | | LABORATORY | | | | [address];[place] | | | | | | [address] | | | | + + + + + + + + | Specimen | + + | | + + + + + + + | Performing | Address | City/State/Zipcode | Phone Number | | Organization | | | | + + + + + | [facility] | [address] | [place] [address] | [phone] | + + + + + POC Glucose (08/06/2019 9:29 AM PDT) + + + + + + | Component | Value | Ref Range | Performed | Pathologist | | | | | At | Signature | + + + + + + | Glucose, | 180 (H)Comment: Testing | 65 - 99 mg/dL | [facility] | | | POC | performed at [facility];[address] | | LABORATORY | | | | [address];[place] | | | | | | [address] | | | | + + + + + + + + | Specimen | + + | | + + + + + + + | Performing | Address | City/State/Zipcode | Phone Number | | Organization | | | | + + + + + | [facility] | [address] | [place] [address] | [phone] | + + + + + POC [...] | | | POC | performed at [facility];[address] | | LABORATORY | | | | [address];[place], [place] | | | | | | [address] | | | | + + + + + + + + | Specimen | + + | | + + + + + + + | Performing | Address | City/State/Zipcode | Phone Number | | Organization | | | | + + + + + | [facility] | [address] | [place] [address] | [phone] | + + + + + Basic [...] | >60Comment: GFR <60: | >60 | [facility] | | | GFR | CHRONIC KIDNEY [...] | | | | | | MDRD IDPA traceable | | | | | | equation.Testing | | | | | | performed at [facility];[address] | | | | | | [facility];[place], [place] | | | | | | [address] | | | | + + + + + + + + | Specimen | + + | Blood | + + + + + + + | Performing | Address | City/State/Zipcode | Phone Number | | Organization | | | | + + + + + | [facility] | [address] | [place] [address] | [phone] | + + + + + Phosphorus (08/06/2019 4:23 AM PDT) + + + + + + | Component | Value | Ref Range | Performed | Pathologist | | | | | At | Signature | + + + + + + | Phosphorus | 2.7Comment: Testing | 2.3 - 4.8 mg/dL | [facility] | | | | performed at [facility];[address] | | LABORATORY | | | | [address];[place] | | | | | | [address] | | | | + + + + + + + + | Specimen | + + | Blood | + + + + + + + | Performing | Address | City/State/Zipcode | Phone Number | | Organization | | | | + + + + + | [facility] | [address] | [place] [address] | [phone] | + + + + + CBC [...] 0.03Comment: Testing | 0.00 - 0.10 | [facility] | | | Absolute | performed at [facility];[address] | K/uL | LABORATORY | | | | [facility];[place], [place] | | | | | | [address] | | | | + + + + + + + + | Specimen | + + | Blood | + + + + + + + | Performing | Address | City/State/Zipcode | Phone Number | | Organization | | | | + + + + + | [facility] | [address] | [place] [address] | [phone] | + + + + + POC [...] | | | POC | performed at [facility];[address] | | LABORATORY | | | | [address];[place] | | | | | | [address] | | | | + + + + + + + + | Specimen | + + | | + + + + + + + | Performing | Address | City/State/Zipcode | Phone Number | | Organization | | | | + + + + + | [facility] | [address] | [place] [address] | [phone] | + + + + + POC Glucose (08/05/2019 5:47 PM PDT) + + + + + + | Component | Value | Ref Range | Performed | Pathologist | | | | | At | Signature | + + + + + + | Glucose, | 185 (H)Comment: Testing | 65 - 99 mg/dL | [facility] | | | POC | performed at [facility];[address] | | LABORATORY | | | | [address];[place], [place] | | | | | | [address] | | | | + + + + + + + + | Specimen | + + | | + + + + + + + | Performing | Address | City/State/Zipcode | Phone Number | | Organization | | | | + + + + + | [facility] | [address] | [place] [address] | [phone] | + + + + + Potassium (08/05/2019 3:11 PM PDT) + + + + + + | Component | Value | Ref Range | Performed | Pathologist | | | | | At | Signature | + + + + + + | K | 3.0 (L)Comment: Testing | 3.5 - 4.9 | [facility] | | | | performed at [facility];[address] | mmol/L | LABORATORY | | | | [address];[place] | | | | | | [address] | | | | + + + + + + + + | Specimen | + + | Blood | + + + + + + + | Performing | Address | City/State/Zipcode | Phone Number | | Organization | | | | + + + + + | [facility] | [address] | [place] [address] | [phone] | + + + + + POC Glucose (08/05/2019 11:50 AM PDT) + + + + + + | Component | Value | Ref Range | Performed | Pathologist | | | | | At | Signature | + + + + + + | Glucose, | 184 (H)Comment: Testing | 65 - 99 mg/dL | [facility] | | | POC | performed at [facility];[address] | | LABORATORY | | | | [address];[place] | | | | | | [address] | | | | + + + + + + + + | Specimen | + + | | + + + + + + + | Performing | Address | City/State/Zipcode | Phone Number | | Organization | | | | + + + + + | [facility] | [address] [facility] | [place] [address] | [phone] | + + + + + CT [...] by: Jackelin | | | Tram Tsang Sign Date/Time: 08/05/2019 11:38 AM | | [...] | | | Signed by: Trinh Benítez, Pushpender | | Sign Date/Time: 08/05/2019 11:38 AM [...] Testing | 65 - 99 mg/dL | [facility] | | | POC | performed at [facility];[address] | | LABORATORY | | | | [address];[place] | | | | | | [address] | | | | + + + + + + + + | Specimen | + + | | + + + + + + + | Performing | Address | City/State/Zipcode | Phone Number | | Organization | | | | + + + + + | [facility] | [address] | [place] [address] | [phone] | + + + + + Basic [...] | | | | | performed at [facility], [address] | | | | | | [facility], | | | | | | [place] [address] | | | | + + + + + + + + | Specimen | + + | Blood | + + + + + + + | Performing | Address | City/State/Zipcode | Phone Number | | Organization | | | | + + + + + | [facility] | [address] | [place] [address] | [phone] | + + + + + Phosphorus (08/05/2019 4:37 AM PDT) + + + + + + | Component | Value | Ref Range | Performed | Pathologist | | | | | At | Signature | + + + + + + | Phosphorus | 2.2 (L)Comment: Testing | 2.3 - 4.8 mg/dL | [place] | | | | performed at [facility], [address] | | LABORATORY | | | | [address], | | | | | | [place] [address] | | | | + + + + + + + + | Specimen | + + | Blood | + + + + + + + | Performing | Address | City/State/Zipcode | Phone Number | | Organization | | | | + + + + + | [facility] | [address] | [place] [address] | [phone] | + + + + + CBC [...] | | | Absolute | performed at [facility], [address] | K/uL | LABORATORY | | | | [address], | | | | | | [place] [address] | | | | + + + + + + + + | Specimen | + + | Blood | + + + + + + + | Performing | Address | City/State/Zipcode | Phone Number | | Organization | | | | + + + + + | [facility] | [address] | [place] [address] | [phone] | + + + + + POC [...] | | | POC | performed at [facility];[address] | | LABORATORY | | | | [address];[place], [place] | | | | | | [phone] | | | | + + + + + + + + | Specimen | + + | | + + + + + + + | Performing | Address | City/State/Zipcode | Phone Number | | Organization | | | | + + + + + | [facility] | [address] | [place] [address] | [phone] | + + + + + Potassium (08/04/2019 8:51 PM PDT) + + + + + + | Component | Value | Ref Range | Performed | Pathologist | | | | | At | Signature | + + + + + + | K | 3.0 (L)Comment: Testing | 3.5 - 4.9 | [facility] | | | | performed at [facility];888 | mmol/L | LABORATORY | | | [address];[place] | | | | | | [address] | | | | + + + + + + + + | Specimen | + + | Blood | + + + + + + + | Performing | Address | City/State/Zipcode | Phone Number | | Organization | | | | + + + + + | [facility] | [address] | [place] [address] | [phone] | + + + + + POC Glucose (08/04/2019 5:22 PM PDT) + + + + + + | Component | Value | Ref Range | Performed | Pathologist | | | | | At | Signature | + + + + + + | Glucose, | 151 (H)Comment: Testing | 65 - 99 mg/dL | [facility] | | | POC | performed at [facility];[address] | | LABORATORY | | | | [address];[place], [place] | | | | | | [address] | | | | + + + + + + + + | Specimen | + + | | + + + + + + + | Performing | Address | City/State/Zipcode | Phone Number | | Organization | | | | + + + + + | [facility] | [address] | [place] [address] | [phone] | + + + + + Potassium (08/04/2019 1:56 PM PDT) + + + + + + | Component | Value | Ref Range | Performed | Pathologist | | | | | At | Signature | + + + + + + | K | 3.0 (L)Comment: Testing | 3.5 - 4.9 | [place] | | | | performed at [facility];[address] | mmol/L | LABORATORY | | | | [facility];[place], [place] | | | | | | [address] | | | | + + + + + + + + | Specimen | + + | Blood | + + + + + + + | Performing | Address | City/State/Zipcode | Phone Number | | Organization | | | | + + + + + | [facility] | [address] | [place] [address] | [phone] | + + + + + POC [...] | | | POC | performed at [facility];[address] | | LABORATORY | | | | [address];[place] | | | | | | [address] | | | | + + + + + + + + | Specimen | + + | | + + + + + + + | Performing | Address | City/State/Zipcode | Phone Number | | Organization | | | | + + + + + | [facility] | [address] | [place] [address] | [phone] | + + + + + POC Glucose (08/04/2019 8:03 AM PDT) + + + + + + | Component | Value | Ref Range | Performed | Pathologist | | | | | At | Signature | + + + + + + | Glucose, | 214 (H)Comment: Testing | 65 - 99 mg/dL | [facility] | | | POC | performed at [facility];[address] | | LABORATORY | | | | [address];[place] | | | | | | [address] | | | | + + + + + + + + | Specimen | + + | | + + + + + + + | Performing | Address | City/State/Zipcode | Phone Number | | Organization | | | | + + + + + | [facility] | [address] | [place] [address] | [phone] | + + + + + Phosphorus (08/04/2019 5:35 AM PDT) + + + + + + | Component | Value | Ref Range | Performed | Pathologist | | | | | At | Signature | + + + + + + | Phosphorus | 3.4Comment: Testing | 2.3 - 4.8 mg/dL | [facility] | | | | performed at [facility], [address] | | LABORATORY | | | | [address], | | | | | | [place] [address] | | | | + + + + + + + + | Specimen | + + | Blood | + + + + + + + | Performing | Address | City/State/Zipcode | Phone Number | | Organization | | | | + + + + + | [facility] | [address] | [place] [address] | [phone] | + + + + + CBC [...] 0.01Comment: Testing | 0.00 - 0.10 | [facility] | | | Absolute | performed at [facility], [address] | K/uL | LABORATORY | | | | [address], | | | | | | [place] [address] | | | | + + + + + + + + | Specimen | + + | Blood | + + + + + + + | Performing | Address | City/State/Zipcode | Phone Number | | Organization | | | | + + + + + | [facility] | [address] | [place] [address] | [phone] | + + + + + Comprehensive [...] | | | | READ BACK BY:ONEIDA AMRLEY | mmol/L | LABORATORY | | | | 4RP AT [facility]. 08/04/2019 | | | | | | @ 0648. [facility] | | | | | | | [...] | | | | | performed at [facility], [address] | | | | | | [address], | | | | | | [place] [address] | | | | + + + + + + + + | Specimen | + + | Blood | + + + + + + + | Performing | Address | City/State/Zipcode | Phone Number | | Organization | | | | + + + + + | [facility] | [address] | [place] [address] | [phone] | + + + + + Magnesium (08/04/2019 5:35 AM PDT) + + + + + + | Component | Value | Ref Range | Performed | Pathologist | | | | | At | Signature | + + + + + + | Magnesium | 2.3Comment: Testing | 1.7 - 2.4 mg/dL | [facility] | | | | performed at [facility], [address] | | LABORATORY | | | | [address], | | | | | | [place] [address] | | | | + + + + + + + + | Specimen | + + | Blood | + + + + + + + | Performing | Address | City/State/Zipcode | Phone Number | | Organization | | | | + + + + + | [facility] | [address] | [place] [address] | [phone] | + + + + + POC [...] | | | POC | performed at [facility];[address] | | LABORATORY | | | | [address];[place] | | | | | | [address] | | | | + + + + + + + + | Specimen | + + | | + + + + + + + | Performing | Address | City/State/Zipcode | Phone Number | | Organization | | | | + + + + + | [facility] | [address] | [place] [address] | [phone] | + + + + + POC [...] | | | POC | performed at [facility];[address] | | LABORATORY | | | | [address];[place] | | | | | | [address] | | | | + + + + + + + + | Specimen | + + | | + + + + + + + | Performing | Address | City/State/Zipcode | Phone Number | | Organization | | | | + + + + + | [facility] | [address] | [place] [address] | [phone] | + + + + + POC [...] | | | POC | performed at [facility];[address] | | LABORATORY | | | | [address];[place] | | | | | | [address] | | | | + + + + + + + + | Specimen | + + | | + + + + + + + | Performing | Address | City/State/Zipcode | Phone Number | | Organization | | | | + + + + + | [facility] | [address] | [place] [address] | [phone] | + + + + + POC Glucose (08/03/2019 7:29 AM PDT) + + + + + + | Component | Value | Ref Range | Performed | Pathologist | | | | | At | Signature | + + + + + + | Glucose, | 186 (H)Comment: Testing | 65 - 99 mg/dL | [facility] | | | POC | performed at [facility];[address] | | LABORATORY | | | | [address];[place] | | | | | | [address] | | | | + + + + + + + + | Specimen | + + | | + + + + + + + | Performing | Address | City/State/Zipcode | Phone Number | | Organization | | | | + + + + + | [facility] | [address] | [place] [address] | [phone] | + + + + + Phosphorus (08/03/2019 5:43 AM PDT) + + + + + + | Component | Value | Ref Range | Performed | Pathologist | | | | | At | Signature | + + + + + + | Phosphorus | 2.4Comment: Testing | 2.3 - 4.8 mg/dL | [facility] | | | | performed at [facility], [address] | | LABORATORY | | | | [address], | | | | | | [place] [address] | | | | + + + + + + + + | Specimen | + + | Blood | + + + + + + + | Performing | Address | City/State/Zipcode | Phone Number | | Organization | | | | + + + + + | [facility] | [address] | [place] [address] | [phone] | + + + + + CBC [...] | | | Absolute | performed at [facility], [address] | K/uL | LABORATORY | | | | [address], | | | | | | [place] [address] | | | | + + + + + + + + | Specimen | + + | Blood | + + + + + + + | Performing | Address | City/State/Zipcode | Phone Number | | Organization | | | | + + + + + | [facility] | [address] | [place] [address] | [phone] | + + + + + Comprehensive [...] 47 | 10 - 65 U/L | [facility] [...] | | | | | performed at [facility], [address] | | | | | | [facility], | | | | | | [place] [address] | | | | + + + + + + + + | Specimen | + + | Blood | + + + + + + + | Performing | Address | City/State/Zipcode | Phone Number | | Organization | | | | + + + + + | [facility] | [address] | [place] [address] | [phone] | + + + + + Magnesium (08/03/2019 5:43 AM PDT) + + + + + + | Component | Value | Ref Range | Performed | Pathologist | | | | | At | Signature | + + + + + + | Magnesium | 2.3Comment: Testing | 1.7 - 2.4 mg/dL | [place] | | | | performed at [facility], [address] | | LABORATORY | | | | [address], | | | | | | [place] [address] | | | | + + + + + + + + | Specimen | + + | Blood | + + + + + + + | Performing | Address | City/State/Zipcode | Phone Number | | Organization | | | | + + + + + | [facility] | [address] | [place] [address] | [phone] | + + + + + POC [...] | | | POC | performed at [facility];[address] | | LABORATORY | | | | [address];[place], [place] | | | | | | [address] | | | | + + + + + + + + | Specimen | + + | | + + + + + + + | Performing | Address | City/State/Zipcode | Phone Number | | Organization | | | | + + + + + | [facility] | [address] | [place] [address] | [phone] | + + + + + POC Glucose (08/02/2019 3:58 PM PDT) + + + + + + | Component | Value | Ref Range | Performed | Pathologist | | | | | At | Signature | + + + + + + | Glucose, | 120 (H)Comment: Testing | 65 - 99 mg/dL | [facility] | | | POC | performed at [facility];[address] | | LABORATORY | | | | [address];[place], [place] | | | | | | [address] | | | | + + + + + + + + | Specimen | + + | | + + + + + + + | Performing | Address | City/State/Zipcode | Phone Number | | Organization | | | | + + + + + | [facility] | [address] | [place] [address] | [phone] | + + + + + POC [...] | | | POC | performed at [facility];[address] | | LABORATORY | | | | [address];[place], [place] | | | | | | [address] | | | | + + + + + + + + | Specimen | + + | | + + + + + + + | Performing | Address | City/State/Zipcode | Phone Number | | Organization | | | | + + + + + | [facility] | [address] | [place] [address] | [phone] | + + + + + POC Glucose (08/02/2019 8:26 AM PDT) + + + + + + | Component | Value | Ref Range | Performed | Pathologist | | | | | At | Signature | + + + + + + | Glucose, | 204 (H)Comment: Testing | 65 - 99 mg/dL | [facility] | | | POC | performed at [facility];[address] | | LABORATORY | | | | [address];[place] | | | | | | [address] | | | | + + + + + + + + | Specimen | + + | | + + + + + + + | Performing | Address | City/State/Zipcode | Phone Number | | Organization | | | | + + + + + | [facility] | [address] | [place] [address] | [phone] | + + + + + Phosphorus (08/02/2019 4:24 AM PDT) + + + + + + | Component | Value | Ref Range | Performed | Pathologist | | | | | At | Signature | + + + + + + | Phosphorus | 2.7Comment: Testing | 2.3 - 4.8 mg/dL | [facility] | | | | performed at [facility], [address] | | LABORATORY | | | | [address], | | | | | | [place] [address] | | | | + + + + + + + + | Specimen | + + | Blood | + + + + + + + | Performing | Address | City/State/Zipcode | Phone Number | | Organization | | | | + + + + + | [facility] | [address] | [place] [address] | [phone] | + + + + + CBC [...] | | | Absolute | performed at [facility], [address] | K/uL | LABORATORY | | | | [address], | | | | | | [place] [address] | | | | + + + + + + + + | Specimen | + + | Blood | + + + + + + + | Performing | Address | City/State/Zipcode | Phone Number | | Organization | | | | + + + + + | [facility] | [address] | [place] [address] | [phone] | + + + + + Comprehensive [...] | | | | READ BACK BY:CLARK Moore ON | mmol/L | LABORATORY | | | | 4RP AT [facility]. 08/02/2019 | | | | | | @ 0620. [facility] | | | | | | | [...] 42 | 10 - 65 U/L | [place] | | | | | | LABORATORY | | + + + + + + | Estimated | >60Comment: GFR <60: | >60 | [facility] | | | GFR | CHRONIC KIDNEY [...] | | | | | performed at [facility], [address] | | | | | | [facility], | | | | | | [place] [address] | | | | + + + + + + + + | Specimen | + + | Blood | + + + + + + + | Performing | Address | City/State/Zipcode | Phone Number | | Organization | | | | + + + + + | [facility] | [address] | [place] [address] | [phone] | + + + + + Magnesium (08/02/2019 4:24 AM PDT) + + + + + + | Component | Value | Ref Range | Performed | Pathologist | | | | | At | Signature | + + + + + + | Magnesium | 2.2Comment: Testing | 1.7 - 2.4 mg/dL | [facility] | | | | performed at [facility], [address] | | LABORATORY | | | | [address], | | | | | | [place] [address] | | | | + + + + + + + + | Specimen | + + | Blood | + + + + + + + | Performing | Address | City/State/Zipcode | Phone Number | | Organization | | | | + + + + + | [facility] | [address] | [place] [address] | [phone] | + + + + + POC [...] | | | POC | performed at [facility];[address] | | LABORATORY | | | | [address];[place], [place] | | | | | | [address] | | | | + + + + + + + + | Specimen | + + | | + + + + + + + | Performing | Address | City/State/Zipcode | Phone Number | | Organization | | | | + + + + + | [facility] | [address] | [place] [address] | [phone] | + + + + + POC [...] | | | POC | performed at [facility];[address] | | LABORATORY | | | | [address];[place] | | | | | | [address] | | | | + + + + + + + + | Specimen | + + | | + + + + + + + | Performing | Address | City/State/Zipcode | Phone Number | | Organization | | | | + + + + + | [facility] | [address] | [place] [address] | [phone] | + + + + + POC Glucose (08/01/2019 1:36 PM PDT) + + + + + + | Component | Value | Ref Range | Performed | Pathologist | | | | | At | Signature | + + + + + + | Glucose, | 148 (H)Comment: Testing | 65 - 99 mg/dL | [facility] | | | POC | performed at [facility];[address] | | LABORATORY | | | | [address];[place], [place] | | | | | | [address] | | | | + + + + + + + + | Specimen | + + | | + + + + + + + | Performing | Address | City/State/Zipcode | Phone Number | | Organization | | | | + + + + + | [facility] | [address] | [place] [address] | [phone] | + + + + + Phosphorus (08/01/2019 11:52 AM PDT) + + + + + + | Component | Value | Ref Range | Performed | Pathologist | | | | | At | Signature | + + + + + + | Phosphorus | 1.1 (L)Comment: Testing | 2.3 - 4.8 mg/dL | [facility] | | | | performed at [facility];[address] | | LABORATORY | | | | [address];[place], [place] | | | | | | [address] | | | | + + + + + + + + | Specimen | + + | Blood | + + + + + + + | Performing | Address | City/State/Zipcode | Phone Number | | Organization | | | | + + + + + | [facility] | [address] | [place] [address] | [phone] | + + + + + Magnesium (08/01/2019 11:52 AM PDT) + + + + + + | Component | Value | Ref Range | Performed | Pathologist | | | | | At | Signature | + + + + + + | Magnesium | 1.6 (L)Comment: Testing | 1.7 - 2.4 mg/dL | [facility] | | | | performed at [facility];[address] | | LABORATORY | | | | [address];[place], [place] | | | | | | [address] | | | | + + + + + + + + | Specimen | + + | Blood | + + + + + + + | Performing | Address | City/State/Zipcode | Phone Number | | Organization | | | | + + + + + | [facility] | [address] | [place] [address] | [phone] | + + + + + Basic [...] | | | | | performed at [facility] | | | | | | [address] [facility];[place], [place] | | | | | | [address] | | | | + + + + + + + + | Specimen | + + | Blood | + + + + + + + | Performing | Address | City/State/Zipcode | Phone Number | | Organization | | | | + + + + + | [facility] | [address] | [place] [address] | [phone] | + + + + + POC Glucose (08/01/2019 11:13 AM PDT) + + + + + + | Component | Value | Ref Range | Performed | Pathologist | | | | | At | Signature | + + + + + + | Glucose, | 140 (H)Comment: Testing | 65 - 99 mg/dL | [facility] | | | POC | performed at [facility];[address] | | LABORATORY | | | | [address];[place], [place] | | | | | | [address] | | | | + + + + + + + + | Specimen | + + | | + + + + + + + | Performing | Address | City/State/Zipcode | Phone Number | | Organization | | | | + + + + + | [facility] | [address] | [place] [address] | [phone] | + + + + + POC [...] | | | POC | performed at [facility];[address] | | LABORATORY | | | | [address];[place], [place] | | | | | | [address] | | | | + + + + + + + + | Specimen | + + | | + + + + + + + | Performing | Address | City/State/Zipcode | Phone Number | | Organization | | | | + + + + + | [facility] | [address] | [place] [address] | [phone] | + + + + + POC Glucose (08/01/2019 8:54 AM PDT) + + + + + + | Component | Value | Ref Range | Performed | Pathologist | | | | | At | Signature | + + + + + + | Glucose, | 161 (H)Comment: Testing | 65 - 99 mg/dL | [facility] | | | POC | performed at [facility];[address] | | LABORATORY | | | | [address];[place] | | | | | | [address] | | | | + + + + + + + + | Specimen | + + | | + + + + + + + | Performing | Address | City/State/Zipcode | Phone Number | | Organization | | | | + + + + + | [facility] | [address] | [place] [address] | [phone] | + + + + + Hemoglobin A1C (08/01/2019 7:46 AM PDT) + + + + + + | Component | Value | Ref Range | Performed | Pathologist | | | | | At | Signature | + + + + + + | Hemoglobin | 17.0 (H)Comment: HbA1c | 4.0 - 6.0 % | [facility] | | | A1c | method is [...] | 441 (H)Comment: | <154 mg/dL | [facility] | | | Average | Estimated Average | | LABORATORY | | | Glucose | Glucose calculated from | | | | | | hemoglobin A1c by use of | | | | | | the ADArecommended | | | | | | formula.Testing | | | | | | performed at [facility], [address] | | | | | | [address], | | | | | | [place] [address] | | | | + + + + + + + + | Specimen | + + | Blood | + + + + + + + | Performing | Address | City/State/Zipcode | Phone Number | | Organization | | | | + + + + + | [facility] | [address] | [place] [address] | [phone] | + + + + + Phosphorus (08/01/2019 7:46 AM PDT) + + + + + + | Component | Value | Ref Range | Performed | Pathologist | | | | | At | Signature | + + + + + + | Phosphorus | 1.2 (L)Comment: Testing | 2.3 - 4.8 mg/dL | [facility] | | | | performed at [facility];[address] | | LABORATORY | | | | [address];[place] | | | | | | [address] | | | | + + + + + + + + | Specimen | + + | Blood | + + + + + + + | Performing | Address | City/State/Zipcode | Phone Number | | Organization | | | | + + + + + | [facility] | [address] | [place] [address] | [phone] | + + + + + Magnesium (08/01/2019 7:46 AM PDT) + + + + + + | Component | Value | Ref Range | Performed | Pathologist | | | | | At | Signature | + + + + + + | Magnesium | 1.7Comment: Testing | 1.7 - 2.4 mg/dL | [facility] | | | | performed at [facility];[address] | | LABORATORY | | | | [address];[place], [place] | | | | | | [address] | | | | + + + + + + + + | Specimen | + + | Blood | + + + + + + + | Performing | Address | City/State/Zipcode | Phone Number | | Organization | | | | + + + + + | [facility] | [address] | [place] [address] | [phone] | + + + + + Basic [...] | >60Comment: GFR <60: | >60 | [facility] | | | GFR | CHRONIC KIDNEY [...] | | | | | | [facility]D [facility] traceable | | | | | | equation.Testing | | | | | | performed at [facility] | | | | | | [facility];[place], [place] | | | | | | [address] | | | | + + + + + + + + | Specimen | + + | Blood | + + + + + + + | Performing | Address | City/State/Zipcode | Phone Number | | Organization | | | | + + + + + | [facility] | [address] | [place] [address] | [phone] | + + + + + POC Glucose (08/01/2019 7:40 AM PDT) + + + + + + | Component | Value | Ref Range | Performed | Pathologist | | | | | At | Signature | + + + + + + | Glucose, | 208 (H)Comment: Testing | 65 - 99 mg/dL | [facility] | | | POC | performed at [facility];[address] | | LABORATORY | | | | [address];[place] | | | | | | [address] | | | | + + + + + + + + | Specimen | + + | | + + + + + + + | Performing | Address | City/State/Zipcode | Phone Number | | Organization | | | | + + + + + | [facility] | [address] | [place] [address] | [phone] | + + + + + POC Glucose (08/01/2019 6:20 AM PDT) + + + + + + | Component | Value | Ref Range | Performed | Pathologist | | | | | At | Signature | + + + + + + | Glucose, | 188 (H)Comment: Testing | 65 - 99 mg/dL | [facility] | | | POC | performed at [facility];[address] | | LABORATORY | | | | [address];[place], [place] | | | | | | [address] | | | | + + + + + + + + | Specimen | + + | | + + + + + + + | Performing | Address | City/State/Zipcode | Phone Number | | Organization | | | | + + + + + | [facility] | [address] | [place] [address] | [phone] | + + + + + Urinalysis [...] - 1.030 | [facility] | | | [place], | | | LABORATORY | | | [...] | | | Urine | performed at [facility];[address] | | LABORATORY | | | | [address];[place] | | | | | | [address] | | | | + + + + + + + + | Specimen | + + | Urine - Urine | | specimen (specimen) | + + + + + + + | Performing | Address | City/State/Zipcode | Phone Number | | Organization | | | | + + + + + | [facility] | [address] | [place] [address] | [phone] | + + + + + POC [...] | | | POC | performed at [facility];[address] | | LABORATORY | | | | [address];[place] | | | | | | [address] | | | | + + + + + + + + | Specimen | + + | | + + + + + + + | Performing | Address | City/State/Zipcode | Phone Number | | Organization | | | | + + + + + | [facility] | [address] | [place] [address] | [phone] | + + + + + Phosphorus (08/01/2019 4:23 AM PDT) + + + + + + | Component | Value | Ref Range | Performed | Pathologist | | | | | At | Signature | + + + + + + | Phosphorus | 1.0 (L)Comment: Testing | 2.3 - 4.8 mg/dL | [facility] | | | | performed at [facility];[address] | | LABORATORY | | | | [address];[place] | | | | | | [address] | | | | + + + + + + + + | Specimen | + + | Blood | + + + + + + + | Performing | Address | City/State/Zipcode | Phone Number | | Organization | | | | + + + + + | [facility] | [address] | [place] [address] | [phone] | + + + + + Magnesium (08/01/2019 4:23 AM PDT) + + + + + + | Component | Value | Ref Range | Performed | Pathologist | | | | | At | Signature | + + + + + + | Magnesium | 1.6 (L)Comment: Testing | 1.7 - 2.4 mg/dL | [facility] | | | | performed at [facility];[address] | | LABORATORY | | | | [address];[place] | | | | | | [id number] | | | | + + + + + + + + | Specimen | + + | Blood | + + + + + + + | Performing | Address | City/State/Zipcode | Phone Number | | Organization | | | | + + + + + | [facility] | [address] | [place] [address] | [phone] | + + + + + Basic [...] | | | | | performed at [facility];[address] | | | | | | [address];[place], [place] | | | | | | [address] | | | | + + + + + + + + | Specimen | + + | Blood | + + + + + + + | Performing | Address | City/State/Zipcode | Phone Number | | Organization | | | | + + + + + | [facility] | [address] | [place] [address] | [phone] | + + + + + CBC [...] | | | Absolute | performed at [facility], [address] | LABORATORY | | | | [address], | | | | | | [place] [address] | | | | + + + + + + + + | Specimen | + + | Blood | + + + + + + + | Performing | Address | City/State/Zipcode | Phone Number | | Organization | | | | + + + + + | [facility] | [address] | [place] [address] | [phone] | + + + + + POC Glucose (08/01/2019 4:21 AM PDT) + + + + + + | Component | Value | Ref Range | Performed | Pathologist | | | | | At | Signature | + + + + + + | Glucose, | 260 (H)Comment: Testing | 65 - 99 mg/dL | [facility] | | | POC | performed at [facility];[address] | | LABORATORY | | | | [address];[place] | | | | | | [address] | | | | + + + + + + + + | Specimen | + + | | + + + + + + + | Performing | Address | City/State/Zipcode | Phone Number | | Organization | | | | + + + + + | [facility] | [address] | [place] [address] | [phone] | + + + + + POC [...] | | | POC | performed at [facility];[address] | | LABORATORY | | | | [address];[place], [place] | | | | | | [address] | | | | + + + + + + + + | Specimen | + + | | + + + + + + + | Performing | Address | City/State/Zipcode | Phone Number | | Organization | | | | + + + + + | [facility] | [address] | [place] [address] | [phone] | + + + + + POC Glucose (08/01/2019 2:02 AM PDT) + + + + + + | Component | Value | Ref Range | Performed | Pathologist | | | | | At | Signature | + + + + + + | Glucose, | 264 (H)Comment: Testing | 65 - 99 mg/dL | [facility] | | | POC | performed at [facility];[address] | | LABORATORY | | | | [address];[place] | | | | | | [address] | | | | + + + + + + + + | Specimen | + + | | + + + + + + + | Performing | Address | City/State/Zipcode | Phone Number | | Organization | | | | + + + + + | [facility] | [address] | [place] [address] | [phone] | + + + + + POC Glucose (08/01/2019 1:23 AM PDT) + + + + + + | Component | Value | Ref Range | Performed | Pathologist | | | | | At | Signature | + + + + + + | Glucose, | 228 (H)Comment: Testing | 65 - 99 mg/dL | [facility] | | | POC | performed at [facility];[address] | | LABORATORY | | | | [address];[place] | | | | | | [address] | | | | + + + + + + + + | Specimen | + + | | + + + + + + + | Performing | Address | City/State/Zipcode | Phone Number | | Organization | | | | + + + + + | [facility] | [address] | [place] [address] | [phone] | + + + + + POC [...] | | | POC | performed at [facility];[address] | | LABORATORY | | | | [address];[place] | | | | | | [address] | | | | + + + + + + + + | Specimen | + + | | + + + + + + + | Performing | Address | City/State/Zipcode | Phone Number | | Organization | | | | + + + + + | [facility] | [address] | [place] [address] | [phone] | + + + + + POC [...] | | | POC | performed at [facility];[address] | | LABORATORY | | | | [address];[place], [place] | | | | | | [address] | | | | + + + + + + + + | Specimen | + + | | + + + + + + + | Performing | Address | City/State/Zipcode | Phone Number | | Organization | | | | + + + + + | [facility] | [address] [facility] | [place] [address] | [phone] | + + + + + CT [...] | | pelvic mass. Signed by: Trinh Melendez Julie Sign | | | Date/Time: 07/31/2019 10:35 [...] 72.0 | 60 - 85 % | [facility] | | | [id number] | | | LABORATORY | | | .(%) | | | | | + + + + + + | FiO2, POC | 21Comment: Testing | % | [facility] | | | | performed at 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;[address] | | | | | | [address];[place] [address] | | | | + + + + + + + + | Specimen | + + | | + + + + + + + | Performing | Address | City/State/Zipcode | Phone Number | | Organization | | | | + + + + + | [facility] | [address] | [place] [address] | [phone] | + + + + + Troponin I (07/31/2019 8:41 PM PDT) + + + + + + | Component | Value | Ref Range | Performed | Pathologist | | | | | At | Signature | + + + + + + | Troponin I | <0.006Comment: 0.04 | 0.00 - 0.04 | [facility] | | | | ng/mL or less [...] at | | | | | | [facility];[address] [facility] | | | | | | [address];[place] [address] | | | | + + + + + + + + | Specimen | + + | | + + + + + + + | Performing | Address | City/State/Zipcode | Phone Number | | Organization | | | | + + + + + | [facility] | [address] | [place] [address] | [phone] | + + + + + Lipase (07/31/2019 8:41 PM PDT) + + + + + + | Component | Value | Ref Range | Performed | Pathologist | | | | | At | Signature | + + + + + + | Lipase | 41Comment: Testing | 12 - 53 U/L | [facility] | | | | performed at [facility];[address] | | LABORATORY | | | | [address];[place] | | | | | | [address] | | | | + + + + + + + + | Specimen | + + | Blood | + + + + + + + | Performing | Address | City/State/Zipcode | Phone Number | | Organization | | | | + + + + + | [facility] | [address] | [place] [address] | [phone] | + + + + + Comprehensive [...] LABORATORY | | | | RESULTS VERIFIEDDR RAMÍREZ | | | | | | IN ED AT [facility] | | | | | |DR RAMÍREZ IN ED AT [facility] | | [...] | >60Comment: GFR <60: | >60 | [facility] | | | GFR | CHRONIC KIDNEY [...] | | | | | | MDRD [facility] traceable | | | | | | equation.Testing | | | | | | performed at [facility];[address] | | | | | | [facility];[place], [place] | | | | | | [address] | | | | + + + + + + + + | Specimen | + + | Blood | + + + + + + + | Performing | Address | City/State/Zipcode | Phone Number | | Organization | | | | + + + + + | [facility] | [address] | [place] [address] | [phone] | + + + + + CBC [...] | | | Absolute | performed at [facility];[address] | [address] | LABORATORY | | | | [facility];[place], [place] | | | | | | [address] | | | | + + + + + + + + | Specimen | + + | Blood | + + + + + + + | Performing | Address | City/State/Zipcode | Phone Number | | Organization | | | | + + + + + | [facility] | [address] | [place] [address] | [phone] | + + + + + documented in this encounter Visit Diagnoses + + | Diagnosis | + + | Left upper quadrant pain Abdominal pain, left upper quadrant | + + | Nausea and vomiting in adult Nausea with vomiting | + + documented in this encounter Admitting Diagnoses + + | Diagnosis | + + | Nausea and vomiting in adult Nausea with vomiting | + + documented in this encounter Administered Medications + +--------+ +-------+------+------+ | Medication Order | MAR | Action | Dose | Rate | Site | | | Action | Date | | | | + +--------+ +-------+------+------+ | atorvaSTATin (LIPITOR) tablet | Given | 08/06/19 | 20 mg | | | | 20 mg 20 mg, Oral, NIGHTLY, | | 20 7:38 | | | | | First dose on 08/01/19 at 0015 | | PM PDT | | | | + +--------+ +-------+------+------+ +-------+ +-------+---+---+ | Given | 08/05/19 | [...] | | | + +---+ + +-------+ +-------+---+ + | enoxaparin (LOVENOX) [...] | | | | | | | [id number] Use NIGHT DOSE for | | | | | | | doses scheduled: HS, | | | | | | | Nighttime 5367-9600 If the BG is | | | [...] | | | | +-------+ +---------+---+ + + +---+ | | | + +---+ [...] | + +---+ + +-------+ +-------+---+---+ | lisinopril (PRINIVIL, ZESTRIL) | Given | 08/07/19 | 40 mg | | | | tablet 40 mg 40 mg, Oral, DAILY, | | 20 8:19 | | | | | First dose (after last | | AM PDT | | | | | modification) on 08/07/19 at | | | | | | [...] PDT | | | | | Starting 08/03/19 at 0749, | | | | | [...] PRN, Per Protocol, | | | Starting Tu08/03/19 at 0749, | | | NON-ICU Protocol [...] | | | | | protocol, Starting Tu08/03/19 at | | | | | | [...]
[2019-10-13] MEDS ORDERED: GLUCOPHAGE500 MG PO (14:12)
[2019-10-13] MEDS ORDERED: HUMALOG KW200 UNIT/1 SUB-Q (14:12)
[2019-10-13] MEDS ORDERED: LANTUS SOL100 UNIT/1 SUB-Q (14:13)
--- NOTE | 2019-10-13 17:35 | NUR ---
47 YEAR OLD MALE PATIENT ADMITTED TO CCU ROOM [address] MONROE WITH DX OF DKA. PATIENT IS [place]OH[place] SPEAKING. PATIENT HAS BEEN ILL FOR APPROX 5 DAY WITH VOMITING, HICCUPS. INTERMITTENT ADB PAIN. HAS BEEN DIABETIC FOR APPROX 15 YEARS. UPON ADMIT PATIENT IS ALERT. ABLE TO FOLLOW COMMANDS. HAS MILD MID ABD PAIN. INSULIN GTT AT 2 UNITS HR. LR BOLUS FOR ER INFUSING. WILL HANG ANOTHER LR BOLUS. KCL RIDER INFUSING. PO KCL MIXED IN APPROX 6 OZ WATER. ADMISSION PROCESS STARTED.
--- NOTE | 2019-10-13 18:10 | NUR ---
ACCUCHECK-341. DR. MONROE HERE AND AWARE. ORDERS RECIEVED TO INCREASE INSULIN GTT TO 3 UNIT HR. THIS DONE.
--- NOTE | 2019-10-13 18:40 | NUR ---
LAB CALLED TO NOTIFY OF CRITICAL CO2 AT 9, NOTIFIED PTS PRIMARY RN
--- NOTE | 2019-10-13 19:00 | NUR ---
DR. MONROE AWARE OF LABS. ORDERS RECIEVED TO KEEP INSULIN GGT AT 3 UNITS HR. REPEAT LR BOLUS HUNG. VOIDED TO URINAL 575 ML OF CLEAR YELLOW URINE, CONTINUES WITH HICCUPS. K RIDER CONTINE TO INFUSE. PO KCL 40 MEQ REPEATED. REPORT TO NEXT SHIFT.
--- NOTE | 2019-10-13 20:15 | NUR ---
STATES IS NAUSEATED, GIVEN 4MG ZOFRAN IV. AFFIRMS DOES HAVE LUQ PAIN, MILD THAT DOES NOT INCREASE WITH PALP. DOES HAVE HICCUPS. CONT ON INSULIN AT 3U /HR BS 305.
--- NOTE | 2019-10-13 21:15 | NUR ---
STATES NAUSEA IS A LITTLE BETTER. SLEEPS MUCH OF TIME. LAB DRAWN. BS 272. GIVEN 15UNITS LANTUS SUB Q. VOIDING WELL.
--- NOTE | 2019-10-13 21:56 | NUR ---
DR MONROE AWARE OF LABS. WILL FOLLOW INSULIN GTT PROTOCOL WITH 2200 BS.
--- NOTE | 2019-10-14 00:31 | NUR ---
RESTING WELL BETWEEN BS CHECKS. TAKING WATER WELL.
--- NOTE | 2019-10-14 01:12 | NUR ---
BS 191, INSULIN GTT CHANGED TO 2.8UNITS/HR AND D5 1/2NS HUNG AT 125ML/HR.
--- NOTE | 2019-10-14 04:16 | NUR ---
BLOOD SUGAR 232, INSULIN GTT CHANGED TO 5.1 UNITS/HR PER PROTOCOL. PT STATES SL NAUSEATED BUT FEELS IS DUE TO BEING HUNGRY. GIVEN SUGAR FREE JELLO. SO FAR CARRIE WELL.
--- NOTE | 2019-10-14 05:03 | NUR ---
CARRIE COLLINS. BS 196, INSULIN GTT TO 4.2 UNITS/HR.
--- NOTE | 2019-10-14 07:07 | NUR ---
DR MONROE CALLED LABS. ORDERS RECEIVED.
--- NOTE | 2019-10-14 08:04 | NUR ---
PT IS DROWSY, HOWEVER WAKES EASILY. PT FOLLOWS DIRECTIONS EASILY. ALL VITALS ARE WNL AT THIS TIME. PT HAS HICCUPS, GIVEN 4 MG IV ZOFRAN FOR PREVENTION.
--- NOTE | 2019-10-14 08:15 | NUR ---
iv sites are intact, no redness or swelling noted, pt denies pain at either site.
--- NOTE | 2019-10-14 09:21 | NUR ---
PT UP AND AMBULATED TO THE BATHROOM WITH ONLY STAND BY ASSIST. GIVEN PERSONAL HYGIENE SUPPLIES, PT ABLE TO DO OWN ORAL CARE AND SKIN CARE. PT CHANGED INTO A CLEAN GOWN. ALL LINENS ON BED CANGED BY RN, DUE TO PT INCONTINENCE OF URINE. PT THEN BACK TO BED.
--- NOTE | 2019-10-14 09:25 | NUR ---
PT GIVEN 650 MG PO TYLENOL PER OBSERVED /10 GENERALIZED DISCOMFORT.
--- NOTE | 2019-10-14 10:30 | NUR ---
INSULIN DRIP AND D5 1/2 NS STOPPED AT THIS TIME PER . PT IS SLEEPING IN BED AT THIS TIME. IV SITES ARE INTACT, NO REDNESS OR SWELLING NOTED, FLUIDS AND FLUSHES INFUSE EASILY.
--- NOTE | 2019-10-14 11:30 | NUR ---
THIS RN TOOK OVER PATIENT CARE FOR THIS PATIENT AT 1130. PATIENT RESTING IN BED. LUNCH ORDERED. BS CHECKED AT 11AM. PATIENT DENIES ANY OTHER NEEDS AT THIS TIME. WILL CONTINUE TO CLOSELY MONITOR.
--- NOTE | 2019-10-14 12:45 | NUR ---
PATIENT RESTING I NBED AND SNACKING ON HIS LUNCH. GAVE SLIDING SCALE INSULIN AND SCHEDULED MEAL INSULIN. PATIENT DENIES ANY OTHER NEEDS AT THIS TIME. PATIENT RESTING IN BED. KPHOS IS STILL INFUSING AT THIS TIME. WILL CONTINUE TO CLOSELY MONITOR.
--- NOTE | 2019-10-14 14:53 | NUR ---
REPORT GIVEN TO DALE MONTGOMERY. AT THSI TIME DALE WILL RESUME CARE OF PATIENT. PATIENT RESTING IN BED. KPHOS IS FINISHED AND BOTH IVS ARE SALINE LOCKED. PATIENT DENIES ANY OTHER NEEDS WILL CONTINUE TO CLOSELY MONITOR.
[2019-10-14] MEDS ORDERED: TERBINAFINE HC250 MG PO (15:00)
--- NOTE | 2019-10-14 15:59 | NUR ---
MED REC COMPLETE
--- NOTE | 2019-10-14 17:30 | NUR ---
PT NOT ABLE TO EAT MORE THAN 10% OF HIS DINNER, MEAL INSULIN HELD, ONLY CORRECTIONAL INSULIN GIVEN. PT DENIES PAIN AND SOB. ALL VITALS ARE WNL AT THIS TIME. IV SITES ARE INTACT, NO REDNESS OR SWELLING NOTED, BOTH FLUSH EASILY. PT REPORTS SOME MILD NAUSEA, 4 MG IV ZOFRAN GIVEN. PT VOIDS LARGE AMOUNTS OF CLEAR YELLOW URINE INTO URINAL.
--- NOTE | 2019-10-14 18:31 | NUR ---
FOR MOST OF THE SHIFT PT IN BED RESTING. PT VITALS ARE WNL. PT APPEARS TO NOT FEEL WELL ALL DAY. PT HAS ONLY AMBULATED TO THE BATHROOM ONE TIME TO BRUSH TEETH AND CLEAN UP. PT PO INTAKE OF FLUID IS GOOD, VOIDS GREATER THEN QS INTO URINAL. PT SLEEPING OFF AND ON MOST OF THE DAY. DR.PITEO HAYNES AN INTEGRATION SOFTWARE DEVELOPER TO DISUCUSS PLAN OF CARE WITH PT. PT HAS TALKED ON THE PHONE WITH FAMILY. PT HAS POOR APPITITE ALL DAY.
--- NOTE | 2019-10-14 19:48 | NUR ---
RECEIVED REPORT ON PT, HE IS RESTING WITH EYES CLOSED, RR IS EVEN AND NONLABORED. CALL LIGHT IS CLOSE.
--- NOTE | 2019-10-14 20:40 | NUR ---
ADMINISTERED EVENING INSULIN FOR BS OF 221. HE DENIES PAIN AND SOB. TEMP IS 99.5, ADMINISTERED TYLENOL FOR COMFORT SEE EMAR. FRESH WATER AT BEDSIDE AND URINAL EMPTIED. PT DENIES FURTHER NEEDS A THIS TIME. CALL LIGHT IS CLOSE.
--- NOTE | 2019-10-14 22:08 | NUR ---
PT IS AWAKE IN BED, RECHECKED TEMP HIS IS 99.2 ALL VS ARE STABLE. HE DENIES NEEDS AT THIS TIME. CALL LIGHT IS CLOSE.
--- NOTE | 2019-10-15 00:28 | NUR ---
EMPTIED URINAL & PT HAS FRESH ICEWATER. TEMP IS 98.8 AND PT DENIES SOB AND PAIN. HE HAS THE HICCUPS BUT DENIES WANTING TO TRY PHENERGAN TO SEE IF IT HELPS. HE DENIES NEEDS AT THIS TIME. CALL LIGHT IS CLOSE. SEE ASSESSMENT.
--- NOTE | 2019-10-15 01:35 | NUR ---
PT IS RESTING WITH EYES CLOSED, RR IS EVEN AND NONLABORED. CALL LIGHT IS CLOSE.
--- NOTE | 2019-10-15 03:02 | NUR ---
PT IS RESTING WITH EYES CLOSED, RR IS EVEN AND NONLABORED. CALL LIGHT IS CLOSE.
--- NOTE | 2019-10-15 04:40 | NUR ---
CHECKED ON PT, HE WAS HOLDING THE EMESIS BAG. WHEN ASKED HE SAID HE WAS NAUSEOUS AND WOULD LIKE TO TAKE ZOFRAN. ADMINISTERED ZOFRAN AND TYLENOL. PT DENIES PAIN BUT TEMP WAS AT 100.2. HE HAS FRESH WATER AT BEDSIDE AND URINAL WAS EMPTIED. PT DENIES FURTHER NEEDS AT THIS TIME. CALL LIGHT IS WITHIN REACH.
--- NOTE | 2019-10-15 06:15 | NUR ---
IN ROOM TO CHECK ON PT. HE DENIES NEEDS AT THIS TIME. TEMP IS 98.2. EMPTIED URINAL. CALL LIGHT IS CLOSE.
--- NOTE | 2019-10-15 06:28 | NUR ---
CALLED CRITICAL LAB FOR k+ OF 2.4. ALSO NOTIFIED HER OF LOW MAG AND PHOS. NO NEW ORDERS RECEIVED.
--- NOTE | 2019-10-15 06:30 | NUR ---
PT DID NOT SLEEP MUCH THROUGH THE NIGHT. HE IS VOIDING QS URINE WHICH IS CLOUDY. THE HIGHEST HIS TEMP GOT WAS 100.2 BUT EASILY CAME DOWN WITH TYLENOL. HE IS ON A 60G CARB DIET WITH ACCUCHECKS BS LAST NIGHT WAS 221. HE USES URINAL IN BED. VS STABLE WITH BP A LITTLE ELEVATED AT TIMES. CRITICAL LAB THIS AM WAS K+ AT 2.4.
--- NOTE | 2019-10-15 07:50 | NUR ---
PT APPEARS TO HAVE LESS ENERGY TODAY, MOSTLY NOT OPENING EYES. PT DENIES PAIN AND SOB. ADMITS TO NAUSEA. PT IS COOPERATIVE AND POLITE. PT ABLE TO USE BEDSIDE URINAL.
--- NOTE | 2019-10-15 08:10 | NUR ---
PT HAS APPROXIMATLY 50 ML GREEN EMISIS. 12.5 MG IV PHENERGREN GIVEN. IV SITES ARE INTACT, NO REDNESS OR SWELLING NOTED, BOTH SITES FLUSH EASILY. PT DENIES PAIN AND SOB. ALL VITALS ARE WNL AT THIS TIME.
--- NOTE | 2019-10-15 08:55 | NUR ---
PT NOT ABLE TO CARRIE ANY BREAKFAST, ZERO SUGAR GATORAID GIVEN TO PT INSTEAD. PT APPEARS INTERESTED IN THAT.
--- NOTE | 2019-10-15 09:15 | NUR ---
PATIENT ASLEEP. SPOKE WITH STAFF. THEY STATE PATIENT IS NORMALLY INDEPENDENT AND THEY ARE NOT AWARE OF ANY NEEDS AT DISCHARGE. THEY STATE HE LIVES WITH .
--- NOTE | 2019-10-15 12:11 | NUR ---
PT MOSTLY DRWOSY, IV SITES ARE INTACT, NO REDNESS OR SWELLING NOTED, BOTH SITES FLUSH EASILY. PT DENIES PAIN, NAUSEA, AND SOB IN GENERAL. VITALS ARE WNL. PT DENIES ANYTHING FOR LUNCH.
--- NOTE | 2019-10-15 13:30 | NUR ---
PT GIVEN FULL BED BATH. ALL LINENS CHANGED, CLEAN ATTENDS PLACED, CLEAN GOWN PLACED. PT CARRIE WELL, ABLE TO ASSIST WITH TURNING FROM SIDE TO SIDE. PT ABLE TO WASH OWN GROIN AREA. CLEAN SOCKS PLACED.
--- NOTE | 2019-10-15 15:05 | NUR ---
PT ABLE TO FINISH THE FIRST DOSE OF GASTROGRAFIN, HE STARTED DRINKING IT AT 1355.
--- NOTE | 2019-10-15 15:30 | NUR ---
PT NOTED TO HAVE 200 ML EMISIS, APPEARS TO BE MOSTLY THE JUICE THAT WAS MIXED WITH GASTROGRAFIN.
--- NOTE | 2019-10-15 15:35 | NUR ---
PT ATTEMPTING TO GET INTO THE BATHROOM ON HIS OWN, ASSISTED WITH CORDS AND IV POLE. PT INCONTINENT OF SOME STOOL IN BED. PT PROVIDED WITH CLEAN ATTENDS AND WIPES TO CLEAN UP IN THE BATHROOM. ALL LINENS CHANGED ON THE BED.
--- NOTE | 2019-10-15 15:45 | NUR ---
PATIENT UP IN BATHROOM. WILL HAVE TO CHECK BACK LATER.
--- NOTE | 2019-10-15 16:28 | NUR ---
AT APPROXIMATLY 1600 GAVE IV PHENERGAN 12.5 MG PER IV SITE IN LEFT ARM, SITE FLUSHED WELL PRIOR TO ADMINISTRATION, PUSHED MED SLOW OVER 2.5 MINUTES, FOLLOWED BY SLOW FLUSH. NOTED THAT RED SLIGHTLY RAISED AREA DEVELOPED WITHIN A FEW MINUTES OF ADMINISTRATION. CALLED ADDITIONAL RN INTO THE ROOM TO ASSESS, CALLED GROUP EXERCISE MANAGER TO COME ASSESS. IV SITE DC'D, TIP OF CATH INTACT. GROUP EXERCISE MANAGER ASSESSED SITE WELL AND HAS CALLED PHARMACY. RED AREA OUITLINED WITH SKIN MARKER, AND ICE APPLIED PER POLICY, WILL CONTINUE TO MONITOR. IS AWARE.
--- NOTE | 2019-10-15 16:56 | NUR ---
PT JUST LEFT CCU TO GO TO CT SCAN VIA WHEELCHAIR.
--- NOTE | 2019-10-15 17:04 | NUR ---
PT BACK TO ROOM FROM CT
--- NOTE | 2019-10-15 18:09 | NUR ---
reassesed induration site on left arm suspected of possible phenergan infiltrate, all redness receded, no swelling noted, pt denies pain at site, pt removed ice pack.
--- NOTE | 2019-10-15 19:45 | NUR ---
PATIENT RESTING IN BED. REQUEST MORE ICE WATER, WHICH WAS PROVIDED. PATIENT DENIED ANY OTHER NEEDS. CALL LIGHT IN REACH.
--- NOTE | 2019-10-15 20:45 | NUR ---
PATIENT RESTING IN BED. APPEARS FLUSHED. ORAL TEMP 100.5 F. PATIENT DENIES FEELING FEVERISH. DOES HAVE SOME NAUSEA, PRN ZOFRAN PROVIDED. NO ABD PAIN. VS STABLE. URNAL EMPTIED, URINE IS YELLOW AND CLEAR. PATIENT DRINKING LOTS OF WATER. CLEAR ENSURE PROVIDED. PATIENT DENIES ANY NEEDS AT THIS TIME.
--- NOTE | 2019-10-15 23:05 | NUR ---
PATIENT UP TO THE BATHROOM INDEPENDENTLY. PATIENT HAD LARGE LIQUID STOOL. REQUIRED NEW ATTENDS, WHICH WERE PROVIDED. PATIENT ABLE TO CLEAN HIMSELF WITH WET WIPES. PATIENT DENIES FEEL NAUSEA OR STOMACH UPSET. PATIENT APPEARS DIAPHORETIC AND FLUSHED. COOL WASH CLOTH PROVIDED. ORAL TEMP 98.0 F. FRESH ICE WATER PROVIDED. PATIENT DENIES ANY NEEDS. ENCOURAGED PATIENT TO COMMUNICATE CONCERNS TO STAFF, HE AGREES THAT HE WILL. CALL LIGHT IN REACH.
--- NOTE | 2019-10-16 01:41 | NUR ---
PATIENT APPEARS TO BE SLEEPING SOUNDLY. VS STABLE. HR 70'S. R 20, EVEN AND NONLABORED. ALLOWED PATIENT TO REST. CALL LIGHT IN REACH.
--- NOTE | 2019-10-16 04:12 | NUR ---
PATIENT REQUESTING MORE ICE WATER WHICH WAS PROVIDED TO HIM. URNAL EMPTIED. URINE IS STRAW COLORED AND CLEAR. GOOD OUTPUT. PATIENT DENIES ANY GI UPSET. ORAL TEMP 99.0 F. VS STABLE. PATIENT DENIES ANY NEEDS.
--- NOTE | 2019-10-16 06:33 | NUR ---
PATIENT RESTING IN BED. FRESH ICE WATER PROVIDED. PATIENT DENIES NEED AT THIS TIME.
--- NOTE | 2019-10-16 13:58 | NUR ---
pt only able to jaja a few bites of jello for lunch. pt is able to jaja po water. pt did have approximatly 200 ml emisis after eating jello. pt appears flat and somulant. pt denies pain and sob at this time. given 12.5 mg iv phenergan. pt also given a gingerale. assisted pt to clean himself up.
--- NOTE | 2019-10-16 16:50 | NUR ---
IV SITE IS INTACT, NO REDNESS OR SWELLING NOTED, FLUSHES AND FLUIDS INFUSE EASILY. PT GIVEN 650 MG PO TYLENOL FOR 4/10 GENERALIZED PAIN ASSESSED BY FACE SCALE. PT ALSO GIVEN 4 MG IV ZOFRAN FOR ONGOING NAUSEA. PT VITALS ARE WNL AT THIS TIME. PT REMAINS SOMULANT/FLAT, WILL ANSWER YES AND NO QUESTIONS. PT HAS GOOD PO INTAKE OF WATER, AND VOIDS LARGE AMOUNTS INTO URINAL FROM THE BED. PT NOT ABLE TO CARRIE MORE THAN A BITE OR TWO OF JELLO ALL DAY.
--- NOTE | 2019-10-16 17:15 | NUR ---
PT GIVEN PARTIAL BED BATH. ALL LINENS CHANGED, CLEAN GOWN PLACED, PT INDEPENDENT WITH CLEANING FRONT OF BODY, RN WASHED BACK OF BODY. PT ABLE TO ASSIST BY ROLLING FROM SIDE TO SIDE IN BED FOR LINEN CHANGE.
--- NOTE | 2019-10-16 18:15 | NUR ---
PT TRANSFERED TO ROOM 119 ON MED-SURG VIA BED. ALL PERSONAL BELONGINGS WENT WITH PT. NO KITS MEDS TO TRANSFER. CHART WENT WITH PT. FULL REPORT GIVEN TO [facility] ON MED/SURG VIA PHONE, ALL QUESTIONS ANSWERED.
--- NOTE | 2019-10-16 18:15 | NUR ---
PT ARRIVED TO THE FLOOR AT THIS TIME. PT HAS A FLAT AFFECT BUT STATES THAT HE NEEDS NOTHING AT THIS TIME
--- NOTE | 2019-10-16 21:35 | NUR ---
AWAKE, SLOW RESPONSE, ANSWERS APPROPRIATELY, COOP WITH ASSESSMENT, ON ROOM AIR. CBG 229, RECEIVED SHCEDULED LANTUS AND SS HUMALOG INSULIN. SEE MAR. MEDICATED IWTH PHENERGAN 12.5MG IV PER 100CC EMESIS. PT INSTRUCTIED TO NOTIFY RN IF HE HAS MORE EMESIS, STATED UNDERSTANDIG. MED TEACHING AND DM INSTRUCTIONS GIVENINSPANISH, STATED UNDERSTANDING, CONTINUE TO EDUCATE. SL PATENT. VOIDING QS UES URINAL. ED AND INSTRUCTIONS GIVEN INSPANISH
--- NOTE | 2019-10-17 00:31 | NUR ---
EYES CLOSED, NO RESP DISTRESS, HICKUPING IN HIS SLEEP, USING URINAL, VOIDING QS, NO FURTHER EMESIS NOTED, CALL LIGHT AT BEDSIDE, BED ALARM ON
--- NOTE | 2019-10-17 02:20 | NUR ---
AWAKES EASILY, HICCUPING, DENIES ANY PAIN OR SOB. USING URINAL, VOIDING QS, CALL LIGHT AT BEDSIDE, NO FURTHER C/O OR N/V, TURNS SELF IN BED
--- NOTE | 2019-10-17 04:01 | NUR ---
RESTING, NO HICUPS AT THIS TIME, EYES CLOSED, FLUIDS AND CALL LIGHT AT BEDSIDE, BED ALARM ON
--- NOTE | 2019-10-17 05:54 | NUR ---
pt daily weight 56.6 kg. continue to have constant hicups, medicated wtih zofran 4mg iv, had anaother 250cc, thin clear-green emesis. Pt instructed in both Romanian and Turkmen aboaut notifying rn when he has emesis, stated understanding but has done so. continue to reinforce POC
--- NOTE | 2019-10-17 06:03 | NUR ---
PT AWAKE HALF OF THE SHIFT WITH EYES CLOSED AND OPENS EYES SOON YOU ENTER THE ROOM. CONTINUES TO BE ON ROOM AIR, NO DISTRESS, FLAT AFFECTS. ALL INSTRUCTIONS GIVEN IN THAI AND VIETNAMESE, STATES UNDERTNADING BUT DOES NOT FOLLOW THROUGH. CONTINUES TO HAVE INTERMITENT TO CONTINOUS HICCUPING EPISODES. HAS HAD 2 EPISODES OF EMESIS, WAS MEDICATED 1X WITH BOTH ZOFRAN AND PHENERGAN WITH PARTIAL EFFECTIVENESS. USES URINAL AND IS VOIDING QS, TOLERATING LARGE AMOUNTS OF FLUIDS. DAILY WEIGHT 56.6KG STANDING SCALE, VERY WOBBLY AND UNSTEADY. BED ALARM ON, CALL LIGHT AT BEDSIDE
--- NOTE | 2019-10-17 07:32 | NUR ---
DID PATIENT'S BLOOD SUGAR CHECK.
--- NOTE | 2019-10-17 09:01 | NUR ---
PT LYING IN BED AWAKE BUT APPEARS DROWSY. DENIES PAIN OR NAUSEA BUT STATES "I FEEL WEIRD". REFUSED HIS BREAKFAST AND ASKED FOR JUST FRUIT INSTEAD. PT APPEARS EMOTIONAL, VERY WITHDRAWN. CONSTANT HICCIPS NOTED. IV SL FLUSHES EASILY, DRESSING CDI, IV ABX STARTED. CALL LIGHT WITHIN REACH.
--- NOTE | 2019-10-17 09:47 | NUR ---
PT WORKING WITH Jesus
--- NOTE | 2019-10-17 11:36 | NUR ---
PT LYING IN BED, CONT TO REPORT THAT HE FEELS WEIRD BUT DENIES PAIN OR NAUSEA. HAS ONLY EATEN A SMALL FRUIT CUP SO FAR. CALL LIGHT WITHIN REACH.
--- NOTE | 2019-10-17 13:47 | NUR ---
PT IN BED, APPEARS TO BE SLEEPING. EYES CLOSED, RESP EVEN AND UNLABORED. CALL LIGHT WITHIN REACH.
--- NOTE | 2019-10-17 14:20 | NUR ---
pt medicated with prn tylenol for generalized pain.
--- NOTE | 2019-10-17 15:44 | NUR ---
PT APPEARS TO BE SLEEPING SOUNDLY, EYES CLOSED, RESP EVEN AND UNLABORED.
--- NOTE | 2019-10-17 17:37 | NUR ---
PT HAS CONTINUED TO HAVE EMESIS THROUGHOUT SHIFT. MEDICATED WITH PRN PHENERGAN. CALL LIGHT WITHIN REACH.
--- NOTE | 2019-10-17 18:45 | NUR ---
PT DENIES IMPROVEMENT IN NAUSEA/ VOMITING. CONT TO HAVE EMESIS. REFUSED DINNER. IN BED, WITHDRAWN. CALL LIGHT WITHIN REACH.
--- NOTE | 2019-10-17 21:23 | NUR ---
pt awake, continues to have flat affects, answers appropriately in Bulgarian, all procedures explained to him in Bulgarian, instructed to please use call light to call rn when/if further emesis, stated ok, medicated with Zofran 4mg IV per emesis 100cc earlier. denies need for pain meds or urinary problems, uses urinal, voiding QS. Diabetic teaching done, unable toa ssess level of retention as he says ok, ok, i know in guyanese. continue to reinforce taching. tolerating large amounts of fluids, elmer hicups at this time. hob elevated. on room air
--- NOTE | 2019-10-18 00:41 | NUR ---
Medicated with Phenergan, hicups present, 50cc green light colored emesis noteed. coop with assessment. turns self in bed, uses urinal, voiding QS. bed alarm on. tolerating fluids well
--- NOTE | 2019-10-18 05:11 | NUR ---
up for daily standing in weight 56.2kg, a weight loss of 0.2kg. tolerating large amouantsa of cleaar fluids, voiding qs amounts of urine . continues sto have hicups, had 200cc of gfreen light emesis, medicateds with zofran 4mg iv
--- NOTE | 2019-10-18 05:14 | NUR ---
AWAKE AT INTERVALS, TURNS SELF IN BED, HAS CHRONIC CONTINOUS HICUPS THIS SHIFT, HAS HAD A TOTAL OF 350CC EMESIS THIS SHIFT. THICK AND GREEN COLORED, MEDICATED WITH ZOFRAN X2 AND PHENERGAN X1, SEMI EFFECTIVE. PT DOES NTO CALL WHEN HE HAS EMESIS, HAS BEEN INSTRUCTED SEVERAL TIMES IN BOTH [place] AND [place]AY[place] WITH NOR ESULTS, USES URINAL. SL PATENT, ON ROOM AIR. WRITTEN INFORMATION R.T PYELONEPHRITIS AND HYPO/HYPERGLYCEMIS S/SX GIVEN TO HIM IN [place], EXPLAINED VERBALLY AND WRITTEN, STATED UNDERSTANDING, SLOW RESPONSES. CONTINUE TO REINFORCE USE OF CALL IGHT WHEN VOMITING
--- NOTE | 2019-10-18 07:49 | NUR ---
RECEIVED REPORT FROM LILLIAN MONTGOMERY. PT APPEARS TO BE RESTING COMFORTABLY WITH RESPIRATIONS NOTED AT THIS TIME
--- NOTE | 2019-10-18 08:43 | NUR ---
IN PTS ROOM GIVING MORNING MEDS. PT AWAKE ON THIS RNS ARRIVAL. SHORTLY AFTER ARRIVAL PT STARTED GETTING HICCUPS. PT ALERT AND ABLE TO ASK FOR MORE ICE WATER
--- NOTE | 2019-10-18 08:50 | NUR ---
THIS RN STEPPED OUT OF THE ROOM TO GET PT SOME PHENERGAN 12.5 MG, IN THAT TIME PT HAD VOMITED ONCE WITH 400 WATERED EMESIS IN AN EMESIS BAG.
--- NOTE | 2019-10-18 09:26 | NUR ---
PATIENT IN BED RESTING. PATIENT WANTS TO SHOWER LATER. CALL LIGHT IN REACH. NO FURTHER NEEDS AT THIS TIME.
--- NOTE | 2019-10-18 12:43 | NUR ---
PATIENT UP TO BATHROOM TO SHOWER. IND IN SHOWER. ORAL CARE, HANH CARE, SKIN CARE DONE. GOWN PROVIDED. LINENS CHANGTED. PATIENT NOW BACK TO BED. CALL LIGHT IN REACH. NO FURTHER NEEDS AT THIS TIME.
[2019-10-18] MEDS ORDERED: LEVAQUIN750 MG PO (13:23)
[2019-10-18] MEDS ORDERED: FLUCONAZOLE100 MG PO (13:24)
--- NOTE | 2019-10-18 13:45 | NUR ---
PATIENT BEING DISCHARGED TO HOME PER REQUEST. DR HOOKS USED SELF PROPELLED MINING MACHINE OPERATOR PHONE TO DISCUSS THIS WITH HIM. PATIENT SPOKE WITH ME AFTER. HE IS EMPLOYED. WILL DRIVE HIM HOME. HE USES [facility] FOR HEALTH CARE AND [facility] OR [facility]. HE FEELS SAFE TO RETURN HOME WITH FAMILY. UNDERSTANDS THAT IF HE CAN'T KEEP MEDICATIONS DOWN DUE TO VOMITING, HE IS TO RETURN TO A HOSPITAL. PATIENT DENIES QUESTIONS.
--- NOTE | 2019-10-18 13:53 | NUR ---
PT GETING MEDS AND WILL BE GOING HOME TODAY. THIS RN PROVIDED PT WITH SOME ZOFRAN TO MAKE HIM MORE COMFORTABLE FOR THE DISCHARGE HOME
--- NOTE | 2019-10-18 14:16 | NUR ---
PATIENT IN BED RESTING. CALL LIGHT IN REACH. NO FURTHER NEEDS AT THIS TIME.
--- NOTE | 2019-10-18 14:36 | NUR ---
IN PTS ROOM TO GIVE DISCHARGE TEACHING. THIS RN UNSURE OF HOW MUCH THE PT UNDERSTOOD/ CARED ABOUT DURING THE DISCHARGE TEACHING. PT KEPT SAYING "OKAY" TO EVERYTHING. THIS RN ATTEMPTED TO USE TEACH BACK METHOD BUT PT WASN'T WILLING TO PARTICIPATE PT EARLIER WAS ABLE TO HAVE A CONVERSATION IN PERSI[place] SO THIS RN IS NOT SURE IF THIS WAS A LANUAGE BARRIER
== END 2019-10-18 15:00 | disposition home or self-care (01) | DRG 638 ==
LOC: ED 13:41 → CCU 13:43 → MS 10-15 16:49
PROVIDERS: ADMIT Student in an Organized Health Care Education/Training Program
DX: E10.10 Type 1 diabetes mellitus with ketoacidosis without coma (principal); N12 Tubulo-interstitial nephritis, not specified as acute or chronic; R78.81 Bacteremia; B49 Unspecified mycosis; E87.6 Hypokalemia; B96.20 Unspecified Escherichia coli [E. coli] as the cause of diseases classified elsewhere; R06.6 Hiccough; Z79.4 Long term (current) use of insulin; Z20.828 Contact with and (suspected) exposure to other viral communicable diseases
CPT/HCPCS: 36415; 71045; 74177; 80048; 80053; 81001; 82010; 82800; 83036; 83605; 83690; 83735; 84100; 84484; 85025; 85651; 87040; 87077; 87186; 96361; 96365; 96366; 96367; 96368; 96374; 96375; 96376; 97161; 99285-25; C9113; G0378; J1815; J1956; J2405; J2550; J3475; J3480; J7030; J7042; J7060; J7121; Q9967; U0002